=== PATIENT | female | born 1955 | race African-American/Black ===

== ENCOUNTER 2016-04-02 20:44 | Emergency (ER) | payer MEDICARE, MEDICAID ==
[~2016-04-02] VITALS: Ht 167.6 cm; Wt 90.9 kg
[~2016-04-02 20:44] MED LIST: ASCO500C PO; CALCTAB92 PO; HYDR-1530 PO; HYDR-3533 PO; IRON325T2 PO; LISI10TA PO; LOMO PO; NEXI40CA PO; TAB-TAB PO; VITA400D PO; XANA1TAB6 PO; ZOLP10TA3 PO
[2016-04-02 20:47] VITALS: BP 155/95; PULSE 105; RESP 16; TEMP 98.2; O2SAT 96
--- NOTE | 2016-04-03 23:50 | EKG ---
Date Performed: 04/02/2016 Time Performed: 20:59:53 PTAGE: 60 years EKG: Sinus rhythm NORMAL ECG PREVIOUS TRACING : 10/17/2015 08.35 DOCTOR: Natalie Trinidad Interpretating Date/Time 04/03/2016 23:43:29
== END 2016-04-02 22:56 | disposition left against medical advice (07) ==
LOC: NED 20:44
DX: Z53.21 Procedure and treatment not carried out due to patient leaving prior to being seen by health care provider (principal)
CPT/HCPCS: 93005; 99281

== ENCOUNTER 2016-10-09 12:42 | Emergency (ER) | payer MEDICARE, MEDICAID ==
[~2016-10-09] VITALS: Ht 167.6 cm; Wt 90.0 kg
[2016-10-09 12:44] VITALS: BP 129/85; PULSE 101; RESP 20; TEMP 98.6; O2SAT 96
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
[2016-10-09] MEDS ORDERED: NORC5TAB PO (13:48)
[2016-10-09] MEDS ORDERED: XANA1TAB2 PO (13:48)
[2016-10-09] MEDS ORDERED: AMBI10TA PO (13:48)
[2016-10-09] MEDS ORDERED: FURO20TA PO (13:48)
[2016-10-09] MEDS ORDERED: LISI10TA PO (13:48)
[2016-10-09] MEDS ORDERED: NEXI40CA PO (13:48)
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
[2016-10-09 14:05] VITALS: BP 120/81; TEMP 97.8
== END 2016-10-09 14:05 | disposition home or self-care (01) ==
LOC: NEPD 12:42
DX: M25.531 Pain in right wrist (principal); I10 Essential (primary) hypertension; K21.9 Gastro-esophageal reflux disease without esophagitis; Z87.442 Personal history of urinary calculi
CPT/HCPCS: 73110; 99283

== ENCOUNTER 2016-11-04 15:36 | Emergency (ER) | payer MEDICARE, OTHER ==
[~2016-11-04 15:36] MED LIST changes: +AMBI10TA PO; -ASCO500C PO; -CALCTAB92 PO; +FURO20TA PO; -HYDR-1530 PO; -HYDR-3533 PO; -IRON325T2 PO; -LOMO PO; +NORC5TAB PO; -TAB-TAB PO; -VITA400D PO; +XANA1TAB2 PO; -XANA1TAB6 PO; -ZOLP10TA3 PO
[2016-11-04 15:38] VITALS: BP 137/98; PULSE 99; RESP 15; TEMP 98.4; O2SAT 98
--- NOTE | 2016-11-04 16:43 | PD ---
HPI Chief Complaint: Edema Time Seen by Provider: 15:49 Travel History International Travel<30 days: No Contact w/Intl Traveler<30days: No Traveled to known affect area: No History of Present Illness HPI This is a 61-year-old female who presents to the emergency department with swelling in her legs to the been going on for 3 weeks, constant, moderate severity, worse with walking, improved with rest. She denies any shortness of breath, decreased urination or chest pain. She's never had leg swelling like this before. PFSH Past Medical History Arthritis: Yes Autoimmune Disease: No Blood Disorders: No Anxiety: Yes Depression: Yes Heart Rhythm Problems: No Cancer: Yes (LIVER--PT IS UNSURE OF WHAT HER LIVER PROBLEM IS) Cardiovascular Problems: Yes (HTN) High Cholesterol: No Chemotherapy: Yes Chest Pain: Yes Congestive Heart Failure: No Cerebrovascular Accident: No Diabetes: No Diminished Hearing: No Endocrine: Yes Gastrointestinal Disorders: Yes (GERD) GERD: Yes Glaucoma: No Genitourinary: No Headaches: No Hepatitis: No Hiatal Hernia: No Hypertension: Yes Immune Disorder: No Kidney Stones: Yes (LITHOTRIPSY) Medical other: Yes (MASS/NODULES ON LIVER , RIGHT EAR PAIN ,TMJ) Neurologic: No Psychiatric: Yes (ANXIETY) Respiratory: No Immunizations Current: No Myocardial Infarction: No Radiation Therapy: No Renal Failure: No Seizures: No Thyroid Disease: Yes Ulcer: Yes Tetanus Vaccination: Unknown Influenza Vaccination: No Menopausal: Yes : 3 Para: 3 Miscarriage: 0 Past Surgical History Abdominal Surgery: Yes (PARTIAL GASTRECTOMY DUE TO GASTRIC ULCERS,LIVER SX. DUE TO LIVER CA IN 1998) AICD: No Arteriovenous Shunt: No Cardiac Surgery: No Ear Surgery: No Endocrine Surgery: No Eye Surgery: No Genitourinary Surgery: No Gynecologic Surgery: No Hysterectomy: Yes (PARTIAL IN 2000) Joint Replacement: Yes (RIGHT TOTAL KNEE) Neurologic Surgery: No Oral Surgery: Yes Pacemaker: No Thoracic Surgery: No Tonsillectomy: Yes Other Surgery: Yes (Parathyroidectomy, pituatary resection, vagotomy) Social History Alcohol Use: No (PT DENIES ) Tobacco Use: No (PT DENIES) Substance Use: No (PT DENIES) Allergies-Medications (Allergen,Severity, Reaction): Coded Allergies: Contrast Media (Verified Allergy, Intermediate, EDEMA, 11/04/16) Ultram (Verified Allergy, Unknown, swelling, 11/04/16) AMITRIPTYLINE HCL (Verified Adverse Reaction, Severe, PT STATES "KEEPS ME FROM URINATING", 11/04/16) Aspirin (Verified Adverse Reaction, Severe, RINGING EARS, 11/04/16) Benzodiazepines (Verified Adverse Reaction, Severe, RINGING IN EARS, ) Flexeril (Verified Adverse Reaction, Severe, EARS RINGING, 11/04/16) Uncoded Allergies: mucinex (Adverse Reaction, Intermediate, 10/16/15) Reported Meds & Prescriptions Reported Meds & Active Scripts Active Reported Xanax (Alprazolam) 1 Mg Tab 1 Mg PO Q6H PRN Ambien (Zolpidem Tartrate) 10 Mg Tab 10 Mg PO HS PRN Nexium (Esomeprazole DR) 40 Mg Capdr 40 Mg PO DAILY [place] (Hydrocodone-Acetaminophen) 5-325 mg Tab 1 Tab PO Q6H PRN Lisinopril-Hctz 10-12.5 Mg Tab 1 Tab PO DAILY Review of Systems Except as stated in HPI: all other systems reviewed are Neg Physical Exam Narrative GENERAL:Well appearing, no acute distress SKIN: Focused skin assessment warm and dry. HEAD: Atraumatic. Normocephalic. EYES: Pupils equal and round. No injection or drainage. ENT: Moist mucous membranes NECK: Trachea midline. CARDIOVASCULAR: Regular rate and rhythm. No murmur appreciated. 2+ bilateral lower extremity pitting edema. RESPIRATORY: Clear to auscultation. Breath sounds equal bilaterally. GASTROINTESTINAL: Abdomen soft, non-tender, nondistended. MUSCULOSKELETAL: No obvious deformities. NEUROLOGICAL: Awake and alert. No obvious cranial nerve deficits. Moving all extremities. PSYCHIATRIC: Appropriate mood and affect; insight and judgment normal. Data Data Last Documented VS Vital Signs Date Time Temp Pulse Resp B/P Pulse Ox O2 Delivery O2 Flow Rate FiO2 11/04/16 16:05 99 Room Air 11/04/16 15:38 98.4 99 15 137/98 Orders Complete Blood Count With Diff (11/04/16 16:03) Comprehensive Metabolic Panel (11/04/16 16:03) ^ Insert Iv (11/04/16 16:03) B-Type Natriuretic Peptide (11/04/16 16:03) Us Leg Venous Doppler Bilat (11/04/16 ) Labs Laboratory Tests Test 11/04/16 16:30 White Blood Count 6.7 TH/MM3 Red Blood Count 3.94 MIL/MM3 Hemoglobin 10.4 GM/DL Hematocrit 30.0 % Mean Corpuscular Volume 76.2 FL Mean Corpuscular Hemoglobin 26.3 PG Mean Corpuscular Hemoglobin 34.6 % Concent Red Cell Distribution Width 18.0 % Platelet Count 349 TH/MM3 Mean Platelet Volume 8.3 FL Neutrophils (%) (Auto) 59.1 % Lymphocytes (%) (Auto) 26.9 % Monocytes (%) (Auto) 11.3 % Eosinophils (%) (Auto) 1.5 % Basophils (%) (Auto) 1.2 % Neutrophils # (Auto) 4.0 TH/MM3 Lymphocytes # (Auto) 1.8 TH/MM3 Monocytes # (Auto) 0.8 TH/MM3 Eosinophils # (Auto) 0.1 TH/MM3 Basophils # (Auto) 0.1 TH/MM3 CBC Comment AUTO DIFF Differential Comment AUTO DIFF CONFIRMED Sodium Level 143 MEQ/L Potassium Level 4.2 MEQ/L Chloride Level 112 MEQ/L Carbon Dioxide Level 24.0 MEQ/L Anion Gap 7 MEQ/L Blood Urea Nitrogen 15 MG/DL Creatinine 1.19 MG/DL Estimat Glomerular Filtration 56 ML/MIN Rate Random Glucose 157 MG/DL Calcium Level 9.8 MG/DL Total Bilirubin 0.3 MG/DL Aspartate Amino Transf 32 U/L (AST/SGOT) Alanine Aminotransferase 32 U/L (ALT/SGPT) Alkaline Phosphatase 185 U/L B-Type Natriuretic Peptide 114 PG/ML Total Protein 7.6 GM/DL Albumin 3.3 GM/DL MDM Medical Decision Making Medical Screen Exam Complete: Yes Emergency Medical Condition: Yes Interpretation(s) Afebrile, mild tachycardia, mild hypertension No leukocytosis Anemia Electrolytes are reassuring BNP is indeterminate Last 24 hours Impressions Lower Extremity Ultrasound 11/04/16 0000 Signed Impressions: Service Date/Time: Friday, November 04, 2016 17:15 - CONCLUSION: Normal examination. Jose Luis Coburn MD Differential Diagnosis DVT, congestive heart failure, renal failure Narrative Course This is a 61-year-old female who presents to the emergency department with lower extremity swelling that's been present for 3 weeks. She has no other symptoms. Labs were obtained which were reassuring. Her BNP is indeterminate but she has no other signs or symptoms of congestive heart failure. Ultrasound was negative for DVT. I think she is appropriate to follow-up with her outpatient primary care physician. Diagnosis Primary Impression: Dependent edema Patient Instructions: General Instructions Additional Instructions: If you develop severe chest pain, shortness of breath, sweating, lightheadedness , dizziness or difficulty breathing return to the emergency department immediately. Followup with your primary care physician in 2-3 days if your symptoms are not resolved. Med/Other Pt SpecificInfo: No Change to Meds Disposition: 01 DISCHARGE HOME Condition: Stable Brissa Fu MD Nov 04, 2016 16:43
[2016-11-04 17:19] LABS: BASOPHIL # 0.1 TH/MM3 (0-0.2); BASOPHIL % 1.2 % (0.0-2.0); EOSINOPHIL # 0.1 TH/MM3 (0-0.4); EOSINOPHIL % 1.5 % (0.0-4.0); LYMPH % 26.9 % (9.0-44.0); LYMPHOCYTE # 1.8 TH/MM3 (1.0-4.8); MEAN CELL VOLUME 76.2 FL (80.0-100.0); MEAN CORPUSCULAR HEMOGLOBIN 26.3 PG (27.0-34.0); MEAN CORPUSCULAR HGB CONC 34.6 % (32.0-36.0); MONO % 11.3 % (0.0-8.0); NEUT % 59.1 % (16.0-70.0); PLATELET COUNT 349 TH/MM3 (150-450); RED BLOOD COUNT 3.94 MIL/MM3 (4.00-5.30); WHITE BLOOD COUNT 6.7 TH/MM3 (4.0-11.0)
[2016-11-04 17:29] LABS: HEMO FLAGS AUTO DIFF
[2016-11-04 17:36] LABS: ALT (GPT) 32 U/L (10-53); ANION GAP 7 MEQ/L (5-15); AST (GOT) 32 U/L (15-37); BLOOD UREA NITROGEN 15 MG/DL (7-18); CHLORIDE 112 MEQ/L (98-107); GLOMERULAR FILTRATION RATE 56 ML/MIN (>89); SODIUM (NA) 143 MEQ/L (136-145)
[2016-11-04 17:37] LABS: ALKALINE PHOSPHATASE 185 U/L (45-117); TOTAL BILIRUBIN ADULT 0.3 MG/DL (0.2-1.0)
--- NOTE | 2016-11-04 17:47 | RADRPT ---
EXAM DATE/TIME: 11/04/2016 17:15 [facility] COMPARISON: No previous studies available for comparison. INDICATIONS : Bilateral leg swelling. MEDICAL HISTORY : Hypothyroidism. Hypertension. Gastroesophageal reflux disease. Ulcers. Renal lithiasis. SURGICAL HISTORY : Tonsillectomy. Partial gastrectomy. partial hysterectomy. Lithotripsy. ENCOUNTER: Initial ACUITY: 3 weeks PAIN SCORE: 8/10 LOCATION: Bilateral legs. TECHNIQUE: Venous ultrasound of the left and right leg was performed from the inguinal ligament to the proximal calf. Real-time, color Doppler and spectral tracing, compression and augmentation techniques were us ed. FINDINGS: RIGHT LEG: There is normal compressibility of the deep venous system from the inguinal region to the proximal ca lf. No echogenic clot is seen in the lumen of the common femoral, femoral, popliteal, and posterior tibial veins. There is a normal response of the venous system to proximal and distal augmentation an d respiration. LEFT LEG: There is normal compressibility of the deep venous system from the inguinal region to the proximal ca lf. No echogenic clot is seen in the lumen of the common femoral, femoral, popliteal, and posterior tibial veins. There is a normal response of the venous system to proximal and distal augmentation an d respiration. CONCLUSION: Normal examination. Jose Luis Coburn MD on November 04, 2016 at 17:45 Board Certified Radiologist. This report was verified electronically.
[2016-11-04 17:51] LABS: POTASSIUM 4.2 MEQ/L (3.5-5.1)
[2016-11-04 17:56] LABS: SCAN/DIFF AUTO DIFF CONFIRMED
== END 2016-11-04 18:48 | disposition home or self-care (01) ==
LOC: NEPE 15:36
DX: R60.0 Localized edema (principal); I10 Essential (primary) hypertension; Z87.442 Personal history of urinary calculi; Z87.19 Personal history of other diseases of the digestive system; K21.9 Gastro-esophageal reflux disease without esophagitis; E03.9 Hypothyroidism, unspecified
CPT/HCPCS: 80053; 83880; 85025; 93970; 99284

== ENCOUNTER 2016-12-02 08:08 | Emergency (ER) | payer MEDICARE, OTHER ==
[~2016-12-02 08:08] MED LIST changes: -FURO20TA PO
[2016-12-02 08:11] VITALS: BP 136/96; PULSE 115; RESP 15; TEMP 98.4; O2SAT 98
[2016-12-02 08:18] VITALS: PULSE 89
[2016-12-02 08:34] LABS: BLOOD, URINE NEG (NEG); COMMENT (UR) CULT NOT INDICATED; CULTURE IF INDICATED CULT NOT INDICATED; GLUCOSE,URINE NEG (NEG); KETONE, URINE NEG (NEG); NITRITE,URINE NEG (NEG); PH, URINE 5.5 (5.0-8.5); URINE COLOR LIGHT-YELLOW (YELLW/STRAW)
[2016-12-02] MEDS ORDERED: FENT50DI T-DERMAL (09:04)
--- NOTE | 2016-12-02 09:28 | PD ---
HPI Chief Complaint: Complaint Time Seen by Provider: 09:04 Travel History International Travel<30 days: No Contact w/Intl Traveler<30days: No Traveled to known affect area: No History of Present Illness HPI 7-year-old with a recurrent complaint of increase urination "all night". Skin surface may have diabetes. States she has been feeling well for a while and has been losing some weight. She looks otherwise well. No other complaints. History Past Medical History Narrative Medical Past medical problems patient states "see my chart" Records show, arthritis, anxiety, depression, possible cancer, hypertension, chemotherapy, chest pain, GERD, kidney stones and lithotripsy, anxiety Menopausal: Yes : 3 Para: 3 Social History Alcohol Use: No (PT DENIES ) Tobacco Use: No (PT DENIES) Allergies-Medications (Allergen,Severity, Reaction): Coded Allergies: diatrizoate meglumine (Unverified Allergy, Intermediate, EDEMA, 11/13/16) gadobenic acid (Unverified Allergy, Intermediate, EDEMA, 11/13/16) gadodiamide (Unverified Allergy, Intermediate, EDEMA, 11/13/16) gadoteridol (Unverified Allergy, Intermediate, EDEMA, 11/13/16) iodixanol (Unverified Allergy, Intermediate, EDEMA, 11/13/16) iohexol (Unverified Allergy, Intermediate, EDEMA, 11/13/16) tramadol (Unverified Allergy, Unknown, swelling, 11/13/16) alprazolam (Unverified Adverse Reaction, Severe, RINGING IN EARS, 11/13/16) amitriptyline (Unverified Adverse Reaction, Severe, PT STATES "KEEPS ME FROM URINATING", 11/13/16) aspirin (Unverified Adverse Reaction, Severe, RINGING EARS, 11/13/16) clonazepam (Unverified Adverse Reaction, Severe, RINGING IN EARS, 11/13/16) clorazepate dipotassium (Unverified Adverse Reaction, Severe, RINGING IN EARS, 11/13/16) cyclobenzaprine (Unverified Adverse Reaction, Severe, EARS RINGING, ) diazepam (Unverified Adverse Reaction, Severe, RINGING IN EARS, 11/13/16) lorazepam (Unverified Adverse Reaction, Severe, RINGING IN EARS, 11/13/16) midazolam (Unverified Adverse Reaction, Severe, RINGING IN EARS, 11/13/16) oxazepam (Unverified Adverse Reaction, Severe, RINGING IN EARS, 11/13/16) temazepam (Unverified Adverse Reaction, Severe, RINGING IN EARS, 11/13/16) Uncoded Allergies: mucinex (Adverse Reaction, Intermediate, 10/16/15) Reported Meds & Prescriptions Reported Meds & Active Scripts Active Reported Fentanyl Patch 72 HR (Fentanyl) 50 Mcg/Hr Patch 50 Mcg T-DERMAL Q72H Remove old patch when new one placed. Xanax (Alprazolam) 1 Mg Tab 1 Mg PO Q6H PRN Ambien (Zolpidem Tartrate) 10 Mg Tab 10 Mg PO HS PRN Nexium (Esomeprazole DR) 40 Mg Capdr 40 Mg PO DAILY [place] (Hydrocodone-Acetaminophen) 5-325 mg Tab 1 Tab PO Q6H PRN Lisinopril-Hctz 10-12.5 Mg Tab 1 Tab PO DAILY Review of Systems Except as stated in HPI: all other systems reviewed are Neg Physical Exam Narrative GENERAL: Well-appearing 7-year-old woman in acute distress. SKIN: Focused skin assessment warm/dry. HEAD: Atraumatic. Normocephalic. EYES: Pupils equal and round. No scleral icterus. No injection or drainage. ENT: No nasal bleeding or discharge. Mucous membranes pink and moist. NECK: Trachea midline. No JVD. CARDIOVASCULAR: Regular rate and rhythm. No murmur appreciated. RESPIRATORY: No accessory muscle use. Clear to auscultation. Breath sounds equal bilaterally. GASTROINTESTINAL: Abdomen soft, non-tender, nondistended. Hepatic and splenic margins not palpable. MUSCULOSKELETAL: No obvious deformities. No clubbing. No cyanosis. No edema. NEUROLOGICAL: Awake and alert. No obvious cranial nerve deficits. Motor grossly within normal limits. Normal speech. PSYCHIATRIC: Appropriate mood and affect; insight and judgment normal. Data Data Last Documented VS Vital Signs Date Time Temp Pulse Resp B/P (MAP) Pulse Ox O2 Delivery O2 Flow Rate FiO2 12/02/16 08:18 89 12/02/16 08:11 98.4 15 98 Orders Orders Urinalysis - C+S If Indicated (12/02/16 08:17) Labs Laboratory Tests Test 12/02/16 08:25 Urine Color LIGHT-YELLOW Urine Turbidity CLEAR Urine pH 5.5 Urine Specific [place] 1.008 Urine Protein NEG mg/dL Urine Glucose (UA) NEG mg/dL Urine Ketones NEG mg/dL Urine Occult Blood NEG Urine Nitrite NEG Urine Bilirubin NEG Urine Urobilinogen LESS THAN 2.0 MG/DL Urine Leukocyte Esterase TRACE Urine RBC LESS THAN 1 /hpf Urine WBC 1 /hpf Microscopic Urinalysis Comment CULT NOT INDICATED MDM Medical Decision Making Medical Screen Exam Complete: Yes Emergency Medical Condition: Yes Interpretation(s) Urine is negative, nonfasting blood sugar 150 Differential Diagnosis Diabetes, diuretic use, anxiety, infection, other Narrative Course Medical decision making a 7-year-old woman complaining of frequent urination. Blood sugar and urine is unremarkable. Recommend outpatient follow-up. Diagnosis Primary Impression: Frequency of urination Additional Instructions: Follow-up with her primary doctor Saturday. Return to the emergency department for any new or worsening symptoms. Disposition: 01 DISCHARGE HOME Condition: Stable Hermilo Sky MD Dec 02, 2016 09:28
== END 2016-12-02 09:40 | disposition home or self-care (01) ==
LOC: NEPD 08:08
DX: R35.0 Frequency of micturition (principal); M13.80 Other specified arthritis, unspecified site; F41.9 Anxiety disorder, unspecified; F32.9 Major depressive disorder, single episode, unspecified; I10 Essential (primary) hypertension; K21.9 Gastro-esophageal reflux disease without esophagitis; Z87.442 Personal history of urinary calculi; Z79.899 Other long term (current) drug therapy; Z88.8 Allergy status to other drugs, medicaments and biological substances
CPT/HCPCS: 81001; 99283

== ENCOUNTER 2017-04-25 14:38 | Emergency (ER) | payer MEDICARE, OTHER ==
[~2017-04-25] VITALS: Ht 170.2 cm; Wt 80.0 kg
[~2017-04-25 14:38] MED LIST changes: +FENT50DI T-DERMAL
[2017-04-25 14:59] VITALS: BP 164/103; PULSE 124; RESP 20; TEMP 98.6; O2SAT 98
[2017-04-25 15:10] VITALS: O2SAT 95
--- NOTE | 2017-04-25 17:06 | PD ---
HPI Chief Complaint: Altered Mental Status Time Seen by Provider: 15:24 Travel History International Travel<30 days: No Contact w/Intl Traveler<30days: No Traveled to known affect area: No History of Present Illness HPI 61-year-old female with history of dementia, presents here today with complaints of worsening dementia. Patient is brought in by EVAC after her daughter apparently found her knocking on her neighbor's door. Daughter states that she has been progressively becoming more demented. The patient is unable to give any history. Daughter states that she has been becoming more and more paranoid. She reports that she feels as though she also needs to be seen by psychiatrist. There is no reported fevers, chills. There is no reported cough. There is no reported nausea vomiting diarrhea. There are no other complaints at the time of my examination. PFSH Past Medical History Arthritis: Yes Autoimmune Disease: No Blood Disorders: No Anxiety: Yes Depression: Yes Heart Rhythm Problems: No Cancer: Yes (LIVER--PT IS UNSURE OF WHAT HER LIVER PROBLEM IS) Cardiovascular Problems: Yes (HTN) High Cholesterol: No Chemotherapy: Yes Chest Pain: Yes Congestive Heart Failure: No Cerebrovascular Accident: No Diabetes: Yes Patient Takes Glucophage: No Diminished Hearing: No Endocrine: Yes Gastrointestinal Disorders: Yes (GERD) GERD: Yes Glaucoma: No Genitourinary: No Headaches: No Hepatitis: No Hiatal Hernia: No Hypertension: Yes Immune Disorder: No Kidney Stones: Yes (LITHOTRIPSY) Medical other: Yes (MASS/NODULES ON LIVER , RIGHT EAR PAIN ?TMJ) Neurologic: No Psychiatric: Yes (ANXIETY) Reproductive: No Respiratory: No Immunizations Current: No Myocardial Infarction: No Radiation Therapy: No Renal Failure: No Seizures: No Thyroid Disease: Yes Ulcer: Yes Tetanus Vaccination: Unknown Influenza Vaccination: No ?: Not Menopausal: Yes : 3 Para: 3 Miscarriage: 0 Past Surgical History Abdominal Surgery: Yes (PARTIAL GASTRECTOMY DUE TO GASTRIC ULCERS,LIVER SX. DUE TO LIVER CA IN 1998) AICD: No Arteriovenous Shunt: No Cardiac Surgery: No Ear Surgery: No Endocrine Surgery: No Eye Surgery: No Genitourinary Surgery: No Gynecologic Surgery: No Hysterectomy: Yes (PARTIAL IN 2000) Insulin Pump: No Joint Replacement: Yes (RIGHT TOTAL KNEE) Neurologic Surgery: No Oral Surgery: Yes Pacemaker: No Thoracic Surgery: No Tonsillectomy: Yes Other Surgery: Yes (Parathyroidectomy, pituatary resection, vagotomy) Social History Alcohol Use: No Tobacco Use: No Substance Use: No Allergies-Medications (Allergen,Severity, Reaction): Coded Allergies: diatrizoate meglumine (Unverified Allergy, Intermediate, EDEMA, 04/25/17) gadobenic acid (Unverified Allergy, Intermediate, EDEMA, 04/25/17) gadodiamide (Unverified Allergy, Intermediate, EDEMA, 04/25/17) gadoteridol (Unverified Allergy, Intermediate, EDEMA, 04/25/17) iodixanol (Unverified Allergy, Intermediate, EDEMA, 04/25/17) iohexol (Unverified Allergy, Intermediate, EDEMA, 04/25/17) tramadol (Unverified Allergy, Unknown, swelling, 04/25/17) alprazolam (Unverified Adverse Reaction, Severe, RINGING IN EARS, 04/25/17) amitriptyline (Unverified Adverse Reaction, Severe, PT STATES "KEEPS ME FROM URINATING", 04/25/17) aspirin (Unverified Adverse Reaction, Severe, RINGING EARS, 04/25/17) clonazepam (Unverified Adverse Reaction, Severe, RINGING IN EARS, 04/25/17) clorazepate dipotassium (Unverified Adverse Reaction, Severe, RINGING IN EARS, 04/25/17) cyclobenzaprine (Unverified Adverse Reaction, Severe, EARS RINGING, ) diazepam (Unverified Adverse Reaction, Severe, RINGING IN EARS, 04/25/17) lorazepam (Unverified Adverse Reaction, Severe, RINGING IN EARS, 04/25/17) midazolam (Unverified Adverse Reaction, Severe, RINGING IN EARS, 04/25/17) oxazepam (Unverified Adverse Reaction, Severe, RINGING IN EARS, 04/25/17) temazepam (Unverified Adverse Reaction, Severe, RINGING IN EARS, 04/25/17) Uncoded Allergies: mucinex (Adverse Reaction, Intermediate, 10/16/15) Reported Meds & Prescriptions Reported Meds & Active Scripts Active Reported Fentanyl Patch 72 HR (Fentanyl) 50 Mcg/Hr Patch 50 Mcg T-DERMAL Q72H Remove old patch when new one placed. Xanax (Alprazolam) 1 Mg Tab 1 Mg PO Q6H PRN Ambien (Zolpidem Tartrate) 10 Mg Tab 10 Mg PO HS PRN Nexium (Esomeprazole DR) 40 Mg Capdr 40 Mg PO DAILY [place] (Hydrocodone-Acetaminophen) 5-325 mg Tab 1 Tab PO Q6H PRN Lisinopril-Hctz 10-12.5 Mg Tab 1 Tab PO DAILY Review of Systems ROS Limitations: Clinical Condition (Unable to obtain clear review of systems other than what the daughter provided in the HPI.), Poor Historian (Patient has a history of dementia and is unable to give any clear history.) Physical Exam Narrative GENERAL: Well-developed well-nourished female in no acute respiratory distress. The patient was chewing on ice when I entered the room. She was cooperative however was not able to give clear history secondary to her history of dementia. SKIN: Focused skin assessment warm/dry. HEAD: Atraumatic. Normocephalic. EYES: Pupils equal and round. No scleral icterus. No injection or drainage. ENT: No nasal bleeding or discharge. Mucous membranes pink and moist. NECK: Trachea midline. Supple. CARDIOVASCULAR: Regular rate and rhythm. No murmur appreciated. RESPIRATORY: No accessory muscle use. Clear to auscultation. Breath sounds equal bilaterally. GASTROINTESTINAL: Abdomen soft, non-tender, nondistended. Hepatic and splenic margins not palpable. MUSCULOSKELETAL: No obvious deformities. No clubbing. No cyanosis. No edema. NEUROLOGICAL: Awake and confused. She would follow commands. No obvious cranial nerve deficits. Motor grossly within normal limits. Normal speech. PSYCHIATRIC: Patient is guarded. She also states that her daughter's young children are not able to care for her and are out to get her. Data Data Last Documented VS Vital Signs Date Time Temp Pulse Resp B/P (MAP) Pulse Ox O2 Delivery O2 Flow Rate FiO2 04/25/17 15:10 95 Room Air 04/25/17 14:59 98.6 124 20 164/103 (123) Orders Orders Complete Blood Count With Diff (04/25/17 15:48) Basic Metabolic Panel (Bmp) (04/25/17 15:48) Urinalysis - C+S If Indicated (04/25/17 15:48) Iv Access Insert/Monitor (04/25/17 15:48) Ecg Monitoring (04/25/17 15:48) Oximetry (04/25/17 15:48) Psych Screen (04/25/17 15:48) MDM Medical Decision Making Medical Screen Exam Complete: Yes Emergency Medical Condition: Yes Differential Diagnosis Worsening dementia versus paranoid component versus metabolic derangement. Narrative Course 61-year-old female history of dementia, sent here by her daughter for worsening dementia. The patient apparently was found outside knocking on her next-door neighbor's door. The daughter was concerned that the patient could have a psychiatric component here. The patient is awake answering questions however appropriately demented. She is nontoxic appearing. There is no reported nausea vomiting diarrhea. The patient has no fever. She does not appear to be in any distress. The patient is not suicidal or homicidal. I had our keycase assembler come and see the patient and the daughter. The daughter initially wanted to have psychiatry see her. After waiting for psychiatry screen, the daughter states that she wishes to take her mother home. She will take her home and follow-up with her doctor. She is instructed she can return anytime. T the patient and daughter refusing blood work and urine at this time. I do not feel it is necessary at this time. Diagnosis Primary Impression: Worsening dementia Additional Instructions: Follow-up with primary care physician. Return if fevers, chills, nausea vomiting diarrhea, or any other recent concerns. Disposition: 01 DISCHARGE HOME Condition: Stable Andrew Almeida MD Apr 25, 2017 17:06
[2017-04-25 18:00] LABS: BACTERIA, URINE RARE /hpf; BILIRUBIN, URINE NEG (NEG); BLOOD, URINE NEG (NEG); CALCIUM OXALATE CRYSTALS,URINE OCC /hpf; GLUCOSE,URINE NEG (NEG); HYALINE CAST, URINE 3 /lpf (RARE); KETONE, URINE NEG (NEG); MUCUS URINE FEW /lpf (OCC); NITRITE,URINE NEG (NEG); PH, URINE 5.5 (5.0-8.5); SQUAMOUS EPITHELIAL CELL URINE 2 /hpf (0-5); URINE COLOR YELLOW (YELLW/STRAW); URINE LEUKOCYTE ESTERASE MOD (NEG)
== END 2017-04-25 17:34 | disposition home or self-care (01) ==
LOC: NEPE 14:38
DX: F03.90 Unspecified dementia, unspecified severity, without behavioral disturbance, psychotic disturbance, mood disturbance, and anxiety (principal); F32.9 Major depressive disorder, single episode, unspecified; E11.9 Type 2 diabetes mellitus without complications; I10 Essential (primary) hypertension; R82.99 Other abnormal findings in urine; K21.9 Gastro-esophageal reflux disease without esophagitis; B96.89 Other specified bacterial agents as the cause of diseases classified elsewhere; Z85.05 Personal history of malignant neoplasm of liver
CPT/HCPCS: 81001; 87086; 99283

== ENCOUNTER 2017-04-26 04:21 | Inpatient (IN) | payer MEDICARE, OTHER ==
[~2017-04-26] VITALS: Ht 167.6 cm; Wt 80.0 kg
[2017-04-26 04:39] VITALS: BP 142/75; PULSE 80; RESP 16; TEMP 98.6; O2SAT 98
[2017-04-26] MEDS ORDERED: ACETAMINOPHEN 325 MG TAB PO ONE (04:45)
[2017-04-26] MEDS ORDERED: OLANZapine IM 10 MG VIAL IM ONE (04:45)
--- NOTE | 2017-04-26 04:52 | PD ---
HPI Chief Complaint: Psychiatric Symptoms Time Seen by Provider: 04:39 Travel History International Travel<30 days: No Contact w/Intl Traveler<30days: No Traveled to known affect area: No History of Present Illness HPI 61-year-old black female presents to the emergency department under [place] act by PD. She was found wandering outside. The patient appears confused. This is a patient was just seen in the ER yesterday for worsening dementia. History is visit was an evaluation because she was out side knocking on neighbor's doors. Patient was taken home by family members. The patient here complains of a headache. She is pleasantly confused. She is unable to give any meaningful history. PFSH Past Medical History Narrative Medical History through review the medical record. Arthritis: Yes Autoimmune Disease: No Blood Disorders: No Anxiety: Yes Depression: Yes Heart Rhythm Problems: No Cancer: Yes (LIVER--PT IS UNSURE OF WHAT HER LIVER PROBLEM IS) Cardiovascular Problems: Yes (HTN) High Cholesterol: No Chemotherapy: Yes Chest Pain: Yes Congestive Heart Failure: No Cerebrovascular Accident: No Diabetes: Yes Patient Takes Glucophage: No Diminished Hearing: No Endocrine: Yes Gastrointestinal Disorders: Yes (GERD) GERD: Yes Glaucoma: No Genitourinary: No Headaches: No Hepatitis: No Hiatal Hernia: No Hypertension: Yes Immune Disorder: No Kidney Stones: Yes (LITHOTRIPSY) Medical other: Yes (MASS/NODULES ON LIVER , RIGHT EAR PAIN ?TMJ) Neurologic: No Psychiatric: Yes (ANXIETY) Reproductive: No Respiratory: No Immunizations Current: No Myocardial Infarction: No Radiation Therapy: No Renal Failure: No Seizures: No Thyroid Disease: Yes Ulcer: Yes Menopausal: Yes : 3 Para: 3 Miscarriage: 0 Past Surgical History Abdominal Surgery: Yes (PARTIAL GASTRECTOMY DUE TO GASTRIC ULCERS,LIVER SX. DUE TO LIVER CA IN 1998) AICD: No Arteriovenous Shunt: No Cardiac Surgery: No Ear Surgery: No Endocrine Surgery: No Eye Surgery: No Genitourinary Surgery: No Gynecologic Surgery: No Hysterectomy: Yes (PARTIAL IN 2000) Insulin Pump: No Joint Replacement: Yes (RIGHT TOTAL KNEE) Neurologic Surgery: No Oral Surgery: Yes Pacemaker: No Thoracic Surgery: No Tonsillectomy: Yes Other Surgery: Yes (Parathyroidectomy, pituatary resection, vagotomy) Social History Alcohol Use: No Tobacco Use: No Substance Use: No Allergies-Medications (Allergen,Severity, Reaction): Coded Allergies: diatrizoate meglumine (Unverified Allergy, Intermediate, EDEMA, 04/25/17) gadobenic acid (Unverified Allergy, Intermediate, EDEMA, 04/25/17) gadodiamide (Unverified Allergy, Intermediate, EDEMA, 04/25/17) gadoteridol (Unverified Allergy, Intermediate, EDEMA, 04/25/17) iodixanol (Unverified Allergy, Intermediate, EDEMA, 04/25/17) iohexol (Unverified Allergy, Intermediate, EDEMA, 04/25/17) tramadol (Unverified Allergy, Unknown, swelling, 04/25/17) alprazolam (Unverified Adverse Reaction, Severe, RINGING IN EARS, 04/25/17) amitriptyline (Unverified Adverse Reaction, Severe, PT STATES "KEEPS ME FROM URINATING", 04/25/17) aspirin (Unverified Adverse Reaction, Severe, RINGING EARS, 04/25/17) clonazepam (Unverified Adverse Reaction, Severe, RINGING IN EARS, 04/25/17) clorazepate dipotassium (Unverified Adverse Reaction, Severe, RINGING IN EARS, 04/25/17) cyclobenzaprine (Unverified Adverse Reaction, Severe, EARS RINGING, ) diazepam (Unverified Adverse Reaction, Severe, RINGING IN EARS, 04/25/17) lorazepam (Unverified Adverse Reaction, Severe, RINGING IN EARS, 04/25/17) midazolam (Unverified Adverse Reaction, Severe, RINGING IN EARS, 04/25/17) oxazepam (Unverified Adverse Reaction, Severe, RINGING IN EARS, 04/25/17) temazepam (Unverified Adverse Reaction, Severe, RINGING IN EARS, 04/25/17) Uncoded Allergies: mucinex (Adverse Reaction, Intermediate, 10/16/15) Reported Meds & Prescriptions Reported Meds & Active Scripts Active Reported Fentanyl Patch 72 HR (Fentanyl) 50 Mcg/Hr Patch 50 Mcg T-DERMAL Q72H Remove old patch when new one placed. Xanax (Alprazolam) 1 Mg Tab 1 Mg PO Q6H PRN Ambien (Zolpidem Tartrate) 10 Mg Tab 10 Mg PO HS PRN Nexium (Esomeprazole DR) 40 Mg Capdr 40 Mg PO DAILY [place] (Hydrocodone-Acetaminophen) 5-325 mg Tab 1 Tab PO Q6H PRN Lisinopril-Hctz 10-12.5 Mg Tab 1 Tab PO DAILY Review of Systems ROS Limitations: Poor Historian Physical Exam Narrative GENERAL: Well-nourished, well-developed patient. SKIN: Warm and dry. HEAD: Normocephalic and atraumatic. EYES: No scleral icterus. No injection or drainage. ENT: No nasal drainage noted. Mucous membranes pink. Airway patent. NECK: Supple, trachea midline. Moves head freely without obvious discomfort. CARDIOVASCULAR: Regular rate and rhythm without murmurs, gallops, or rubs. RESPIRATORY: Breath sounds equal bilaterally. No accessory muscle use. GASTROINTESTINAL: Abdomen soft, non-tender, nondistended. EXTREMITIES: No cyanosis or edema. BACK: Nontender without obvious deformity. No CVA tenderness. NEURO: Patient is alert and oriented. no sensorimotor deficits. Nonfocal. Normal speech. PSYCH: Acutely confused. She does not appear to be hallucinating.. Data Data Last Documented VS Vital Signs Date Time Temp Pulse Resp B/P (MAP) Pulse Ox O2 Delivery O2 Flow Rate FiO2 04/26/17 04:39 98.6 80 16 142/75 (97) 98 Orders Orders Complete Blood Count With Diff (04/26/17 04:41) Comprehensive Metabolic Panel (04/26/17 04:41) Thyroid Stimulating Hormone (04/26/17 04:41) Urinalysis - C+S If Indicated (04/26/17 04:41) Psych Screen (04/26/17 04:41) Drug Screen, Random Urine (04/26/17 04:41) Alcohol (Ethanol) (04/26/17 04:41) Salicylates (Aspirin) (04/26/17 04:41) Tylenol (Acetaminophen) (04/26/17 04:41) Acetaminophen (Tylenol) (04/26/17 04:45) Olanzapine Inj (Zyprexa Inj) (04/26/17 04:45) Urine Culture (04/26/17 05:20) Nitrofurantoin Monohyd Macrocr (Macrobid (04/26/17 06:30) Labs Laboratory Tests Test 04/26/17 05:20 White Blood Count 13.4 TH/MM3 Red Blood Count 4.38 MIL/MM3 Hemoglobin 11.9 GM/DL Hematocrit 35.9 % Mean Corpuscular Volume 81.9 FL Mean Corpuscular Hemoglobin 27.2 PG Mean Corpuscular Hemoglobin Concent 33.2 % Red Cell Distribution Width 16.3 % Platelet Count 380 TH/MM3 Mean Platelet Volume 7.8 FL Neutrophils (%) (Auto) 82.5 % Lymphocytes (%) (Auto) 9.2 % Monocytes (%) (Auto) 7.4 % Eosinophils (%) (Auto) 0.3 % Basophils (%) (Auto) 0.6 % Neutrophils # (Auto) 11.1 TH/MM3 Lymphocytes # (Auto) 1.2 TH/MM3 Monocytes # (Auto) 1.0 TH/MM3 Eosinophils # (Auto) 0.0 TH/MM3 Basophils # (Auto) 0.1 TH/MM3 CBC Comment DIFF FINAL Differential Comment Urine Color YELLOW Urine Turbidity HAZY Urine pH 5.0 Urine Specific [place] 1.025 Urine Protein 30 mg/dL Urine Glucose (UA) NEG mg/dL Urine Ketones NEG mg/dL Urine Occult Blood NEG Urine Nitrite NEG Urine Bilirubin NEG Urine Urobilinogen LESS THAN 2.0 MG/DL Urine Leukocyte Esterase MOD Urine RBC 29 /hpf Urine WBC 21 /hpf Urine Transitional Epithelial Cells 1 /hpf Urine Bacteria OCC /hpf Microscopic Urinalysis Comment CATH-CULTURE IND Blood Urea Nitrogen 29 MG/DL Creatinine 0.94 MG/DL Random Glucose 118 MG/DL Total Protein 8.2 GM/DL Albumin 3.5 GM/DL Calcium Level 9.7 MG/DL Alkaline Phosphatase 317 U/L Aspartate Amino Transf (AST/SGOT) 35 U/L Alanine Aminotransferase (ALT/SGPT) 60 U/L Total Bilirubin 0.3 MG/DL Sodium Level 140 MEQ/L Potassium Level 4.0 MEQ/L Chloride Level 108 MEQ/L Carbon Dioxide Level 22.7 MEQ/L Anion Gap 9 MEQ/L Estimat Glomerular Filtration Rate 73 ML/MIN Thyroid Stimulating Hormone 3rd Gen 0.557 uIU/ML Salicylates Level LESS THAN 1.7 MG/DL Urine Opiates Screen NEG Acetaminophen Level LESS THAN 2.0 MCG/ML Urine Barbiturates Screen NEG Urine Amphetamines Screen NEG Urine Benzodiazepines Screen NEG Urine Cocaine Screen NEG Urine Cannabinoids Screen NEG Ethyl Alcohol Level LESS THAN 3 MG/DL MDM Medical Decision Making Medical Screen Exam Complete: Yes Emergency Medical Condition: Yes Medical Record Reviewed: Yes Interpretation(s) Laboratory Tests Test 04/26/17 05:20 White Blood Count 13.4 TH/MM3 Red Blood Count 4.38 MIL/MM3 Hemoglobin 11.9 GM/DL Hematocrit 35.9 % Mean Corpuscular Volume 81.9 FL Mean Corpuscular Hemoglobin 27.2 PG Mean Corpuscular Hemoglobin Concent 33.2 % Red Cell Distribution Width 16.3 % Platelet Count 380 TH/MM3 Mean Platelet Volume 7.8 FL Neutrophils (%) (Auto) 82.5 % Lymphocytes (%) (Auto) 9.2 % Monocytes (%) (Auto) 7.4 % Eosinophils (%) (Auto) 0.3 % Basophils (%) (Auto) 0.6 % Neutrophils # (Auto) 11.1 TH/MM3 Lymphocytes # (Auto) 1.2 TH/MM3 Monocytes # (Auto) 1.0 TH/MM3 Eosinophils # (Auto) 0.0 TH/MM3 Basophils # (Auto) 0.1 TH/MM3 CBC Comment DIFF FINAL Differential Comment Urine Color YELLOW Urine Turbidity HAZY Urine pH 5.0 Urine Specific [place] 1.025 Urine Protein 30 mg/dL Urine Glucose (UA) NEG mg/dL Urine Ketones NEG mg/dL Urine Occult Blood NEG Urine Nitrite NEG Urine Bilirubin NEG Urine Urobilinogen LESS THAN 2.0 MG/DL Urine Leukocyte Esterase MOD Urine RBC 29 /hpf Urine WBC 21 /hpf Urine Transitional Epithelial Cells 1 /hpf Urine Bacteria OCC /hpf Microscopic Urinalysis Comment CATH-CULTURE IND Blood Urea Nitrogen 29 MG/DL Creatinine 0.94 MG/DL Random Glucose 118 MG/DL Total Protein 8.2 GM/DL Albumin 3.5 GM/DL Calcium Level 9.7 MG/DL Alkaline Phosphatase 317 U/L Aspartate Amino Transf (AST/SGOT) 35 U/L Alanine Aminotransferase (ALT/SGPT) 60 U/L Total Bilirubin 0.3 MG/DL Sodium Level 140 MEQ/L Potassium Level 4.0 MEQ/L Chloride Level 108 MEQ/L Carbon Dioxide Level 22.7 MEQ/L Anion Gap 9 MEQ/L Estimat Glomerular Filtration Rate 73 ML/MIN Thyroid Stimulating Hormone 3rd Gen 0.557 uIU/ML Salicylates Level LESS THAN 1.7 MG/DL Urine Opiates Screen NEG Acetaminophen Level LESS THAN 2.0 MCG/ML Urine Barbiturates Screen NEG Urine Amphetamines Screen NEG Urine Benzodiazepines Screen NEG Urine Cocaine Screen NEG Urine Cannabinoids Screen NEG Ethyl Alcohol Level LESS THAN 3 MG/DL Differential Diagnosis MDM: High Differential diagnoses: Schizophrenia, schizoaffective disorder, bipolar, anxiety, depression, adjustment reaction, mood disorder NOS, ODD, depressive disorder NOS, dementia, dementia with agitation, psychosis NOS, substance induced mood disorder, DMDD, Asperger syndrome, infection,electrolyte abnormality, malingering. Narrative Course The patient is given 650 mg of Tylenol by mouth for her headache and 10 mg of Zyprexa. Patient is also given Macrobid 100 mg by mouth Patient has a tract infection. She has a mildly elevated white count and a mildly elevated alkaline phosphatase of 317. Etiology is unclear. Mental health screening discussed with the patient. Psychiatric screen ordered. The patient is been medically cleared. This is medical clearance for psychiatric admission, dementia, UTI Diagnosis Primary Impression: Medical clearance for psychiatric admission Additional Impressions: Dementia Qualified Codes: F03.91 - Unspecified dementia with behavioral disturbance Urinary tract infection Qualified Codes: N39.0 - Urinary tract infection, site not specified Condition: Jose Luis Amezcua Apr 26, 2017 04:52
[2017-04-26 05:39] LABS: AUTOMATED NEUTROPHIL # 11.1 TH/MM3 (1.8-7.7); BASOPHIL # 0.1 TH/MM3 (0-0.2); BASOPHIL % 0.6 % (0.0-2.0); EOSINOPHIL % 0.3 % (0.0-4.0); HEMATOCRIT 35.9 % (35.0-46.0); HEMOGLOBIN 11.9 GM/DL (11.6-15.3); LYMPH % 9.2 % (9.0-44.0); LYMPHOCYTE # 1.2 TH/MM3 (1.0-4.8); MEAN CELL VOLUME 81.9 FL (80.0-100.0); MEAN CORPUSCULAR HEMOGLOBIN 27.2 PG (27.0-34.0); MEAN CORPUSCULAR HGB CONC 33.2 % (32.0-36.0); MEAN PLATELET VOLUME 7.8 FL (7.0-11.0); MONO % 7.4 % (0.0-8.0); NEUT % 82.5 % (16.0-70.0); PLATELET COUNT 380 TH/MM3 (150-450); RED BLOOD COUNT 4.38 MIL/MM3 (4.00-5.30); RED CELL DISTRIBUTION WIDTH 16.3 % (11.6-17.2); WHITE BLOOD COUNT 13.4 TH/MM3 (4.0-11.0)
[2017-04-26 05:49] LABS: BACTERIA, URINE OCC /hpf; BILIRUBIN, URINE NEG (NEG); BLOOD, URINE NEG (NEG); GLUCOSE,URINE NEG (NEG); KETONE, URINE NEG (NEG); NITRITE,URINE NEG (NEG); TRANSITIONAL EPI CELLS, URINE 1 /hpf; URINE COLOR YELLOW (YELLW/STRAW); URINE LEUKOCYTE ESTERASE MOD (NEG)
[2017-04-26 06:03] LABS: ALBUMIN 3.5 GM/DL (3.4-5.0); ALT (GPT) 60 U/L (10-53); AST (GOT) 35 U/L (15-37); BICARBONATE 22.7 MEQ/L (21.0-32.0); BLOOD UREA NITROGEN 29 MG/DL (7-18); CALCIUM 9.7 MG/DL (8.5-10.1); CHLORIDE 108 MEQ/L (98-107); CREATININE 0.94 MG/DL (0.50-1.00); GLOMERULAR FILTRATION RATE 73 ML/MIN (>89); GLUCOSE,RANDOM 118 MG/DL (74-106); SODIUM (NA) 140 MEQ/L (136-145)
[2017-04-26 06:13] LABS: ALKALINE PHOSPHATASE 317 U/L (45-117); TOTAL BILIRUBIN ADULT 0.3 MG/DL (0.2-1.0); TOTAL PROTEIN 8.2 GM/DL (6.4-8.2)
[2017-04-26 06:19] LABS: ACETAMINOPHEN LESS THAN 2.0 MCG/ML (10.0-30.0)
[2017-04-26] MEDS ORDERED: NITROFURANTOIN MONOHYD MACROCR 100 MG CAP PO ONE (06:30)
--- NOTE | 2017-04-26 11:43 | PD ---
Physical Exam Exam Limitations: Altered Mental Status Narrative GENERAL: SKIN: Warm and dry. HEAD: Atraumatic. Normocephalic. EYES: Pupils equal and round. No scleral icterus. No injection or drainage. ENT: No nasal bleeding or discharge. Mucous membranes pink and moist. NECK: Trachea midline. No JVD. CARDIOVASCULAR: Regular rate and rhythm. RESPIRATORY: No accessory muscle use. Clear to auscultation. Breath sounds equal bilaterally. GASTROINTESTINAL: Abdomen soft, non-tender, nondistended. Hepatic and splenic margins not palpable. MUSCULOSKELETAL: Extremities without clubbing, cyanosis, or edema. No obvious deformities. NEUROLOGICAL: Awake and alert BUT PLEASANTLY CONFUSED. No obvious cranial nerve deficits. Motor grossly within normal limits. Five out of 5 muscle strength in the arms and legs. Normal speech. PSYCHIATRIC: Appropriate mood and affect; insight and judgment normal. Data Data Last Documented VS Vital Signs Date Time Temp Pulse Resp B/P (MAP) Pulse Ox O2 Delivery O2 Flow Rate FiO2 04/26/17 04:39 98.6 80 16 142/75 (97) 98 Orders Orders Complete Blood Count With Diff (04/26/17 04:41) Comprehensive Metabolic Panel (04/26/17 04:41) Thyroid Stimulating Hormone (04/26/17 04:41) Urinalysis - C+S If Indicated (04/26/17 04:41) Psych Screen (04/26/17 04:41) Drug Screen, Random Urine (04/26/17 04:41) Alcohol (Ethanol) (04/26/17 04:41) Salicylates (Aspirin) (04/26/17 04:41) Tylenol (Acetaminophen) (04/26/17 04:41) Acetaminophen (Tylenol) (04/26/17 04:45) Olanzapine Inj (Zyprexa Inj) (04/26/17 04:45) Urine Culture (04/26/17 05:20) Nitrofurantoin Monohyd Macrocr (Macrobid (04/26/17 06:30) Diet Regular Basic (04/26/17 Breakfast) Diet Regular Basic (04/26/17 Lunch) Labs Laboratory Tests Test 04/26/17 05:20 White Blood Count 13.4 TH/MM3 Red Blood Count 4.38 MIL/MM3 Hemoglobin 11.9 GM/DL Hematocrit 35.9 % Mean Corpuscular Volume 81.9 FL Mean Corpuscular Hemoglobin 27.2 PG Mean Corpuscular Hemoglobin Concent 33.2 % Red Cell Distribution Width 16.3 % Platelet Count 380 TH/MM3 Mean Platelet Volume 7.8 FL Neutrophils (%) (Auto) 82.5 % Lymphocytes (%) (Auto) 9.2 % Monocytes (%) (Auto) 7.4 % Eosinophils (%) (Auto) 0.3 % Basophils (%) (Auto) 0.6 % Neutrophils # (Auto) 11.1 TH/MM3 Lymphocytes # (Auto) 1.2 TH/MM3 Monocytes # (Auto) 1.0 TH/MM3 Eosinophils # (Auto) 0.0 TH/MM3 Basophils # (Auto) 0.1 TH/MM3 CBC Comment DIFF FINAL Differential Comment Urine Color YELLOW Urine Turbidity HAZY Urine pH 5.0 Urine Specific [place] 1.025 Urine Protein 30 mg/dL Urine Glucose (UA) NEG mg/dL Urine Ketones NEG mg/dL Urine Occult Blood NEG Urine Nitrite NEG Urine Bilirubin NEG Urine Urobilinogen LESS THAN 2.0 MG/DL Urine Leukocyte Esterase MOD Urine RBC 29 /hpf Urine WBC 21 /hpf Urine Transitional Epithelial Cells 1 /hpf Urine Bacteria OCC /hpf Microscopic Urinalysis Comment CATH-CULTURE IND Blood Urea Nitrogen 29 MG/DL Creatinine 0.94 MG/DL Random Glucose 118 MG/DL Total Protein 8.2 GM/DL Albumin 3.5 GM/DL Calcium Level 9.7 MG/DL Alkaline Phosphatase 317 U/L Aspartate Amino Transf (AST/SGOT) 35 U/L Alanine Aminotransferase (ALT/SGPT) 60 U/L Total Bilirubin 0.3 MG/DL Sodium Level 140 MEQ/L Potassium Level 4.0 MEQ/L Chloride Level 108 MEQ/L Carbon Dioxide Level 22.7 MEQ/L Anion Gap 9 MEQ/L Estimat Glomerular Filtration Rate 73 ML/MIN Thyroid Stimulating Hormone 3rd Gen 0.557 uIU/ML Salicylates Level LESS THAN 1.7 MG/DL Urine Opiates Screen NEG Acetaminophen Level LESS THAN 2.0 MCG/ML Urine Barbiturates Screen NEG Urine Amphetamines Screen NEG Urine Benzodiazepines Screen NEG Urine Cocaine Screen NEG Urine Cannabinoids Screen NEG Ethyl Alcohol Level LESS THAN 3 MG/DL [facility] Medical Record Reviewed: Yes Supervised Visit with DEBBIE: Yes Narrative Course DR SALAZAR DECLINED TO ADMIT PRIMARILY AND REQUESTS MEDICAL ADMISSION AND PSYCH WILL FOLLOW Physician Communication Physician Communication [facility] CALLED TO UPGRADE FROM [place] [facility] UNDER PSYCH TO UNDER MEDICINE WITH PSYCH FOLLOW Diagnosis Primary Impression: Medical clearance for psychiatric admission Additional Impressions: Urinary tract infection Qualified Codes: N39.0 - Urinary tract infection, site not specified Dementia Qualified Codes: F03.91 - Unspecified dementia with behavioral disturbance Admitting Information Admitting Physician Requests: Observation Condition: Stable Logan De Los Santos MD Apr 26, 2017 11:43
[2017-04-26] MEDS ORDERED: cefTRIAXone INJ 1,000 MG in SODIUM CHLORIDE 0.9% INJ 100 ML IV ONE (11:45)
[2017-04-26] MEDS ORDERED: SENNOSIDES 8.6 MG TAB PO PRN (12:15)
[2017-04-26] MEDS ORDERED: BISACODYL 10 MG SUPP RECTAL PRN (12:15)
[2017-04-26] MEDS ORDERED: LACTULOSE SYRUP 20 GM/30 ML CUP PO PRN (12:15)
[2017-04-26] MEDS ORDERED: NALOXONE HCL 0.4 MG/ML AMP IV PUSH PRN (12:15)
[2017-04-26] MEDS ORDERED: PROCHLORPERAZINE 25 MG SUPP RECTAL PRN (12:15)
[2017-04-26] MEDS ORDERED: SODIUM CHLORIDE 0.9% FLUSH 10 ML FLUSH IV FLUSH PRN (12:15)
[2017-04-26] MEDS ORDERED: MAGNESIUM HYDROXIDE SUSP 30 ML CUP PO PRN (12:15)
--- NOTE | 2017-04-26 12:24 | HHI.HP ---
HPI Service [facility] Primary Care Physician Matthew Singleton M.D. Admission Diagnosis CONFUSION,UTI Diagnoses: Chief Complaint: Confusion Travel History International Travel<30 Days: No Contact w/Intl Traveler <30 Da: No Traveled to Known Affected Are: No History of Present Illness 61-year-old female with past medical history of anxiety/depression/ psychiatric illness, hypertension, was brought to the emergency room by police for further evaluation. Patient with altered mental status and change from her baseline also per family. The patient is alert and oriented and knows her name, date of , location, the year. She is however with auditory and visual hallucinations as time. She denies having any fever or chills no nausea vomiting no diarrhea or constipation. Denies any urinary symptoms except says she has some burning with urination. She is found with UTI and started to biotics in the emergency room. Patient denies currently taking any medications. The patient is also noted wondering. She is answering questions appropriately. She is however talking on the invisible phone, having her fingers on one ear. Records also reviewed Review of Systems Except as stated in HPI: all other systems reviewed are Neg Past Family Social History Past Medical History Hypertension, depression/anxiety/psychiatric illness, GERD Liver mass? not specified not sure what rona of problems Past Surgical History Says she has some surgeries in the belly but doesn't know exactly what kind Liver biopsy Right total knee arthroplasty Partial gastrectomy 2/2 gastric ulcers Partial hysterectomy Parathyroidectomy, pituatary resection, vagotomy Allergies: Coded Allergies: diatrizoate meglumine (Unverified Allergy, Intermediate, EDEMA, 04/25/17) gadobenic acid (Unverified Allergy, Intermediate, EDEMA, 04/25/17) gadodiamide (Unverified Allergy, Intermediate, EDEMA, 04/25/17) gadoteridol (Unverified Allergy, Intermediate, EDEMA, 04/25/17) iodixanol (Unverified Allergy, Intermediate, EDEMA, 04/25/17) iohexol (Unverified Allergy, Intermediate, EDEMA, 04/25/17) tramadol (Unverified Allergy, Unknown, swelling, 04/25/17) alprazolam (Unverified Adverse Reaction, Severe, RINGING IN EARS, 04/25/17) amitriptyline (Unverified Adverse Reaction, Severe, PT STATES "KEEPS ME FROM URINATING", 04/25/17) aspirin (Unverified Adverse Reaction, Severe, RINGING EARS, 04/25/17) clonazepam (Unverified Adverse Reaction, Severe, RINGING IN EARS, 04/25/17) clorazepate dipotassium (Unverified Adverse Reaction, Severe, RINGING IN EARS, 04/25/17) cyclobenzaprine (Unverified Adverse Reaction, Severe, EARS RINGING, ) diazepam (Unverified Adverse Reaction, Severe, RINGING IN EARS, 04/25/17) lorazepam (Unverified Adverse Reaction, Severe, RINGING IN EARS, 04/25/17) midazolam (Unverified Adverse Reaction, Severe, RINGING IN EARS, 04/25/17) oxazepam (Unverified Adverse Reaction, Severe, RINGING IN EARS, 04/25/17) temazepam (Unverified Adverse Reaction, Severe, RINGING IN EARS, 04/25/17) Uncoded Allergies: mucinex (Adverse Reaction, Intermediate, 10/16/15) Family History Says her family is healthy Social History Denies alcohol use and illicit drug use or tobacco use. Physical Exam Vital Signs Vital Signs Date Time Temp Pulse Resp B/P (MAP) Pulse Ox O2 Delivery O2 Flow Rate FiO2 04/26/17 04:39 98.6 80 16 142/75 (97) 98 Physical Exam GENERAL: This is a 61-year-old female in [facility], well-nourished, well- developed patient, with visual and auditory hallucinations. SKIN: No rashes, ecchymoses or lesions. Cool and dry. HEAD: Atraumatic. Normocephalic. No temporal or scalp tenderness. EYES: Pupils equal round and reactive. Extraocular motions intact. No scleral icterus. No injection or drainage. ENT: Nose without bleeding, purulent drainage or septal hematoma. Throat without erythema, tonsillar hypertrophy or exudate. Uvula midline. Airway patent. NECK: Trachea midline. No JVD or lymphadenopathy. Supple, nontender, no meningeal signs. CARDIOVASCULAR: Regular rate and rhythm without murmurs, gallops, or rubs. RESPIRATORY: Clear to auscultation. Breath sounds equal bilaterally. No wheezes , rales, or rhonchi. GASTROINTESTINAL: Abdomen soft, non-tender, nondistended. No hepato-splenomegaly , or palpable masses. No guarding. MUSCULOSKELETAL: Extremities without clubbing, cyanosis, or edema. No joint tenderness, effusion, or edema noted. No calf tenderness. Negative Homans sign bilaterally. NEUROLOGICAL: Awake and alert. Cranial nerves II through XII intact. Motor and sensory grossly within normal limits. Five out of 5 muscle strength in all muscle groups. Normal speech. PSYCHIATRIC: Visual and auditory hallucinations Laboratory Laboratory Tests Test 04/26/17 05:20 White Blood Count 13.4 Red Blood Count 4.38 Hemoglobin 11.9 Hematocrit 35.9 Mean Corpuscular Volume 81.9 Mean Corpuscular Hemoglobin 27.2 Mean Corpuscular Hemoglobin Concent 33.2 Red Cell Distribution Width 16.3 Platelet Count 380 Mean Platelet Volume 7.8 Neutrophils (%) (Auto) 82.5 Lymphocytes (%) (Auto) 9.2 Monocytes (%) (Auto) 7.4 Eosinophils (%) (Auto) 0.3 Basophils (%) (Auto) 0.6 Neutrophils # (Auto) 11.1 Lymphocytes # (Auto) 1.2 Monocytes # (Auto) 1.0 Eosinophils # (Auto) 0.0 Basophils # (Auto) 0.1 CBC Comment DIFF FINAL Differential Comment Urine Color YELLOW Urine Turbidity HAZY Urine pH 5.0 Urine Specific [place] 1.025 Urine Protein 30 Urine Glucose (UA) NEG Urine Ketones NEG Urine Occult Blood NEG Urine Nitrite NEG Urine Bilirubin NEG Urine Urobilinogen LESS THAN 2.0 Urine Leukocyte Esterase MOD Urine RBC 29 Urine WBC 21 Urine Transitional Epithelial Cells 1 Urine Bacteria OCC Microscopic Urinalysis Comment CATH-CULTURE IND Blood Urea Nitrogen 29 Creatinine 0.94 Random Glucose 118 Total Protein 8.2 Albumin 3.5 Calcium Level 9.7 Alkaline Phosphatase 317 Aspartate Amino Transf (AST/SGOT) 35 Alanine Aminotransferase (ALT/SGPT) 60 Total Bilirubin 0.3 Sodium Level 140 Potassium Level 4.0 Chloride Level 108 Carbon Dioxide Level 22.7 Anion Gap 9 Estimat Glomerular Filtration Rate 73 Thyroid Stimulating Hormone 3rd Gen 0.557 Salicylates Level LESS THAN 1.7 Urine Opiates Screen NEG Acetaminophen Level LESS THAN 2.0 Urine Barbiturates Screen NEG Urine Amphetamines Screen NEG Urine Benzodiazepines Screen NEG Urine Cocaine Screen NEG Urine Cannabinoids Screen NEG Ethyl Alcohol Level LESS THAN 3 Date/Time Source Procedure Growth Status 04/26/17 05:20 Urine Catheterized Urine Urine Culture Pending Worksheet Result Diagram: 04/26/1751904/26/17519 Caprini VTE Risk Assessment Caprini VTE Risk Assessment: Mod/High Risk (score >= 2) Caprini Risk Assessment Model Point Value = 1 Point Value = 2 Point Value = 3 Point Value = 5 Age 41-60 Minor surgery BMI > 25 kg/m2 Swollen legs Varicose veins or History of unexplained or recurrent spontaneous Oral contraceptives or hormone replacement Sepsis (< 1 month) Serious lung disease, including pneumonia (< 1 month) Abnormal pulmonary function Acute myocardial infarction Congestive heart failure (< 1 month) History of inflammatory bowel disease Medical patient at bed rest Age 61-74 Arthroscopic surgery Major open surgery (> 45 min) Laparoscopic surgery (> 45 min) Malignancy Confined to bed (> 72 hours) Immobilizing plaster cast Central venous access Age >= 75 History of VTE Family history of VTE Factor V Leiden Prothrombin [id number] Lupus anticoagulant Anticardiolipin antibodies Elevated serum homocysteine Heparin-induced thrombocytopenia Other congenital or acquired thrombophilia Stroke (< 1 month) Elective arthroplasty Hip, pelvis, or leg fracture Acute spinal cord injury (< 1 month) Prophylaxis Regimen Total Risk Factor Score Risk Level Prophylaxis Regimen 0-1 Low Early ambulation 2 Moderate Order ONE of the following: *Sequential Compression Device (SCD) *Heparin 5000 units SQ BID 3-4 Higher Order ONE of the following medications: *Heparin 5000 units SQ TID *Enoxaparin/Lovenox 40 mg SQ daily (WT < 150 kg, CrCl > 30 mL/min) *Enoxaparin/Lovenox 30 mg SQ daily (WT < 150 kg, CrCl > 10-29 mL/min) *Enoxaparin/Lovenox 30 mg SQ BID (WT < 150 kg, CrCl > 30 mL/min) AND/OR *Sequential Compression Device (SCD) 5 or more Highest Order ONE of the following medications: *Heparin 5000 units SQ TID (Preferred with Epidurals) *Enoxaparin/Lovenox 40 mg SQ daily (WT < 150 kg, CrCl > 30 mL/min) *Enoxaparin/Lovenox 30 mg SQ daily (WT < 150 kg, CrCl > 10-29 mL/min) *Enoxaparin/Lovenox 30 mg SQ BID (WT < 150 kg, CrCl > 30 mL/min) AND *Sequential Compression Device (SCD) Assessment and Plan Assessment and Plan 61-year-old female with past medical history of hypertension, psychiatric illness Acute encephalopathy, possible 2/2 UTI or poss psychiatric in nature Visual and auditory hallucinations UTI. Leukocytosis, but no other signs of sepsis Hypertension Urine cultures pending Start Rocephin IV antibiotic, monitor urine cultures Consults psychiatry for further evaluation Restart home medications as appropriate DVT prophylaxis SCD/teds GI prophylaxis with PPIs Records also reviewed Discussed Condition With Patient, nurse, ED physician Arely Velasquez MD Apr 26, 2017 12:24
[2017-04-26] MEDS ORDERED: PILL SPLITTER OTHER PRN (13:00)
[2017-04-26] MEDS ORDERED: ACETAMINOPHEN/HYDROcodone 325 MG/5 MG TAB PO PRN (13:00)
[2017-04-26] MEDS: SODIUM CHLOR 0.9% 1000 ML INJ 1,000 ML IV SCH ×4 (13:00→22:13)
[2017-04-26 13:02] VITALS: BP 121/88; PULSE 97; RESP 16; TEMP 98.5; O2SAT 96
--- NOTE | 2017-04-26 13:42 | RADRPT ---
EXAM DATE/TIME: 04/26/2017 13:24 [facility] COMPARISON: No previous studies available for comparison. INDICATIONS : Altered mental status RADIATION DOSE: 56.35 CTDIvol (mGy) MEDICAL HISTORY : Cardiovascular disease. Hypertension. Diabetes mellitus type 1. SURGICAL HISTORY : Hysterectomy. ENCOUNTER: Initial ACUITY: 1 day PAIN SCALE: Non-responsive LOCATION: cranial TECHNIQUE: Multiple contiguous axial images were obtained of the head. Using automated exposure control and adj ustment of the mA and/or kV according to patient size, radiation dose was kept as low as reasonably a chievable to obtain optimal diagnostic quality images. DICOM format image data is available electro nically for review and comparison. FINDINGS: CEREBRUM: Small chronic lacunar infarction involving the anterior limb of the internal capsule on the right. Th e ventricles are normal for age. No evidence of midline shift, mass lesion, hemorrhage or acute infa rction. No extra-axial fluid collections are seen. POSTERIOR FOSSA: The cerebellum and brainstem are intact. The 4th ventricle is midline. The cerebellopontine angle i s unremarkable. EXTRACRANIAL: The visualized portion of the orbits is intact. Chronic mucosal thickening opacifying the left maxill jessica sinus with some calcifications. Remaining paranasal sinuses are clear. SKULL: The calvaria is intact. No evidence of skull fracture. CONCLUSION: 1. No acute intracranial abnormality. Edwin Gates Jr., MD on April 26, 2017 at 13:38 Board Certified Radiologist. This report was verified electronically.
[2017-04-26 14:45] VITALS: BP 173/99; PULSE 82; RESP 14; O2SAT 97
[2017-04-26] MEDS: ENOXAPARIN SODIUM 40 MG/0.4 ML SYRINGE SQ SCH (16:53)
[2017-04-26] MEDS: ALPRAZolam 1 MG TAB PO PRN (17:54)
[2017-04-26] MEDS ORDERED: HALOPERIDOL LACTATE 5 MG/ML AMP IM PRN (18:30)
[2017-04-26 19:24] VITALS: BP 168/80; PULSE 77; RESP 20; TEMP 98.4; O2SAT 96
[2017-04-26 20:23] VITALS: BP 115/71; PULSE 87; RESP 18; TEMP 98; O2SAT 95
[2017-04-26] MEDS: SODIUM CHLORIDE 0.9% FLUSH 10 ML FLUSH IV FLUSH SCH (21:00)
[2017-04-26] MEDS: DOCUSATE SODIUM 50 MG/SENNA 8.6 MG TAB PO SCH (21:00)
[2017-04-27] VITALS (7 sets, daily range): BP systolic 116–142; BP diastolic 67–91; PULSE 82–118; RESP 18; TEMP 98–101.2; O2SAT 96–99
[2017-04-27 07:35] LABS: AUTOMATED NEUTROPHIL # 6.1 TH/MM3 (1.8-7.7); BASOPHIL # 0.1 TH/MM3 (0-0.2); BASOPHIL % 1.3 % (0.0-2.0); EOSINOPHIL # 0.1 TH/MM3 (0-0.4); EOSINOPHIL % 1.7 % (0.0-4.0); HEMATOCRIT 33.7 % (35.0-46.0); HEMOGLOBIN 10.9 GM/DL (11.6-15.3); LYMPH % 13.3 % (9.0-44.0); LYMPHOCYTE # 1.1 TH/MM3 (1.0-4.8); MEAN CELL VOLUME 83.3 FL (80.0-100.0); MEAN CORPUSCULAR HGB CONC 32.4 % (32.0-36.0); MEAN PLATELET VOLUME 7.9 FL (7.0-11.0); MONO % 7.8 % (0.0-8.0); MONOCYTE # 0.6 TH/MM3 (0-0.9); NEUT % 75.9 % (16.0-70.0); PLATELET COUNT 408 TH/MM3 (150-450); RED BLOOD COUNT 4.05 MIL/MM3 (4.00-5.30); RED CELL DISTRIBUTION WIDTH 16.6 % (11.6-17.2)
[2017-04-27 07:51] LABS: BICARBONATE 26.2 MEQ/L (21.0-32.0); CALCIUM 9.4 MG/DL (8.5-10.1); CREATININE 0.88 MG/DL (0.50-1.00)
[2017-04-27] MEDS ORDERED: NON-FORMULARY DRUG (Lisinopril-Hctz 1 TAB) PO SCH (09:00)
[2017-04-27] MEDS: HYDROCHLOROTHIAZIDE 25 MG TAB PO SCH (10:23)
[2017-04-27] MEDS: PANTOPRAZOLE SOD 40 MG DELAYED RELEASE TAB PO SCH (10:24)
[2017-04-27] MEDS: LISINOPRIL 10 MG TAB PO SCH (10:24)
[2017-04-27] MEDS: DOCUSATE SODIUM 50 MG/SENNA 8.6 MG TAB PO SCH ×2 (10:25→21:00)
[2017-04-27] MEDS: SODIUM CHLORIDE 0.9% FLUSH 10 ML FLUSH IV FLUSH SCH ×2 (10:25→21:00)
--- NOTE | 2017-04-27 10:54 | HHI.PR ---
Subjective Remarks Follow-up encephalopathy. Episodes of confusion and hallucination. Patient does not want to be on benzodiazepines and narcotics if possible. She has Xanax , Ambien, hydrocodone and fentanyl but UDS negative According to daughter, patient has liver cancer with lung metastases status post embolization at [facility]. Discussed with nursing staff Objective Vitals Vital Signs Date Time Temp Pulse Resp B/P (MAP) Pulse Ox O2 Delivery O2 Flow Rate FiO2 04/27/17 08:09 98.6 83 18 142/91 (108) 96 04/27/17 03:42 98.0 84 18 128/78 (95) 98 04/27/17 00:00 98.4 82 18 116/67 (83) 98 04/26/17 20:23 98.0 87 18 115/71 (86) 95 04/26/17 19:24 98.4 77 20 168/80 (109) 96 04/26/17 14:45 82 14 173/99 (123) 97 Room Air 04/26/17 13:02 98.5 97 16 121/88 (99) 96 Room Air Result Diagram: 04/27/17 0705 04/27/17 0705 Imaging Last Impressions Head CT 04/26/17 0000 Signed Impressions: Service Date/Time: Wednesday, April 26, 2017 13:24 - CONCLUSION: 1. No acute intracranial abnormality. Edwin Gates Jr., MD Objective Remarks GENERAL: This is a 61-year-old female in [facility], well-nourished, well- developed patient, with visual and auditory hallucinations. SKIN: No rashes, ecchymoses or lesions. Cool and dry. CARDIOVASCULAR: Regular rate and rhythm without murmurs, gallops, or rubs. RESPIRATORY: Clear to auscultation. Breath sounds equal bilaterally. No wheezes , rales, or rhonchi. GASTROINTESTINAL: Abdomen soft, non-tender, nondistended. No guarding. MUSCULOSKELETAL: Extremities without clubbing, cyanosis, or edema. No joint tenderness, effusion, or edema noted. No calf tenderness. Negative Homans sign bilaterally. NEUROLOGICAL: Awake and alert. Cranial nerves II through XII intact. Motor and sensory grossly within normal limits. Five out of 5 muscle strength in all muscle groups. Normal speech. PSYCHIATRIC: Visual and auditory hallucinations Procedures none A/P Problem List: (1) Encephalopathy acute ICD Code: G93.40 - Encephalopathy, unspecified Assessment and Plan 61-year-old female with past medical history of hypertension, psychiatric illness Acute encephalopathy, possible 2/2 UTI/sepsis vs psych vs WD vs Sz vs mets. Neurochecks. Seizure precautions. Obtain EEG, brain MRI and follow-up psychiatric consultation. Discontinue restraints if possible Visual and auditory hallucinations UTI with sepsis. Continue IV Rocephin and monitor cultures Hypertension. Stable Liver cancer with lung metastases hx MEN. Status post embolization. Op f/u with oncology DVT prophylaxis SCD/teds . Lovenox GI prophylaxis with PPIs Discharge Planning Needs further hospitalization because of ongoing encephalopathy Mamadou Marsh MD Apr 27, 2017 10:54
[2017-04-27] MEDS ORDERED: cefTRIAXone INJ 1,000 MG in SODIUM CHLORIDE 0.9% INJ 100 ML IV SCH (13:00)
--- NOTE | 2017-04-27 17:13 | PD.PSY.CON ---
Provisional Diagnosis Admission Date Apr 26, 2017 at 12:13 [place] I. Delirium f05 History of Present Illness Service Psychiatry Consult Requested By Attending Pedro Reason for Consult Assessment Primary Care Physician Matthew Singleton M.D. HPI A shunt is a 61-year-old Afro-[place] female as to assess because of confusion. This is patient's second visit here within 2 days she was diagnosed with urinary tract infection. Has a history of some multiple antibiotics. Appears with some confusion over the past night however at the present time patient is lying quietly in her bed on F pod patient seen in her room with nurse temperature. Patient is alert oriented pleasant Afro-[place] female she is calm and cooperative. She denies any prior psychiatric contact hospitalization her psychotropic medication. She denies any alcohol or substance use of any kind. She denies any suicidality homicidality voices or visions. Patient is well oriented, she notes she is at [facility], 2017, April, and Saturday. Patient states she lives independently has 2 adult children locally that she has a good relationship with. She is aware that she has a urinary tract infection she appears to been quite cooperative with the staff. At this time it appears the patient's mental status changes may have been secondary to the urinary tract infection with a delirium process. That is now resolving. At this time would recommend continue workup with a urinary tract infection and the medical service, I would refrain from any benzodiazepines. I feel she needs no other psychotropics at this time. Is okay by psych for patient to be discharged appears no untoward behaviors. Thanks for consult I will follow up on an as-needed basis Review of Systems Constitutional: DENIES: Diaphoretic episodes, Fatigue, Fever, Weight gain, Weight loss, Chills, Dizziness, Change in appetite, Night Sweats Endocrine: DENIES: Abnorml menstrual pattern, Heat/cold intolerance, Polydipsia , Polyuria, Polyphagia Ears, nose, mouth, throat: DENIES: Tinnitus, Hearing loss, Vertigo, Nasal discharge, Oral lesions, Throat pain, Hoarseness, Ear Pain, Running Nose, Epistaxis, Sinus Pain, Toothache, Odynophagia Respiratory: DENIES: Apneas, Cough, Snoring, Wheezing, Hemoptysis, Sputum production, Shortness of breath Cardiovascular: DENIES: Chest pain, Palpitations, Syncope, Dyspnea on Exertion , PND, Lower Extremity Edema, Orthopnea, Claudication Gastrointestinal: DENIES: Abdominal pain, Black stools, Bloody stools, Constipation, Diarrhea, Nausea, Vomiting, Difficulty Swallowing, Anorexia Genitourinary: DENIES: Abnormal vaginal bleeding, Dysmenorrhea, Dyspareunia, Sexual dysfunction, Urinary frequency, Urinary incontinence, Urgency, Hematuria , Dysuria, Nocturia, Vaginal discharge Musculoskeletal: DENIES: Joint pain, Muscle aches, Stiffness, Joint Swelling, Back pain, Neck pain Integumentary: DENIES: Abnormal pigmentation, Pruritus, Rash, Nail changes, Breast masses, Breast skin changes, Nipple discharge Hematologic/lymphatic: DENIES: Bruising, Lymphadenopathy Immunologic/allergic: DENIES: Eczema, Urticaria Neurologic: DENIES: Abnormal gait, Headache, Localized weakness, Paresthesias, Seizures, Speech Problems, Tremor, Poor Balance Psychiatric: DENIES: Anxiety, Confusion, Mood changes, Depression, Hallucinations, Agitation, Suicidal Ideation, Homicidal Ideation, Delusions Past Family Social History Coded Allergies: diatrizoate meglumine (Unverified Allergy, Intermediate, EDEMA, 04/25/17) gadobenic acid (Unverified Allergy, Intermediate, EDEMA, 04/25/17) gadodiamide (Unverified Allergy, Intermediate, EDEMA, 04/25/17) gadoteridol (Unverified Allergy, Intermediate, EDEMA, 04/25/17) iodixanol (Unverified Allergy, Intermediate, EDEMA, 04/25/17) iohexol (Unverified Allergy, Intermediate, EDEMA, 04/25/17) tramadol (Unverified Allergy, Unknown, swelling, 04/25/17) alprazolam (Unverified Adverse Reaction, Severe, RINGING IN EARS, 04/25/17) amitriptyline (Unverified Adverse Reaction, Severe, PT STATES "KEEPS ME FROM URINATING", 04/25/17) aspirin (Unverified Adverse Reaction, Severe, RINGING EARS, 04/25/17) clonazepam (Unverified Adverse Reaction, Severe, RINGING IN EARS, 04/25/17) clorazepate dipotassium (Unverified Adverse Reaction, Severe, RINGING IN EARS, 04/25/17) cyclobenzaprine (Unverified Adverse Reaction, Severe, EARS RINGING, ) diazepam (Unverified Adverse Reaction, Severe, RINGING IN EARS, 04/25/17) lorazepam (Unverified Adverse Reaction, Severe, RINGING IN EARS, 04/25/17) midazolam (Unverified Adverse Reaction, Severe, RINGING IN EARS, 04/25/17) oxazepam (Unverified Adverse Reaction, Severe, RINGING IN EARS, 04/25/17) temazepam (Unverified Adverse Reaction, Severe, RINGING IN EARS, 04/25/17) Uncoded Allergies: mucinex (Adverse Reaction, Intermediate, 10/16/15) Reported Medications Fentanyl Patch 72 HR (Fentanyl Patch 72 HR) 50 Mcg/Hr Patch, 50 MCG T-DERMAL Q72H for Pain Management, #10 PATCH 0 Refills Remove old patch when new one placed. 12/02/16 Alprazolam (Xanax) 1 Mg Tab, 1 MG PO Q6H Y for ANXIETY, TAB 0 Refills 10/09/16 Zolpidem (Ambien) 10 Mg Tab, 10 MG PO HS Y for INSOMNIA, TAB 0 Refills 10/09/[address] (Nexium) 40 Mg Capdr, 40 MG PO DAILY, CAP 0 Refills 10/09/16 Hydrocodone-Acetaminophen ([place]) 5-325 mg Tab, 1 TAB PO Q6H Y for PAIN, TAB 0 Refills 10/09/16 Lisinopril-Hctz (Lisinopril-Hctz) 10-12.5 Mg Tab, 1 TAB PO DAILY for Blood Pressure Management, #30 TAB 0 Refills 10/09/16 Current Medications Medications (Trade) Dose Ordered Sig/Hipolito Route Start Time Stop Time Status Last Admin (NS Flush) 2 ml UNSCH PRN IV FLUSH 04/26/17 12:15 (NS Flush) 2 ml BID IV FLUSH 04/26/17 21:00 (Tylenol) 650 mg Q4H PRN PO 04/26/17 12:15 (Compazine Supp) 25 mg Q12H PRN RECTAL 04/26/17 12:15 (Lovenox Inj) 40 mg Q24H SQ 04/26/17 14:00 04/26/17 16:53 (Narcan Inj) 0.4 mg UNSCH PRN IV PUSH 04/26/17 12:15 (Sydni-Colace) 1 tab BID PO 04/26/17 21:00 (Milk Of Magnesia Liq) 30 ml Q12H PRN PO 04/26/17 12:15 (Senokot) 17.2 mg Q12H PRN PO 04/26/17 12:15 (Dulcolax Supp) 10 mg DAILY PRN RECTAL 04/26/17 12:15 (Lactulose Liq) 30 ml DAILY PRN PO 04/26/17 12:15 Ceftriaxone Sodium 1000 mg/ Sodium Chloride 100 ml @ 200 mls/hr Q24H IV 04/27/17 13:00 04/27/17 14:23 (Xanax) 1 mg Q6H PRN PO 04/26/17 13:00 04/26/17 17:54 (Protonix) 40 mg DAILY PO 04/27/17 09:00 04/27/17 10:24 (Prinivil) 10 mg DAILY PO 04/27/17 09:00 04/27/17 10:24 (Hydrodiuril) 12.5 mg DAILY PO 04/27/17 09:00 04/27/17 10:23 (Pill Splitter) 1 ea UNSCH PRN OTHER 04/26/17 13:00 Sodium Chloride 1,000 ml @ 84 mls/hr [id number] IV 04/27/17 14:30 (Imodium) 2 mg Q6H PRN PO 04/27/17 16:30 Family Psych History Patient denies Social History Patient lives independently has 2 supportive adult children Patient's Strengths (min. 2) Patient verbal cooperative calm and pleasant Physical Exam Please see MedSurg assessments Vital Signs Vital Signs Date Time Temp Pulse Resp B/P (MAP) Pulse Ox O2 Delivery O2 Flow Rate FiO2 04/27/17 15:37 98.2 109 18 122/73 (89) 97 04/26/17 14:45 Room Air Lab Results Test 04/27/17 07:05 White Blood Count 8.0 TH/MM3 Red Blood Count 4.05 MIL/MM3 Hemoglobin 10.9 GM/DL Hematocrit 33.7 % Mean Corpuscular Volume 83.3 FL Mean Corpuscular Hemoglobin 27.0 PG Mean Corpuscular Hemoglobin Concent 32.4 % Red Cell Distribution Width 16.6 % Platelet Count 408 TH/MM3 Mean Platelet Volume 7.9 FL Neutrophils (%) (Auto) 75.9 % Lymphocytes (%) (Auto) 13.3 % Monocytes (%) (Auto) 7.8 % Eosinophils (%) (Auto) 1.7 % Basophils (%) (Auto) 1.3 % Neutrophils # (Auto) 6.1 TH/MM3 Lymphocytes # (Auto) 1.1 TH/MM3 Monocytes # (Auto) 0.6 TH/MM3 Eosinophils # (Auto) 0.1 TH/MM3 Basophils # (Auto) 0.1 TH/MM3 CBC Comment DIFF FINAL Differential Comment Blood Urea Nitrogen 25 MG/DL Creatinine 0.88 MG/DL Random Glucose 109 MG/DL Calcium Level 9.4 MG/DL Sodium Level 146 MEQ/L Potassium Level 4.0 MEQ/L Chloride Level 113 MEQ/L Carbon Dioxide Level 26.2 MEQ/L Anion Gap 7 MEQ/L Estimat Glomerular Filtration Rate 79 ML/MIN Date/Time Source Procedure Growth Status 04/26/17 05:20 Urine Catheterized Urine Urine Culture - Preliminary IMMATURE GROWTH - REINCUBATE Resulted Mental Status Examination Appearance: Appropriate Consciousness: Alert Orientation: x4 Motor Activity: Other (patient laying comfortably in bed) Speech: Unremarkable Language: Adequate Fund of Knowledge: Adequate Attention and Concentration: Adequate Memory: Unremarkable Mood: Other (euthymic) Affect: Other (the drainage intensity) Thought Process & Associations: Intact Thought Content: Appropriate Hallucination Type: None Delusion Type: None Suicidal Ideation: No Suicidal Plan: No Suicidal Intention: No Homicidal Ideation: No Homicidal Plan: No Homicidal Intention: No Insight: Adequate Judgment: Adequate Assessment & Plan Problem List: (1) Delirium due to another medical condition ICD Codes: F05 - Delirium due to known physiological condition Assessment & Plan Estimated LOS: days this time I see no specific psychiatric diagnosis except delirium. This appears to be resolving. Would recommend continuing her medical workup. Though if everything remains stable as okay by psych for discharge when medically clear and stable. No recommendation for medication by me thanks for consult will follow-up on an as-needed basis Discharge Planning See above Request HC Surrog/Guard Advoc?: Isrrael Norman MD Apr 27, 2017 17:13
[2017-04-27] MEDS: SODIUM CHLOR 0.45% 1000 ML INJ 1,000 ML IV SCH (18:14)
[2017-04-27] MEDS: ENOXAPARIN SODIUM 40 MG/0.4 ML SYRINGE SQ SCH (18:14)
[2017-04-27] MEDS: ACETAMINOPHEN 325 MG TAB PO PRN (20:27)
--- NOTE | 2017-04-27 20:45 | RADRPT ---
EXAM DATE/TIME: 04/27/2017 20:31 [facility] COMPARISON: CHEST SINGLE AP, October 16, 2015, 20:05. INDICATIONS : Tachycardia. Evaluate for pneumonia. MEDICAL HISTORY : Hypertension. SURGICAL HISTORY : None. ENCOUNTER: Initial ACUITY: 1 day PAIN SCORE: 0/10 LOCATION: Bilateral chest FINDINGS: Bibasilar scarring again noted. On the right, there is suspected superimposed acute infiltrate in the medial segment of the middle lobe. No pleural effusion. No pneumothorax. Heart size stable, within normal limits. CONCLUSION: 1. Acute right base pneumonia, probably in the medial segment of the right middle lobe. Followup 2 vi ew chest x-ray recommended in 3-6 weeks to confirm resolution. 2. Chronic bibasilar scarring. Isrrael Harvey MD on April 27, 2017 at 20:40 Board Certified Radiologist. This report was verified electronically.
[2017-04-27] MEDS ORDERED: ZOLPIDEM TARTRATE 10 MG TAB PO PRN (21:00)
[2017-04-28] MEDS: ALPRAZolam 1 MG TAB PO PRN ×2 (02:18→08:41)
[2017-04-28] MEDS: SODIUM CHLOR 0.45% 1000 ML INJ 1,000 ML IV SCH ×2 (02:25→19:39)
[2017-04-28 07:10] LABS: AUTOMATED NEUTROPHIL # 5.4 TH/MM3 (1.8-7.7); BASOPHIL # 0.1 TH/MM3 (0-0.2); BASOPHIL % 1.1 % (0.0-2.0); EOSINOPHIL # 0.1 TH/MM3 (0-0.4); EOSINOPHIL % 1.5 % (0.0-4.0); HEMATOCRIT 35.6 % (35.0-46.0); HEMOGLOBIN 11.7 GM/DL (11.6-15.3); LYMPH % 17.1 % (9.0-44.0); LYMPHOCYTE # 1.3 TH/MM3 (1.0-4.8); MEAN CELL VOLUME 83.5 FL (80.0-100.0); MEAN CORPUSCULAR HEMOGLOBIN 27.4 PG (27.0-34.0); MEAN CORPUSCULAR HGB CONC 32.9 % (32.0-36.0); MEAN PLATELET VOLUME 7.8 FL (7.0-11.0); MONO % 6.8 % (0.0-8.0); MONOCYTE # 0.5 TH/MM3 (0-0.9); NEUT % 73.5 % (16.0-70.0); PLATELET COUNT 395 TH/MM3 (150-450); RED BLOOD COUNT 4.26 MIL/MM3 (4.00-5.30); RED CELL DISTRIBUTION WIDTH 16.7 % (11.6-17.2); WHITE BLOOD COUNT 7.4 TH/MM3 (4.0-11.0)
[2017-04-28] MEDS ORDERED: GADODIAMIDE PF 287 MG/ML 20 ML VIAL (for RAD MRI) IV PUSH ONE (07:12)
[2017-04-28 07:15] LABS: CALCIUM 9.2 MG/DL (8.5-10.1); CREATININE 0.93 MG/DL (0.50-1.00); MAGNESIUM 2.3 MG/DL (1.5-2.5)
[2017-04-28] MEDS ORDERED: RESP: ALBUTEROL 2.5 MG/IPRATROPIUM 0.5 MG NEB (PRN) INH (07:30)
[2017-04-28] MEDS ORDERED: POTASSIUM CHLORIDE 20 MEQ CONTROLLED RELEASE TAB PO ONE (08:00)
[2017-04-28 08:35] VITALS: BP 136/63; PULSE 80; RESP 20; TEMP 98.2; O2SAT 96
[2017-04-28] MEDS: HYDROCHLOROTHIAZIDE 25 MG TAB PO SCH (08:40)
[2017-04-28] MEDS: LISINOPRIL 10 MG TAB PO SCH (08:40)
[2017-04-28] MEDS: LOPERAMIDE HCL 2 MG CAP PO PRN ×2 (08:41→22:10)
[2017-04-28] MEDS: PANTOPRAZOLE SOD 40 MG DELAYED RELEASE TAB PO SCH (08:41)
[2017-04-28] MEDS: DOCUSATE SODIUM 50 MG/SENNA 8.6 MG TAB PO SCH ×2 (08:42→22:11)
[2017-04-28] MEDS: SODIUM CHLORIDE 0.9% FLUSH 10 ML FLUSH IV FLUSH SCH ×2 (08:42→22:09)
--- NOTE | 2017-04-28 10:11 | RADRPT ---
EXAM DATE/TIME: 04/28/2017 09:27 [place] COMPARISON: CT BRAIN W/O CONTRAST, April 26, 2017, 13:24. INDICATIONS : Metastatic disease. CONTRAST: 16 cc Omniscan (gadodiamide) IV MEDICAL HISTORY : Hypertension. Carcinoma, hepatocellular. Gastroesophageal reflux disease. DMII SURGICAL HISTORY : Hysterectomy. Tonsillectomy. Total knee replacement, right. Partial gastrectomy,parathyroidectomy,pit uitary resection, vagotomy. ENCOUNTER: Initial ACUITY: 3 day PAIN SCORE: 0/10 LOCATION: cranial TECHNIQUE: Multiplanar, multisequence MRI of the brain was performed both prior to and following the administrat ion of paramagnetic contrast. FINDINGS: CEREBRUM: The ventricles are normal for age. No evidence of midline shift, mass lesion, hemorrhage or acute in farction. No extraaxial fluid collections are seen. The pituitary gland and suprasellar cistern are normal in configuration. WHITE MATTER: No significant signal abnormalities are seen in the white matter. POSTERIOR FOSSA: The cerebellum and brainstem are intact. The 4th ventricle is midline. The cerebellopontine angle is unremarkable. The cerebellar tonsils are normal in position. DIFFUSION IMAGING: No focal areas of restricted diffusion are seen. No evidence of acute infarction. EXTRACRANIAL: The visualized portions of the orbits are normal. There is inspissated partially calcified mucus iden tified within the left maxillary sinus. The left maxillary sinuses are smaller than the right. POST-CONTRAST: There is rim enhancement involving the left maxillary sinus mucosa. No evidence of abnormal enhanceme nt within the brain to suggest metastatic disease.. CONCLUSION: Chronic inspissated mucus identified within the left maxillary sinus with mild mucosal thickening and enhancement within the left maxillary sinus. No evidence of metastatic disease within the brain. Arleth Barnes MD on April 28, 2017 at 10:05 Board Certified Radiologist. This report was verified electronically.
--- NOTE | 2017-04-28 10:35 | HHI.PR ---
Subjective Remarks Follow-up pneumonia. Patient spike a temperature last night MAXIMUM TEMPERATURE of 101. Chest x-ray with acute pneumonia. Denies cough and shortness of breath. Discussed with nursing staff Objective Vitals Vital Signs Date Time Temp Pulse Resp B/P (MAP) Pulse Ox O2 Delivery O2 Flow Rate FiO2 04/28/17 08:35 98.2 80 20 136/63 (87) 96 04/27/17 23:39 98.1 101 18 128/78 (95) 98 04/27/17 19:57 101.2 118 18 124/81 (95) 98 04/27/17 15:37 98.2 109 18 122/73 (89) 97 04/27/17 12:57 98.5 99 18 140/74 (96) 99 I/O 04/27/17 04/27/17 04/27/17 04/28/17 04/28/17 04/28/17 07:00 15:00 23:00 07:00 15:00 23:00 Output Total 400 ml Balance -400 ml Output Stool Total 400 ml # Voids 3 # Bowel Movements 1 Result Diagram: 04/28/17 0540 04/28/17 0540 Imaging Last Impressions Brain MRI 04/28/17 0000 Signed Impressions: Service Date/Time: Friday, April 28, 2017 09:27 - CONCLUSION: Chronic inspissated mucus identified within the left maxillary sinus with mild mucosal thickening and enhancement within the left maxillary sinus. No evidence of metastatic disease within the brain. Arleth Barnes MD Chest X-Ray 04/27/17 0000 Signed Impressions: Service Date/Time: Thursday, April 27, 2017 20:31 - CONCLUSION: 1. Acute right base pneumonia, probably in the medial segment of the right middle lobe. Followup 2 view chest x-ray recommended in 3-6 weeks to confirm resolution. 2. Chronic bibasilar scarring. Isrrael Harvey MD Head CT 04/26/17 0000 Signed Impressions: Service Date/Time: Wednesday, April 26, 2017 13:24 - CONCLUSION: 1. No acute intracranial abnormality. Edwin Gates Jr., MD Objective Remarks GENERAL: This is a 61-year-old female in [facility], well-nourished, well- developed patient, without visual and auditory hallucinations. SKIN: No rashes, ecchymoses or lesions. Cool and dry. CARDIOVASCULAR: Regular rate and rhythm without murmurs, gallops, or rubs. RESPIRATORY: Equal breath sounds. Crackles right lung GASTROINTESTINAL: Abdomen soft, non-tender, nondistended. No guarding. MUSCULOSKELETAL: Extremities without clubbing, cyanosis, or edema. No joint tenderness, effusion, or edema noted. No calf tenderness. Negative Homans sign bilaterally. NEUROLOGICAL: Awake and alert. Cranial nerves II through XII intact. Motor and sensory grossly within normal limits. Five out of 5 muscle strength in all muscle groups. Normal speech. Procedures none A/P Problem List: (1) Encephalopathy acute ICD Code: G93.40 - Encephalopathy, unspecified Assessment and Plan 61-year-old female with past medical history of hypertension, psychiatric illness Acute encephalopathy, likely 2/2 pneumonia/sepsis. Improving. Neurochecks. Seizure precautions. Follow-up EEG. Avoid benzodiazepines and narcotics Visual and auditory hallucinations. Resolved Hospital-acquired pneumonia with sepsis. Check lactic acid. Start cefepime and Zithromax and monitor cultures. Urine culture with contaminants Hypertension. Stable Liver cancer with lung metastases hx MEN. Status post embolization. Op f/u with oncology DVT prophylaxis SCD/teds . Lovenox GI prophylaxis with PPIs Discharge Planning Needs further hospitalization because of sepsis/pneumonia on IV antibiotics Mamadou Marsh MD Apr 28, 2017 10:35
[2017-04-28] MEDS: AZITHROMYCIN INJ 500 MG in SODIUM CHLOR 0.9% 250 ML INJ 250 ML IV SCH (10:45)
[2017-04-28 12:41] VITALS: BP 128/68; PULSE 78; RESP 20; TEMP 98.2; O2SAT 96
[2017-04-28] MEDS: CEFEPIME INJ 2,000 MG in SODIUM CHLORIDE 0.9% INJ 100 ML IV SCH ×2 (14:06→17:40)
[2017-04-28 17:12] VITALS: BP 132/83; PULSE 55; RESP 20; TEMP 97.9; O2SAT 97
[2017-04-28] MEDS: ENOXAPARIN SODIUM 40 MG/0.4 ML SYRINGE SQ SCH (17:42)
[2017-04-28] MEDS: ACETAMINOPHEN 325 MG TAB PO PRN ×2 (17:42→22:11)
--- NOTE | 2017-04-28 20:34 | MG ---
cc: MARCOS CHAPA M.D. Lab No: Date: 04/28/2017 Age: Sex: F Race: REQUESTING PHYSICIAN Dr. Marsh INTRODUCTION An EEG was obtained on this 61-year-old patient, awake and asleep. There is history of confusion and wandering and dementia. DESCRIPTION This EEG is showing mid amplitude beta 10 per second alpha rhythms posteriorly. There are beta rhythms frontally. There is some theta activity centrally. The slower rhythms are related to drowsiness. There are delta rhythms later on and there are some sleepy spindles and K complexes. There are some sharp contoured waves but no paroxysmal discharges. Photic stimulation showed no change. INTERPRETATION Normal awake and asleep EEG. Marcos Chapa MD OFC/KK /8:07 PM /8:29 PM
[2017-04-28 21:16] VITALS: BP 123/87; PULSE 93; RESP 18; TEMP 98.5; O2SAT 99
[2017-04-28 23:14] VITALS: BP 138/72; PULSE 74; RESP 18; TEMP 98.1; O2SAT 97
[2017-04-29] MEDS: CEFEPIME INJ 2,000 MG in SODIUM CHLORIDE 0.9% INJ 100 ML IV SCH ×3 (01:36→18:06)
[2017-04-29] MEDS: SODIUM CHLOR 0.45% 1000 ML INJ 1,000 ML IV SCH ×2 (02:15→14:06)
[2017-04-29 04:29] VITALS: BP 133/86; PULSE 78; RESP 18; TEMP 98.1; O2SAT 96
[2017-04-29 07:30] VITALS: BP 140/93; PULSE 84; RESP 18; TEMP 97.5; O2SAT 96
[2017-04-29 08:00] VITALS: BP 173/75; PULSE 56; RESP 20; TEMP 97.7; O2SAT 97
[2017-04-29] MEDS ORDERED: fentaNYL 50 MCG/HR PATCH T-DERMAL SCH (09:00)
[2017-04-29] MEDS ORDERED: REMOVE OLD DURAGESIC (FENTANYL) PATCH T-DERMAL SCH (09:00)
[2017-04-29] MEDS: PANTOPRAZOLE SOD 40 MG DELAYED RELEASE TAB PO SCH (09:45)
[2017-04-29] MEDS: AZITHROMYCIN INJ 500 MG in SODIUM CHLOR 0.9% 250 ML INJ 250 ML IV SCH (09:46)
[2017-04-29] MEDS: LISINOPRIL 10 MG TAB PO SCH (09:46)
[2017-04-29] MEDS: DOCUSATE SODIUM 50 MG/SENNA 8.6 MG TAB PO SCH ×2 (09:46→21:00)
[2017-04-29] MEDS: HYDROCHLOROTHIAZIDE 25 MG TAB PO SCH (09:46)
[2017-04-29] MEDS: SODIUM CHLORIDE 0.9% FLUSH 10 ML FLUSH IV FLUSH SCH ×2 (09:47→21:44)
[2017-04-29] MEDS: LOPERAMIDE HCL 2 MG CAP PO PRN ×2 (09:53→21:43)
[2017-04-29 12:00] VITALS: BP 134/93; PULSE 84; RESP 20; TEMP 99.6; O2SAT 96
--- NOTE | 2017-04-29 15:25 | HHI.PR ---
Subjective Remarks Patient seen this morning around 9 AM. Says she is feeling better than yesterday. Says she feels like she might be able go home tomorrow. Specimen nursing. No fevers overnight. Discussed with daughter. Feels like her mother is improving. Says her mood and demeanor still waxing and waning, but appears back to baseline. Objective Vital Signs Date Time Temp Pulse Resp B/P (MAP) Pulse Ox O2 Delivery O2 Flow Rate FiO2 04/29/17 12:00 99.6 84 20 134/93 (107) 96 04/29/17 07:30 97.5 84 18 140/93 (109) 96 04/29/17 04:29 98.1 78 18 133/86 (102) 96 04/28/17 23:14 98.1 74 18 138/72 (94) 97 04/28/17 21:16 98.5 93 18 123/87 (99) 99 04/28/17 17:12 97.9 55 20 132/83 (99) 97 I/O 04/28/17 04/28/17 04/28/17 04/29/17 04/29/17 04/29/17 07:00 15:00 23:00 07:00 15:00 23:00 # Voids 2 Result Diagram: 04/28/17 0540 04/28/17 0540 Objective Remarks GENERAL: Sitting up in bed. Appears comfortable. Alert and oriented 3. SKIN: Warm and dry. HEAD: Normocephalic. EYES: No scleral icterus. No injection or drainage. NECK: Supple, trachea midline. No JVD. CARDIOVASCULAR: Regular rate and rhythm without murmurs, gallops, or rubs. RESPIRATORY: Breath sounds equal bilaterally. No accessory muscle use. GASTROINTESTINAL: Abdomen soft, non-tender, nondistended. MUSCULOSKELETAL: No cyanosis, or edema. BACK: Nontender without obvious deformity. No CVA tenderness. A/P Assessment and Plan 61-year-old female with past medical history of hypertension, psychiatric illness //Acute encephalopathy, likely 2/2 pneumonia/sepsis. Improving. Neurochecks. Seizure precautions. Follow-up EEG. Avoid benzodiazepines and narcotics Visual and auditory hallucinations. Resolved = EEG with no seizure activity. Patient appears to be back to mental baseline per daughter. We will reassess tomorrow morning. //Hospital-acquired pneumonia with sepsis. Check lactic acid. Start cefepime and Zithromax and monitor cultures. Urine culture with contaminants Hypertension. Stable = Continue antibiotics. Likely discharge home tomorrow. //Liver cancer with lung metastases hx MEN. Status post embolization. Op f/u with oncology //DVT prophylaxis SCD/teds . Lovenox GI prophylaxis with PPIs Discharge Planning likely Discharge home tomorrow Mikel Wong MD Apr 29, 2017 15:25
[2017-04-29 16:00] VITALS: BP 154/99; PULSE 84; RESP 20; TEMP 97.8; O2SAT 98
[2017-04-29] MEDS: ENOXAPARIN SODIUM 40 MG/0.4 ML SYRINGE SQ SCH (18:06)
[2017-04-29 20:17] VITALS: BP 150/92; PULSE 99; RESP 18; TEMP 98.1; O2SAT 98
[2017-04-29] MEDS: hydrOXYzine PAMOATE 25 MG CAP PO PRN (21:43)
[2017-04-30] MEDS: CEFEPIME INJ 2,000 MG in SODIUM CHLORIDE 0.9% INJ 100 ML IV SCH ×2 (01:21→09:00)
[2017-04-30] MEDS: ALPRAZolam 1 MG TAB PO PRN (01:59)
[2017-04-30] MEDS: SODIUM CHLOR 0.45% 1000 ML INJ 1,000 ML IV SCH ×2 (02:00→08:45)
[2017-04-30] MEDS: ACETAMINOPHEN 325 MG TAB PO PRN (02:00)
[2017-04-30 08:00] VITALS: BP 152/97; PULSE 87; RESP 20; TEMP 98.1; O2SAT 99
[2017-04-30] MEDS: AZITHROMYCIN INJ 500 MG in SODIUM CHLOR 0.9% 250 ML INJ 250 ML IV SCH (08:43)
[2017-04-30] MEDS: SODIUM CHLORIDE 0.9% FLUSH 10 ML FLUSH IV FLUSH SCH (09:00)
[2017-04-30] MEDS: PANTOPRAZOLE SOD 40 MG DELAYED RELEASE TAB PO SCH (09:00)
[2017-04-30] MEDS: DOCUSATE SODIUM 50 MG/SENNA 8.6 MG TAB PO SCH (09:00)
[2017-04-30] MEDS: HYDROCHLOROTHIAZIDE 25 MG TAB PO SCH (09:19)
[2017-04-30] MEDS: LISINOPRIL 10 MG TAB PO SCH (09:19)
[2017-04-30] MEDS: hydrOXYzine PAMOATE 25 MG CAP PO PRN (11:24)
[2017-04-30 12:00] VITALS: BP 123/83; PULSE 92; RESP 20; TEMP 98.4; O2SAT 97
[2017-04-30] MEDS ORDERED: LEVA750T9 PO (12:16)
[2017-04-30] MEDS ORDERED: AMLO5TAB2 PO (12:16)
--- NOTE | 2017-04-30 12:17 | HHI.DS ---
Discharge Summary Admission Date Apr 28, 2017 at 10:39 am Discharge Date: Apr 30, 2017 Admitting Diagnosis CONFUSION,UTI (1) Encephalopathy acute ICD Code: G93.40 - Encephalopathy, unspecified Diagnosis: Principal (2) Pneumonia ICD Code: J18.9 - Pneumonia, unspecified organism Procedures EEG 04/28/2017 INTERPRETATION Normal awake and asleep EEG. Brief History - From Admission 61-year-old female with past medical history of anxiety/depression/ psychiatric illness, hypertension, was brought to the emergency room by police for further evaluation. Patient with altered mental status and change from her baseline also per family. The patient is alert and oriented and knows her name, date of , location, the year. She is however with auditory and visual hallucinations as time. She denies having any fever or chills no nausea vomiting no diarrhea or constipation. Denies any urinary symptoms except says she has some burning with urination. She is found with UTI and started to biotics in the emergency room. Patient denies currently taking any medications. The patient is also noted wondering. She is answering questions appropriately. She is however talking on the invisible phone, having her fingers on one ear. Records also reviewed CBC/BMP: 04/28/17 0540 04/28/17 0540 Significant Findings Laboratory Tests Test 04/27/17 16:38 04/27/17 20:00 04/28/17 05:40 04/28/17 15:24 Neutrophils (%) (Auto) 73.5 % (16.0-70.0) Random Glucose 112 MG/DL (74-106) Chloride Level 111 MEQ/L (98-107) Estimat Glomerular Filtration Rate 74 ML/MIN (>89) Imaging Last Impressions Brain MRI 04/28/17 0000 Signed Impressions: Service Date/Time: Friday, April 28, 2017 09:27 - CONCLUSION: Chronic inspissated mucus identified within the left maxillary sinus with mild mucosal thickening and enhancement within the left maxillary sinus. No evidence of metastatic disease within the brain. Arleth Barnes MD Chest X-Ray 04/27/17 0000 Signed Impressions: Service Date/Time: Thursday, April 27, 2017 20:31 - CONCLUSION: 1. Acute right base pneumonia, probably in the medial segment of the right middle lobe. Followup 2 view chest x-ray recommended in 3-6 weeks to confirm resolution. 2. Chronic bibasilar scarring. Isrrael Harvey MD Head CT 04/26/17 0000 Signed Impressions: Service Date/Time: Wednesday, April 26, 2017 13:24 - CONCLUSION: 1. No acute intracranial abnormality. Edwin Gates Jr., MD PE at Discharge GENERAL: This is a 61-year-old female in [facility], well-nourished, well- developed patient, without visual and auditory hallucinations. SKIN: No rashes, ecchymoses or lesions. Cool and dry. CARDIOVASCULAR: Regular rate and rhythm without murmurs, gallops, or rubs. RESPIRATORY: Equal breath sounds. Crackles right lung GASTROINTESTINAL: Abdomen soft, non-tender, nondistended. No guarding. MUSCULOSKELETAL: Extremities without clubbing, cyanosis, or edema. No joint tenderness, effusion, or edema noted. No calf tenderness. Negative Homans sign bilaterally. NEUROLOGICAL: Awake and alert. Cranial nerves II through XII intact. Motor and sensory grossly within normal limits. Five out of 5 muscle strength in all muscle groups. Normal speech. Pt update on day of discharge Patient is doing well. No acute concerns. Son at bedside. No fever, chills. Hospital Course 61-year-old female with past medical history of anxiety/depression/ psychiatric illness, hypertension, was brought to the emergency room by police for further evaluation on 04/26/2017. Patient with altered mental status and change from her baseline also per family. On CXR on 04/28/2017, right lung pneumonia which may be one of the contributing factors of encephalopathy. Patient was given Cefepime and Azithromycin in the hospital. We are discharging patient on Levaquin 750mg Qday x 6 days. On the day of discharge, she reported significant improvements. She follows up with outpatient oncology regarding her Liver cancer with lung mets. She takes chronic pain meds - fentanyl, norco as well as chronic anxiety medication Alprazolam. I recommended patient to discuss with her outpatient providers to gradually taper her off all narcotics. I discontinued Fentanyl patch. I also advised patient that lisinopril is not a first line BP med for non-diabetic patients. We switched lisinopril-hctz to Amlodipine. Patient will follow up with her PCP. Family was concerned about early dementia. We will refer patient to outpatient neurology for an evaluation. I discussed at length with patient, her son in the room and daughter on the phone. Pt Condition on Discharge: Good Discharge Disposition: Disch w/ Home Health Serv Discharge Time: > 30 minutes Discharge Instructions DIET: Follow Instructions for: As Tolerated, No Restrictions Activities you can perform: Regular-No Restrictions Follow up Referrals: Neurology - 2 Weeks @ [facility] PCP Follow-up - 1 Week PCP Follow-up New Medications: Amlodipine (Amlodipine) 5 Mg Tab 5 MG PO DAILY for Blood Pressure Management, #30 TAB 6 Refills Levofloxacin (Levaquin) 750 Mg Tablet 750 MG PO DAILY for Infection, #6 TAB Continued Medications: Alprazolam (Xanax) 1 Mg Tab 1 MG PO Q6H PRN for ANXIETY, TAB [address] (Nexium) 40 Mg Capdr 40 MG PO DAILY for Reflux, #30 CAP 5 Refills (This prescription has been renewed ) Hydrocodone-Acetaminophen ([place]) 5-325 mg Tab 1 TAB PO Q6H PRN for PAIN, TAB 0 Refills Zolpidem (Ambien) 10 Mg Tab 10 MG PO HS PRN for INSOMNIA, TAB 0 Refills Discontinued Medications: Fentanyl Patch 72 HR (Fentanyl Patch 72 HR) 50 Mcg/Hr Patch 50 MCG T-DERMAL Q72H for Pain Management, #10 PATCH 0 Refills Remove old patch when new one placed. Lisinopril-Hctz (Lisinopril-Hctz) 10-12.5 Mg Tab 1 TAB PO DAILY for Blood Pressure Management, #30 TAB 0 Refills Meghana Rizvi DO Apr 30, 2017 12:17
--- NOTE | 2017-04-30 12:21 | HHI.FF ---
Face to Face Verification Diagnosis: (1) Dementia (2) Pneumonia (3) Encephalopathy acute Physical Therapy Order: Evaluate and Treat, Improve ambulation, Strength and gait training Home Health Nursing Order: Medical education Signs/symptoms of disease process Medication education-adverse effect Nursing assessment with vital signs I have seen patient Lady Mary on 04/30/17. My clinical findings support the need for the requested home health care services because: Ltd mobility - disease progression Deconditioned w/ increased weakness Med compliance is questionable Limited ability to care for self Need for psychosocial assistance Impaired cognition/judgement High risk of falls Infection w/ risk of complications I certify that my clinical findings support that this patient is homebound because: Impaired cognitive ability/safety Unsteady gait/balance Unsafe to leave home unassisted Need for psychosocial assistance Unable to use public transportation Meghana Rizvi DO Apr 30, 2017 12:21 pm
[2017-04-30] MEDS ORDERED: NEXI40CA PO (12:45)
[2017-05-01] MEDS ORDERED: LEVOFLOXACIN 750 MG TAB PO SCH (09:00)
== END 2017-04-30 14:09 | disposition home health service (06) | DRG 871 ==
LOC: NEPD 04:21 → NEDA 12:13 → NEPFCDU 19:48 → OBSVTOIN 04-28 10:39
PROVIDERS: ADMIT Hospitalist; ATTEND Hospitalist
DX: A41.9 Sepsis, unspecified organism (principal); G93.40 Encephalopathy, unspecified; C22.9 Malignant neoplasm of liver, not specified as primary or secondary; C78.00 Secondary malignant neoplasm of unspecified lung; J18.9 Pneumonia, unspecified organism; F03.90 Unspecified dementia, unspecified severity, without behavioral disturbance, psychotic disturbance, mood disturbance, and anxiety; K21.9 Gastro-esophageal reflux disease without esophagitis; I10 Essential (primary) hypertension; F32.9 Major depressive disorder, single episode, unspecified; M19.90 Unspecified osteoarthritis, unspecified site; F41.9 Anxiety disorder, unspecified; Y95 Nosocomial condition; Z96.651 Presence of right artificial knee joint; Z88.5 Allergy status to narcotic agent; Z88.6 Allergy status to analgesic agent; R82.99 Other abnormal findings in urine; B96.89 Other specified bacterial agents as the cause of diseases classified elsewhere
CPT/HCPCS: 70450; 70553; 71045; 76937; 80048; 80053; 80307; 81001; 82140; 82550; 82948; 83605; 83735; 84443; 85025; 87040; 87086; 87493; 87506; 94150; 95819; 96361; 96365; 96372; A9579; G0378; J0456; J0692; J0696; J1630; J1650; J7030; J7050; Q0177

== ENCOUNTER 2017-11-30 12:47 | Observation (INO) ==
--- NOTE | 2017-11-30 16:15 | ED ---
HPI General Chief complaint: Recheck/Abnormal Lab/Rx Stated complaint: Fluid in Heart Source: patient Mode of arrival: ambulatory Limitations: no limitations History of Present Illness HPI narrative: Patient seen earlier by me, coming in with dyspnea on exertion, found to have CHF which I would assume his new onset this point, patient does not know any history of CHF in the past. She had decided to go home to open the door for her relatives to get into the apartment, and came back here to get admitted as previously discussed. She reports no new issues. Related Data Home Medications Medication Instructions Recorded Confirmed alprazolam [Xanax] 0.25 mg PO BID PRN 11/30/17 11/30/17 amlodipine 5 mg PO DAILY 11/30/17 11/30/17 oxycodone [OxyContin] 10 mg PO Q12H 11/30/17 11/30/17 Allergies Allergy/AdvReac Type Severity Reaction Status Date / Time diatrizoate meglumine Allergy Intermediate EDEMA Unverified 11/30/17 07:55 gadobenic acid Allergy Intermediate EDEMA Unverified 11/30/17 07:55 gadodiamide Allergy Intermediate EDEMA Unverified 11/30/17 07:55 gadoteridol Allergy Intermediate EDEMA Unverified 11/30/17 07:55 iodixanol Allergy Intermediate EDEMA Unverified 11/30/17 07:55 iohexol Allergy Intermediate EDEMA Unverified 11/30/17 07:55 tramadol Allergy Unknown swelling Unverified 11/30/17 07:55 alprazolam AdvReac Severe RINGING IN Unverified 11/30/17 07:55 EARS amitriptyline AdvReac Severe PT STATES Unverified 11/30/17 07:55 "KEEPS ME FROM URINATING" aspirin AdvReac Severe RINGING Unverified 11/30/17 07:55 EARS clonazepam AdvReac Severe RINGING IN Unverified 11/30/17 07:55 EARS clorazepate dipotassium AdvReac Severe RINGING IN Unverified 11/30/17 07:55 EARS cyclobenzaprine AdvReac Severe EARS Unverified 11/30/17 07:55 RINGING diazepam AdvReac Severe RINGING IN Unverified 11/30/17 07:55 EARS lorazepam AdvReac Severe RINGING IN Unverified 11/30/17 07:55 EARS midazolam AdvReac Severe RINGING IN Unverified 11/30/17 07:55 EARS oxazepam AdvReac Severe RINGING IN Unverified 11/30/17 07:55 EARS temazepam AdvReac Severe RINGING IN Unverified 11/30/17 07:55 EARS mucinex AdvReac Intermediate Hives Uncoded 11/30/17 07:55 Review of Systems ROS: all other systems reviewed are negative PMFSH Social History Social History Second Hand Smoke Exposure: No Smoking Status: Never smoker How Often Do You Have a Drink Containing Alcohol: Never Recent Travel in [facility] within the Last 8 Weeks: No Recent Out of Country Travel within the Last 8 Weeks: No Exam Narrative Exam Narrative: GENERAL: Well-nourished, well-developed patient in mild respiratory distress. Awake and oriented 3. SKIN: Focused skin assessment warm/dry. HEAD: Normocephalic. EYES: No scleral icterus. No injection or drainage. NECK: Supple, trachea midline. CARDIOVASCULAR: Fast and regular with no rubs or murmurs. RESPIRATORY: Breath sounds with wheezing, decreased at the bases. GASTROINTESTINAL: Abdomen soft, non-tender, nondistended. MUSCULOSKELETAL: No cyanosis. Bilateral pitting edema of the legs. BACK: Nontender without obvious deformity. No CVA tenderness. Course Initial Documented Vital Signs Temperature 99.6 F 11/30/17 13:26 Pulse Rate 126 H 11/30/17 13:26 Respiratory Rate 18 11/30/17 13:26 Blood Pressure 146/92 H 11/30/17 13:26 Pulse Oximetry 95 11/30/17 13:26 Last Documented Vital Signs Temperature 99.6 F 11/30/17 13:26 Pulse Rate 126 H 11/30/17 13:26 Respiratory Rate 18 11/30/17 13:26 Blood Pressure 146/92 H 11/30/17 13:26 Pulse Oximetry 95 11/30/17 13:26 Medical Decision Making MDM Narrative Medical decision making narrative: Chest x-ray done earlier is concerning for pulmonary edema. Patient had been given Lasix earlier. She is here to be admitted. At this point, case is discussed with Dr. Rizvi for admission. Medical Screen Exam Complete: Yes Emergency Medical Condition: Yes Discharge Plan Discharge Disposition Patient Disposition: 30 Still Patient Discharge Condition Condition: Stable Discharge Details Anticipated Discharge Date: 11/30/17 Diagnosis: New onset of congestive heart failure Physicians Team ED Provider: Connor Bloom Primary Care Provider: Juan Van III Rxs /Orders / Referrals /Forms Prescriptions: No Action amlodipine 5 mg Tablet 5 mg PO DAILY RF: 0 alprazolam [Xanax] 0.25 mg Tablet 0.25 mg PO BID PRN (Reason: Anxiety) RF: 0 oxycodone [OxyContin] 10 mg Tablet,Oral Only,Ext.Rel.12 Hr 10 mg PO Q12H RF: 0 Status ED Status: In Room
[2017-11-30] MEDS ORDERED: Bisacodyl 10 MG Supp RECTAL PRN (16:57)
[2017-11-30] MEDS ORDERED: Acetaminophen 325 MG Tablet PO PRN (16:57)
--- NOTE | 2017-11-30 18:10 | P.HP ---
History of Present Illness Service: Hospitalist Primary Care Physician: Juan Van III, MD Chief Complaint: Shortness of breath History of Present Illness: Ms. Mary is a pleasant 62-year-old -[place] female with a history of hypertension who presented to the emergency department earlier in the morning once and then again later in the day due to shortness of breath. Patient reports onset of her dyspnea about 3 weeks ago. She reports cough with clear colored sputum production. No fever or chills. She always have difficulty sleeping flat. No abdominal pain, changes in bowel or bladder habits. Later in the day she had a chest x-ray which shows bilateral pleural effusion as well as consolidation. BNP is elevated to 603. EKG shows sinus tachycardia. Past medical history: Hypertension, anxiety Past surgical history: Parathyroid surgery Social history: She does not smoke or drink. Family history: No family history of Alzheimer's or Parkinson's. Review of Systems All other systems reviewed negative except as stated in HPI PMFSH - History History Provided By: Patient - Medical History Medical History: Medical History (Last Reviewed 11/30/17 @ 08:38 by Connor Bloom MD) Hx of malignant neoplasm of bone (Acute) History of high cholesterol (Acute) Hx of primary hypertension (Acute) Hx of hysterectomy (Acute) - Surgical History Surgical History: Surgical History (Last Reviewed 11/30/17 @ 08:38 by Connor Bloom MD) History of total left knee replacement (Acute) - Tobacco History Second Hand Smoke Exposure: No Smoking Status: Never smoker - Alcohol History How Often Do You Have a Drink Containing Alcohol: Never - Travel History Recent Travel in the [facility] Within the Last 8 Weeks: No Recent Travel Out of the Country Within the Last 8 Weeks: No Medications and Allergies Active Medications: Active Medications Acetaminophen (Tylenol) 650 mg PO Q4H PRN PRN Reason: Headache, fever, pain 1-4 Al Hydroxide/Mg Hydroxide (Milk Of Magnesia Liq) 30 ml PO Q12H PRN PRN Reason: Mild Constipation Bisacodyl (Dulcolax Supp) 10 mg RECTAL DAILY PRN PRN Reason: SEVERE CONSITIPATION Furosemide (Lasix Inj) 40 mg IV.PUSH BID@0900,1800 MALLY Lactulose (Lactulose Liq) 30 ml PO DAILY PRN PRN Reason: SEVERE CONSITIPATION Levofloxacin (Levaquin) 750 mg PO DAILY MALLY Ondansetron HCl (Zofran Inj) 4 mg IV.PUSH Q6H PRN PRN Reason: NAUSEA OR VOMITING Sennosides (Senokot) 17.2 mg PO Q12H PRN PRN Reason: Moderate Constipation Allergies Allergy/AdvReac Type Severity Reaction Status Date / Time diatrizoate meglumine Allergy Intermediate EDEMA Unverified 11/30/17 07:55 gadobenic acid Allergy Intermediate EDEMA Unverified 11/30/17 07:55 gadodiamide Allergy Intermediate EDEMA Unverified 11/30/17 07:55 gadoteridol Allergy Intermediate EDEMA Unverified 11/30/17 07:55 iodixanol Allergy Intermediate EDEMA Unverified 11/30/17 07:55 iohexol Allergy Intermediate EDEMA Unverified 11/30/17 07:55 tramadol Allergy Unknown swelling Unverified 11/30/17 07:55 alprazolam AdvReac Severe RINGING IN Unverified 11/30/17 07:55 EARS amitriptyline AdvReac Severe PT STATES Unverified 11/30/17 07:55 "KEEPS ME FROM URINATING" aspirin AdvReac Severe RINGING Unverified 11/30/17 07:55 EARS clonazepam AdvReac Severe RINGING IN Unverified 11/30/17 07:55 EARS clorazepate dipotassium AdvReac Severe RINGING IN Unverified 11/30/17 07:55 EARS cyclobenzaprine AdvReac Severe EARS Unverified 11/30/17 07:55 RINGING diazepam AdvReac Severe RINGING IN Unverified 11/30/17 07:55 EARS lorazepam AdvReac Severe RINGING IN Unverified 11/30/17 07:55 EARS midazolam AdvReac Severe RINGING IN Unverified 11/30/17 07:55 EARS oxazepam AdvReac Severe RINGING IN Unverified 11/30/17 07:55 EARS temazepam AdvReac Severe RINGING IN Unverified 11/30/17 07:55 EARS mucinex AdvReac Intermediate Hives Uncoded 11/30/17 07:55 Home Medications Medication Instructions Recorded Confirmed Type alprazolam [Xanax] 0.25 mg PO BID PRN 11/30/17 11/30/17 History amlodipine 5 mg PO DAILY 11/30/17 11/30/17 History oxycodone [OxyContin] 10 mg PO Q12H 11/30/17 11/30/17 History esomeprazole magnesium [Nexium] 40 mg PO DAILY 12/01/17 12/01/17 History Exam Vital signs: Vital Signs 11/30/17 13:26 11/30/17 17:13 Temperature 99.6 F 98.9 F Pulse Rate 126 H 127 H Respiratory Rate 18 20 Blood Pressure 146/92 H 132/91 H Pulse Oximetry 95 92 L Intake & Output 11/29/17 11/30/17 11/30/17 18:59 06:59 18:59 Weight 76 kg Other: Weight On Admission 76 kg Narrative: GENERAL: This is a well-nourished, well-developed patient, in no apparent distress. SKIN: No rashes, ecchymoses or lesions. Warm and dry. HEAD: Atraumatic. Normocephalic. No temporal or scalp tenderness. EYES: Pupils equal round and reactive. No injection or drainage. ENT: Nose without bleeding, purulent drainage or septal hematoma. Airway patent. NECK: Trachea midline. No lymphadenopathy. Supple, nontender, no meningeal signs. CARDIOVASCULAR: Reg rhythm, tachycardic without murmurs, gallops, or rubs. No JVD. RESPIRATORY: Diminished breath sounds in the bibasilar space. No wheezes, rales , or rhonchi. GASTROINTESTINAL: Abdomen soft, non-tender, nondistended. No guarding. MUSCULOSKELETAL: Extremities without clubbing, cyanosis. Trace edema. NEUROLOGICAL: Awake and alert. Cranial nerves II through XII intact. No focal neurological deficits. Normal speech. Caprini VTE Risk Assessment Caprini VTE Risk Assessment: Moderate/High Risk (score >= 2) Caprini Risk Assessment Model: Point Value = 1 Point Value = 2 Point Value = 3 Point Value = 5 Age 41-60 Minor surgery BMI > 25 kg/m2 Swollen legs Varicose veins or History of unexplained or recurrent spontaneous Oral contraceptives or hormone replacement Sepsis (< 1 month) Serious lung disease, including pneumonia (< 1 month) Abnormal pulmonary function Acute myocardial infarction Congestive heart failure (< 1 month) History of inflammatory bowel disease Medical patient at bed rest Age 61-74 Arthroscopic surgery Major open surgery (> 45 min) Laparoscopic surgery (> 45 min) Malignancy Confined to bed (> 72 hours) Immobilizing plaster cast Central venous access Age >= 75 History of VTE Family history of VTE Factor V Leiden Prothrombin [id number] Lupus anticoagulant Anticardiolipin antibodies Elevated serum homocysteine Heparin-induced thrombocytopenia Other congenital or acquired thrombophilia Stroke (< 1 month) Elective arthroplasty Hip, pelvis, or leg fracture Acute spinal cord injury (< 1 month) Prophylaxis Regimen: Total Risk Factor Score Risk Level Prophylaxis Regimen 0-1 Low Early ambulation 2 Moderate Order ONE of the following: *Sequential Compression Device (SCD) *Heparin 5000 units SQ BID 3-4 Higher Order ONE of the following medications: *Heparin 5000 units SQ TID *Enoxaparin/Lovenox 40 mg SQ daily (WT < 150 kg, CrCl > 30 mL/min) *Enoxaparin/Lovenox 30 mg SQ daily (WT < 150 kg, CrCl > 10-29 mL/min) *Enoxaparin/Lovenox 30 mg SQ BID (WT < 150 kg, CrCl > 30 mL/min) AND/OR *Sequential Compression Device (SCD) 5 or more Highest Order ONE of the following medications: *Heparin 5000 units SQ TID (Preferred with Epidurals) *Enoxaparin/Lovenox 40 mg SQ daily (WT < 150 kg, CrCl > 30 mL/min) *Enoxaparin/Lovenox 30 mg SQ daily (WT < 150 kg, CrCl > 10-29 mL/min) *Enoxaparin/Lovenox 30 mg SQ BID (WT < 150 kg, CrCl > 30 mL/min) AND *Sequential Compression Device (SCD) Assessment and Plan - Plan Ms. mary is a 62-year-old -[place] female with a history of hypertension who presents to the emergency department due to 3 week duration of shortness of breath with clear sputum production. She denies any fever or chills. Chest x-ray shows bilateral pleural effusion with consolidation. Probable acute onset of congestive heart failure -We will start patient on Lasix 40 mg IV every 12 hours. -We will obtain echocardiogram to evaluate LV function Probable pneumonia -We will start patient on Levaquin 750 mg p.o. daily. Hypertension - Will consider re-starting Amlodipine if needed. Full code. Lovenox.
[2017-11-30] MEDS ORDERED: oxyCODONE/Acetaminophen 10/325 Tablet PO PRN (18:13)
[2017-11-30] MEDS ORDERED: Torsemide 20 MG Tablet PO ONE (18:30)
[2017-11-30] MEDS: levoFLOXacin 750 MG Tablet PO SCH (18:37)
[2017-11-30] MEDS: Enoxaparin Inj 40 MG/0.4 ML Syringe SQ SCH (20:07)
[2017-12-01] MEDS: levoFLOXacin 750 MG Tablet PO SCH (08:47)
[2017-12-01] MEDS ORDERED: Metoprolol Tartrate 50 MG Tablet PO ONE (12:00)
--- NOTE | 2017-12-01 14:43 | P.PN ---
Subjective Interval history: Follow up for pneumonia and cardiomyopathy. Patient is currently doing well on room air. She wants to take her Nexium. No CP, SOB, fever, chills. Physical Exam Vital signs: Vital Signs 11/30/17 17:13 11/30/17 20:00 12/01/17 00:00 Temperature 98.9 F 100.3 F H 99.8 F H Pulse Rate 127 H 134 H 123 H Respiratory Rate 20 20 18 Blood Pressure 132/91 H 124/86 107/76 Pulse Oximetry 92 L 93 L 95 12/01/17 04:00 12/01/17 07:36 12/01/17 08:00 Temperature 98.1 F 99.1 F Pulse Rate 98 H 114 H 110 H Respiratory Rate 16 20 Blood Pressure 120/81 129/85 Pulse Oximetry 92 L 92 L 12/01/17 10:00 12/01/17 10:37 12/01/17 11:26 Temperature 98.6 F Pulse Rate 126 H 138 H 115 H Respiratory Rate 20 Blood Pressure 134/65 Pulse Oximetry 94 L Intake & Output 11/30/17 12/01/17 12/01/17 18:59 06:59 18:59 Weight 76 kg 76.6 kg Other: # Voids 3 Date of Last Bowel Movement 11/30/17 12/01/17 Weight On Admission 76 kg Narrative: GENERAL: Alert, oriented x 3, NAD. SKIN: Warm and dry. HEAD: Normocephalic. EYES: No scleral icterus. No injection or drainage. NECK: Supple, trachea midline. No JVD or lymphadenopathy. CARDIOVASCULAR: Regular rate and rhythm without murmurs, gallops, or rubs. RESPIRATORY: Breath sounds equal bilaterally. No accessory muscle use. GASTROINTESTINAL: Abdomen soft, non-tender, nondistended. MUSCULOSKELETAL: No cyanosis, or edema. BACK: Nontender without obvious deformity. No CVA tenderness. Results - Labs Laboratory Results - last 24 hr 11/30/17 12/01/17 18:10 00:13 Troponin I 0.03 0.03 Assessment and Plan - Plan Ms. mullins is a 62-year-old -[place] female with a history of hypertension who presents to the emergency department due to 3 week duration of shortness of breath with clear sputum production. She denies any fever or chills. Chest x-ray shows bilateral pleural effusion with consolidation. Probable acute onset of congestive heart failure -Switch to Torsemide 10mg BID. -echocardiogram to evaluate LV function completed - Nurses Medical Assistants Phlebotomists reading pending. However, it appears that patient's EF is 20-25%. -Patient does not want to do Nuclear Stress test. -Advised patient to discuss with PCP and also with Cardiology in the outpatient setting. Probable pneumonia -evaquin 750 mg p.o. daily. Hypertension - Will start patient on Metoprolol succ 50mg Qday, Losartan 25mg Qday and Torsemide 10mg BID Full code. Lovenox.
--- NOTE | 2017-12-01 15:30 | ECG ---
Date Performed: 12/01/2017 Time Performed: 11:37:57 PTAGE: 62 years EKG: SINUS TACHYCARDIA WITH OCCASIONAL PACS LVH BY VOLTAGE NONSPECIFIC ST-T CHANGE Compared to p revious tracing, T wave changes anterolaterally slightly more prominent, otherwise no significant kenia nge. ABNORMAL ECG PREVIOUS TRACING : 11/30/2017 10.07 DOCTOR: Rj Daugherty Interpretating Date/Time 12/01/2017 15:29:20
--- NOTE | 2017-12-01 16:12 | ECHRPT ---
Indication: HEART FAILURE CONCLUSIONS The left ventricular systolic function is severely reduced with an estimated ejection fraction in th e range of 20%. Mildly dilated left ventricle. Mild mitral valve regurgitation. Trace aortic valve regurgitation. There is trace tricuspid valve regurgitation. Small bilateral pleural effusions noted. BP: / HR: Rhythm: MEASUREMENTS (Male / Female) Normal Values Technical Quality: 2D ECHO LV Diastolic Diameter PLAX 5.7 cm 4.2 - 5.9 / 3.9 - 5.3 cm LV Systolic Diameter PLAX 5.3 cm IVS Diastolic Thickness 1.1 cm 0.6 - 1.0 / 0.6 - 0.9 cm LVPW Diastolic Thickness 0.7 cm 0.6 - 1.0 / 0.6 - 0.9 cm LV Relative Wall Thickness 0.3 RV Internal Dim ED PLAX 2.1 cm LA Systolic Diameter LX 4.3 cm 3.0 - 4.0 / 2.7 - 3.8 cm M-MODE AV Cusp Separation MM 1.8 cm DOPPLER Mitral E Point Velocity 121.0 cm/s TR Peak Velocity 276.0 cm/s TR Peak Gradient 30.5 mmHg Right Atrial Pressure 10.0 mmHg Pulmonary Artery Systolic Pressu 40.5 mmHg Right Ventricular Systolic Press 40.5 mmHg FINDINGS LEFT VENTRICLE Mildly dilated left ventricle. Wall thickness is normal. The left ventricular systolic function is severely reduced with an estimated ejection fraction in th e range of 20%. RIGHT VENTRICLE Grossly normal LEFT ATRIUM The left atrial size is mildly dilated. RIGHT ATRIUM The right atrial size is normal. ATRIAL SEPTUM Normal atrial septal thickness without atrial level shunting by limited color doppler interrogation. AORTA The aortic root and proximal ascending aorta are normal in size on limited imaging. MITRAL VALVE Mitral annular calcification is present. Structurally normal mitral valve. Mild mitral valve regurgitation. No mitral valve stenosis. AORTIC VALVE Aortic valve sclerosis is present. Trace aortic valve regurgitation. No aortic valve stenosis. TRICUSPID VALVE Structurally normal tricuspid valve. There is trace tricuspid valve regurgitation. The estimated pulmonary arterial pressure is 41 mmHg. PULMONARY VALVE No pulmonary valve regurgitation or stenosis. VESSELS The inferior vena cava is normal in size. PERICARDIUM Small bilateral pleural effusions noted Agusto Aguilar DO (Electronically Signed) Final Date:01 December 2017 16:12
[2017-12-01] MEDS: Enoxaparin Inj 40 MG/0.4 ML Syringe SQ SCH (21:17)
[2017-12-01] MEDS: Metoprolol Tartrate 25 MG Tablet PO SCH (21:18)
[2017-12-02] MEDS: Metoprolol Tartrate 25 MG Tablet PO SCH (09:25)
[2017-12-02] MEDS: levoFLOXacin 750 MG Tablet PO SCH (09:26)
[2017-12-02 10:30] VITALS: BP 126/70; PULSE 113; RESP 18; TEMP 98.1; O2SAT 95
--- NOTE | 2017-12-02 10:45 | P.PN ---
Subjective Interval history: Follow up for pneumonia and cardiomyopathy. Patient is currently doing well. She wants to go home. She refuses to do nuclear stress test. However she will discuss with her primary care physician and also I are to obtain a cardiology follow-up in the outpatient setting in coordination with her primary care physician. Physical Exam Vital signs: Vital Signs 12/01/17 11:26 12/01/17 12:40 12/01/17 15:24 Temperature 98.6 F 98.8 F Pulse Rate 115 H 98 H 99 H Respiratory Rate 20 20 Blood Pressure 134/65 132/68 Pulse Oximetry 94 L 94 L 12/01/17 19:55 12/01/17 20:00 12/02/17 00:00 Temperature 98.6 F 98.4 F Pulse Rate 97 H 104 H 88 Respiratory Rate 16 16 Blood Pressure 97/66 L 99/71 L Pulse Oximetry 96 95 12/02/17 04:00 12/02/17 08:00 Temperature 98.7 F 98.1 F Pulse Rate 95 H 113 H Respiratory Rate 16 18 Blood Pressure 101/70 126/70 Pulse Oximetry 97 95 Intake & Output 12/01/17 12/02/17 12/02/17 18:59 06:59 18:59 Intake Total 960 / 960 200 / 200 Balance 960 / 960 200 / 200 Intake: Oral 960 / 960 200 / 200 Other: # Voids 4 3 Date of Last Bowel Movement 12/01/17 12/01/17 # Bowel Movements 1 Narrative: GENERAL: Alert, oriented x 3, NAD. SKIN: Warm and dry. HEAD: Normocephalic. EYES: No scleral icterus. No injection or drainage. NECK: Supple, trachea midline. No JVD or lymphadenopathy. CARDIOVASCULAR: Regular rate and rhythm without murmurs, gallops, or rubs. RESPIRATORY: Breath sounds equal bilaterally. No accessory muscle use. GASTROINTESTINAL: Abdomen soft, non-tender, nondistended. MUSCULOSKELETAL: No cyanosis, or edema. BACK: Nontender without obvious deformity. No CVA tenderness. Assessment and Plan - Plan Ms. mullins is a 62-year-old -[place] female with a history of hypertension who presents to the emergency department due to 3 week duration of shortness of breath with clear sputum production. She denies any fever or chills. Chest x-ray shows bilateral pleural effusion with consolidation. Probable acute onset of congestive heart failure -Switch to Torsemide 10mg BID. -echocardiogram to evaluate LV function completed - Desktop Support Specialist reading pending. However, it appears that patient's EF is 20-25%. -Patient does not want to do Nuclear Stress test. -Advised patient to discuss with PCP and also with Cardiology in the outpatient setting. -Upon discharge will continue metoprolol succinate 50 mg daily, losartan 25 mg daily, torsemide 10 mg twice daily. Probable pneumonia -Levaquin 750 mg p.o. daily. Hypertension - Metoprolol succ 50mg Qday, Losartan 25mg Qday and Torsemide 10mg BID Full code. Lovenox. Discharge patient to home Condition on discharge: Improved Heart healthy diet as tolerated Ad Galina activity Rx written: Levaquin 750 mg p.o. daily #5 Losartan 25 mg p.o. daily Metoprolol succinate 50 mg p.o. daily Torsemide 10 mg p.o. daily. Follow-up with primary care physician
== END 2017-12-02 13:23 | disposition home or self-care (01) ==
LOC: PHEDA 12:47 → PHED 12:47 → PH3 17:12
PROVIDERS: ADMIT Hospitalist; ATTEND Hospitalist
DX: R06.09 Other forms of dyspnea; Z85.830 Personal history of malignant neoplasm of bone; Z90.710 Acquired absence of both cervix and uterus; I08.3 Combined rheumatic disorders of mitral, aortic and tricuspid valves; F41.9 Anxiety disorder, unspecified; R05 Cough; R06.02 Shortness of breath; I51.7 Cardiomegaly; R06.03 Acute respiratory distress; J98.11 Atelectasis; E78.00 Pure hypercholesterolemia, unspecified; R06.2 Wheezing; I10 Essential (primary) hypertension; Z79.899 Other long term (current) drug therapy; R00.0 Tachycardia, unspecified; Z88.8 Allergy status to other drugs, medicaments and biological substances; J90 Pleural effusion, not elsewhere classified

== ENCOUNTER 2018-03-01 03:39 | Inpatient (IN) ==
[2018-03-01] MEDS ORDERED: Haloperidol Inj 5 MG/ML Ampul IM ONE (04:37)
--- NOTE | 2018-03-01 05:34 | ED ---
HPI General Chief complaint: Medical Clearance Stated complaint: confusion Time Seen by Provider: 03/01/18 04:05 History of Present Illness HPI narrative: Patient seen and examined with a female nurse apprentice painter brush present at all times. Patient is a 62-year-old female with a history of mild dementia recurrent urinary tract infection presents emergency department with daughter for evaluation of altered mental status. Patient's daughter states the last time this happened to the patient she actually was diagnosed with a urinary tract infection. She states that she is just been confused and up all night tonight. The patient is quite bizarre flight of ideas and cannot stay on any one topic. She is interacting with unseen stimuli in the room and is unable to provide much of her own history. Despite this she is oriented to self, year, and can tell me who the president is. She only complains of left-sided chest wall mass and she states that her daughter is trying to get it treated. She attempted to disrobe while I am in the room to show me the lesion on the left side of her chest. Related Data Home Medications Medication Instructions Recorded Confirmed alprazolam [Xanax] 0.25 mg PO BID PRN 11/30/17 03/01/18 oxycodone [OxyContin] 10 mg PO Q12H 11/30/17 03/01/18 esomeprazole magnesium [Nexium] 40 mg PO DAILY 12/01/17 03/01/18 Previous Rx's Medication Instructions Recorded losartan 25 mg PO DAILY #30 tab 12/01/17 metoprolol succinate 50 mg PO DAILY #90 tab 12/01/17 torsemide 10 mg PO BID #60 tab 12/01/17 acetaminophen 500 mg PO QID PRN #100 cap 02/22/18 Allergies Allergy/AdvReac Type Severity Reaction Status Date / Time amitriptyline AdvReac Severe PT STATES Verified 02/22/18 18:42 "KEEPS ME FROM URINATING" aspirin AdvReac Severe RINGING Verified 02/22/18 18:42 EARS clonazepam AdvReac Severe RINGING IN Verified 02/22/18 18:42 EARS clorazepate dipotassium AdvReac Severe RINGING IN Verified 02/22/18 18:42 EARS cyclobenzaprine AdvReac Severe EARS Verified 02/22/18 18:42 RINGING diazepam AdvReac Severe RINGING IN Verified 02/22/18 18:42 EARS lorazepam AdvReac Severe RINGING IN Verified 02/22/18 18:42 EARS midazolam AdvReac Severe RINGING IN Verified 02/22/18 18:42 EARS oxazepam AdvReac Severe RINGING IN Verified 02/22/18 18:42 EARS temazepam AdvReac Severe RINGING IN Verified 02/22/18 18:42 EARS mucinex AdvReac Intermediate Hives Uncoded 02/22/18 18:42 Review of Systems ROS: all other systems reviewed are negative [facility] [place] Medical History Medical History Hx of malignant neoplasm of bone (Acute) History of high cholesterol (Acute) Hx of primary hypertension (Acute) Hx of hysterectomy (Acute) Liver cancer (Acute) Lung cancer (Acute) Surgical History Surgical History History of total left knee replacement (Acute) Social History Social History Substance History: No History of Abuse Second Hand Smoke Exposure: No Smoking Status: Never smoker How Often Do You Have a Drink Containing Alcohol: Never Recent Travel in [facility] within the Last 8 Weeks: No Recent Out of Country Travel within the Last 8 Weeks: No Immunization History Tetanus Immunization: >5 Years Exam Narrative Exam Narrative: GENERAL: Well-developed well-nourished, quite bizarre in behavior. SKIN: Focused skin assessment warm/dry. HEAD: Atraumatic. Normocephalic. EYES: Pupils equal and round. No scleral icterus. No injection or drainage. ENT: No nasal bleeding or discharge. Mucous membranes pink and dry. NECK: Trachea midline. No JVD. CARDIOVASCULAR: Regular rhythm with tachycardia. No murmur appreciated. There is a baseball sized mass on the left chest wall minimally tender to palpation. Does not appear to be consistent with an abscess is very hard. RESPIRATORY: No accessory muscle use. Clear to auscultation. Breath sounds equal bilaterally. GASTROINTESTINAL: Abdomen soft, non-tender, nondistended. Hepatic and splenic margins not palpable. MUSCULOSKELETAL: No obvious deformities. No clubbing. No cyanosis. No edema. NEUROLOGICAL: Awake and alert. No obvious cranial nerve deficits. Motor grossly within normal limits. Normal speech. PSYCHIATRIC: Flight of ideas, difficult to keep on track. The patient is obviously delirious. Course Initial Documented Vital Signs Temperature 98.9 F 03/01/18 03:43 Pulse Rate 122 H 03/01/18 03:43 Respiratory Rate 16 03/01/18 03:43 Blood Pressure 138/103 H 03/01/18 03:43 Pulse Oximetry 100 03/01/18 03:43 Last Documented Vital Signs Temperature 98.9 F 03/01/18 03:43 Pulse Rate 111 H 03/01/18 07:01 Respiratory Rate 18 03/01/18 03:52 Blood Pressure 138/103 H 03/01/18 03:43 Pulse Oximetry 99 03/01/18 07:14 Medical Decision Making MDM Narrative Medical decision making narrative: Patient room to the emergency department, because she is fighting nurses testing and refuses chest x-ray dose of Haldol was ordered for her. Continues to try and leave the department and her daughter is very concerned for the patient's safety. For that reason Ativan and Benadryl were ordered and these medications were given intramuscularly. We will continue to assess the patient delirium and begin workup when she is more cooperative. 7:16 AM. Patient was seen by ED physician and signed out to me Chest x-ray shows pneumonia and right pleural effusion. UA positive for UTI. Patient is hypokalemic. Rocephin 1 g IV given. Zithromax 5 mg IV given. Potassium 40 mEq p.o. given. Potassium 20 mEq IV given. Patient will be admitted. Lab Data Result diagrams: 03/01/18 06:10 03/01/18 06:10 Lab Results 03/01/18 03/01/18 03/01/18 Range/Units 04:15 06:10 06:10 WBC 9.2 (4.0-11.0) th/mm3 RBC 3.98 L (4.00-5.30) mil/mm3 Hgb 11.3 L (11.6-15.3) gm/dL Hct 33.2 L (35.0-46.0) % MCV 83.4 (80.0-100.0) fL MCH 28.3 (27.0-34.0) pg MCHC 34.0 (32.0-36.0) % RDW 17.5 H (11.6-17.2) % Plt Count 373 (150-450) th/mm3 MPV 8.2 (7.0-11.0) fL Neut % (Auto) 86.2 H (16.0-70.0) % Lymph % (Auto) 7.2 L (9.0-44.0) % Weld % (Auto) 5.9 (0.0-8.0) % Eos % (Auto) 0.3 (0.0-4.0) % Baso % (Auto) 0.4 (0.0-2.0) % Neut # (Auto) 7.9 H (1.8-7.7) th/mm3 Lymph # (Auto) 0.7 L (1.0-4.8) th/mm3 Weld # (Auto) 0.5 (0.0-0.9) th/mm3 Eos # (Auto) 0.0 (0.0-0.4) th/mm3 Baso # (Auto) 0.0 (0.0-0.2) th/mm3 WBC Differential . Differential Comment Auto diff final Sodium 137 (136-145) meq/L Potassium 2.6 L* (3.5-5.1) meq/L Chloride 103 (98-107) meq/L Carbon Dioxide 23.7 (21.0-32.0) meq/L Anion Gap 10 (5-15) meq/L BUN 7 (7-18) mg/dL Creatinine 0.64 (0.50-1.00) mg/dL Estimated GFR Greater than 89 (>89) mL/min Random Glucose 150 H (74-106) mg/dL Calcium 9.3 (8.5-10.1) mg/dL Magnesium 1.8 (1.5-2.5) mg/dL Total Bilirubin 0.9 (0.2-1.0) mg/dL AST 41 H (15-37) U/L ALT 45 (10-53) U/L Alkaline Phosphatase 355 H (45-117) U/L Total Protein 7.4 (6.4-8.2) g/dL Albumin 2.9 L (3.4-5.0) g/dL Urine Color Yellow (Yellw/Straw) Urine Clarity Hazy H (Clear) Urine pH 6.0 (5.0-8.5) Ur Specific Prentice 1.008 (1.002-1.035) Urine Protein 30 H (Neg-Trace) mg/dL Urine Glucose (UA) Negative (Negative) mg/dL Urine Ketones Negative (Negative) mg/dL Urine Occult Blood Negative (Negative) Urine Nitrate Negative (Negative) Urine Bilirubin Negative (Negative) Urine Urobilinogen Less than 2 (Less than 2) mg/dL Ur Leukocyte Esterase Moderate H (Negative) Urine RBC 1 (0-3) /hpf Urine WBC 16 H (0-5) /hpf Ur Squamous Epith Cells 1 (0-5) /hpf Amorphous Sediment Rare H (None) /hpf Hyaline Casts 1 (0-3) /lpf Urine Mucus Few H (Occasional) /lpf Ur Microscopic Review Not Reportable Imaging Data Radiologist's impression: Chest X-Ray 03/01/18 04:25 CONCLUSION: 1. Right lung base airspace consolidation with possible volume loss. 2. Small right pleural effusion. Head CT 03/01/18 06:21 CONCLUSION: 1. No acute intracranial abnormality is identified. 2. There are 2 stable nonspecific sclerotic lesions within the right frontal bone. The more superior is associated with a cystic area that is new since the April 2017 examination. Etiology is uncertain but suggest attention to this at follow-up imaging. . Discharge Plan Discharge Disposition Patient Disposition: 30 Still Patient Discharge Details Diagnosis: Pneumonia, Acute UTI, Acute hypokalemia, Chest wall mass Physicians Team ED Provider: Wolf Moreno Primary Care Provider: Juan Van III Rxs /Orders / Referrals /Forms Prescriptions: No Action esomeprazole magnesium [Nexium] 40 mg Capsule,Delayed Release(Dr/Ec) 40 mg PO DAILY RF: 0 metoprolol succinate 50 mg Tablet Extended Release 24 Hr 50 mg PO DAILY Qty: 90 RF: 3 torsemide 10 mg Tablet 10 mg PO BID Qty: 60 RF: 11 losartan 25 mg Tablet 25 mg PO DAILY Qty: 30 RF: 11 acetaminophen 500 mg capsule 500 mg PO QID PRN (Reason: pain) Qty: 100 RF: 0 alprazolam [Xanax] 0.25 mg Tablet 0.25 mg PO BID PRN (Reason: Anxiety) RF: 0 oxycodone [OxyContin] 10 mg Tablet,Oral Only,Ext.Rel.12 Hr 10 mg PO Q12H RF: 0 Discharge Interventions Interventions: Vital Signs Last Done: 03/01/18 07:01 Status ED Status: With Doctor
[2018-03-01 05:58] LABS: Amorphous Sediment,Urine Rare /hpf; Bilirubin,Urine Negative (Negative); Clarity,Urine Hazy (Clear); Color,Urine Yellow (Yellw/Straw); Glucose,Urine (UA) Negative (Negative); Hyaline Casts,Urine 1 /lpf (0-3); Leukocyte Esterase,Urine Moderate (Negative); Mucus,Urine Few /lpf (Occasional); Nitrite,Urine Negative (Negative); Specific Gravity,Urine 1.008 (1.002-1.035); Squamous Epithelial Cell,Urine 1 /hpf (0-5)
[2018-03-01] MEDS ORDERED: Sod Chloride 0.9% Inj 1,000 ML IV.SIG SCH (06:30)
[2018-03-01 06:32] LABS: Baso % (Auto) 0.4 % (0.0-2.0); Eos % (Auto) 0.3 % (0.0-4.0); Hematocrit 33.2 % (35.0-46.0); Hemoglobin 11.3 gm/dL (11.6-15.3); Lymph # (Auto) 0.7 th/mm3 (1.0-4.8); Lymph % (Auto) 7.2 % (9.0-44.0); Mean Corpuscular Hemoglobin 28.3 pg (27.0-34.0); Mean Corpuscular Volume 83.4 fL (80.0-100.0); Mean Platelet Volume 8.2 fL (7.0-11.0); Mono # (Auto) 0.5 th/mm3 (0.0-0.9); Mono % (Auto) 5.9 % (0.0-8.0); Neut # (Auto) 7.9 th/mm3 (1.8-7.7); Neut % (Auto) 86.2 % (16.0-70.0); Platelet Count 373 th/mm3 (150-450); Red Blood Count 3.98 mil/mm3 (4.00-5.30); Red Cell Distribution Width 17.5 % (11.6-17.2); White Blood Count 9.2 th/mm3 (4.0-11.0)
--- NOTE | 2018-03-01 06:48 | CT ---
EXAM DATE: 03/01/2018 6:34 AM EST AGE/SEX: 62 years / Female INDICATIONS: Altered mental status. CLINICAL DATA: This is the patient's initial encounter. Patient reports that signs and symptoms have been present for 1 day and indicates a pain score of 0/10. MEDICAL/SURGICAL HISTORY: Carcinoma, lung. Carcinoma, bone. Hypertension. Liver cancer. Hystere ctomy. RADIATION DOSE: 56.35 CTDI (mGy) COMPARISON: [facility], CT HEAD W/O CONTRAST, 02/22/2018. [facility], CT BRAIN W/O CONTRAST, 04/26/2017. . TECHNIQUE: CT of the head without contrast. Using automated exposure control and adjustment of the mA and/or kV according to patient size, radiation dose was kept as low as reasonably achievable to ob tain optimal diagnostic quality images. DICOM format image data is available electronically for revi ew and comparison. FINDINGS: Cerebrum: The ventricles are normal. There is mild generalized atrophy similar to the prior study. N o midline shift, mass lesion, hemorrhage or acute infarction. No extraaxial fluid collections are se en. Posterior Fossa: The cerebellum and brainstem demonstrate no acute abnormality. The 4th ventricle is midline. The cerebellopontine angle is within normal limits. Extracranial: There is mucoperiosteal thickening in the left maxillary antrum. The remaining visuali zed sinuses are clear. There is a stable subcutaneous nodule in the posterior cervical region measuri ng 8 mm and likely representing a sebaceous cyst. Skull: No skull fracture. There are stable sclerotic foci in the right frontal bone. The more superi or is associated with a cystic area. CONCLUSION: 1. No acute intracranial abnormality is identified. 2. There are 2 stable nonspecific sclerotic lesions within the right frontal bone. The more superior is associated with a cystic area that is new since the April 2017 examination. Etiology is uncerta in but suggest attention to this at follow-up imaging. . Electronically signed by: Isrrael Hernández MD 03/01/2018 6:47 AM EST
--- NOTE | 2018-03-01 06:50 | XR ---
EXAM DATE: 03/01/2018 6:45 AM EST AGE/SEX: 62 years / Female INDICATIONS: Altered mental status. CLINICAL DATA: This is the patient's initial encounter. Patient reports that signs and symptoms have been present for 1 day and indicates a pain score of 0/10. MEDICAL/SURGICAL HISTORY: Carcinoma, bone. Carcinoma, lung. Hypertension. Liver cancer. Hys terectomy. COMPARISON: [facility], CHEST 1V SINGLE AP, 11/30/2017. . FINDINGS: Portable AP view of the chest demonstrates cardiac silhouette size at the upper limits for normal. Pa tient is rotated and underinflated and there is airspace opacity at the right lung base with possible volume loss. There is blunting of the right costophrenic sulcus. Mild streaky opacity is present at the left lung base. No pneumothorax is identified. Bones demonstrate no acute finding. CONCLUSION: 1. Right lung base airspace consolidation with possible volume loss. 2. Small right pleural effusion. Electronically signed by: Isrrael Hernández MD 03/01/2018 6:49 AM EST
[2018-03-01 07:01] LABS: Alanine Aminotransferase 45 U/L (10-53); Albumin 2.9 g/dL (3.4-5.0); Alkaline Phosphatase 355 U/L (45-117); Anion Gap 10 meq/L (5-15); Aspartate Aminotransferase 41 U/L (15-37); Blood Urea Nitrogen 7 mg/dL (7-18); Calcium 9.3 mg/dL (8.5-10.1); Carbon Dioxide 23.7 meq/L (21.0-32.0); Chloride 103 meq/L (98-107); Glomerular Filtration Rate Greater Than 89 mL/min (>89); Glucose,Random 150 mg/dL (74-106); Magnesium 1.8 mg/dL (1.5-2.5); Sodium 137 meq/L (136-145); Total Protein 7.4 g/dL (6.4-8.2)
[2018-03-01 07:04] LABS: Potassium 2.6 meq/L (3.5-5.1)
[2018-03-01] MEDS ORDERED: Potassium Chlor 20 mEq Premix 20 MEQ/100 ML PIGGYBACK IV.SIG ONE (07:14)
[2018-03-01] MEDS ORDERED: Azithromycin Inj 500 MG in Sodium Chlor 0.9% Inj 250 ML IV.SIG ONE (07:21)
--- NOTE | 2018-03-01 08:42 | CT ---
EXAM DATE: 03/01/2018 8:30 AM EST AGE/SEX: 62 years / Female INDICATIONS: Mass left chest. Confusion CLINICAL DATA: This is the patient's initial encounter. Patient reports that signs and symptoms have been present for 1 day and indicates a pain score of Nonresponsive. MEDICAL/SURGICAL HISTORY: Carcinoma, lung. Ca liver Hysterectomy. RADIATION DOSE: 5.15 CTDI (mGy) COMPARISON: [facility], CT CHEST W/O CONTRAST, 09/19/2016. . TECHNIQUE: Multiple contiguous axial images were obtained through the chest during bolus infusion of 75ml ml Omnipaque 350 (iohexol) nonionic water-soluble contrast as a single exam dose. Images wer e obtained in suspended respiration using multiple row detector helical technique. Using automated e xposure control and adjustment of the mA and/or kV according to patient size, radiation dose was kept as low as reasonably achievable to obtain optimal diagnostic quality images. DICOM format image shravan a is available electronically for review and comparison. FINDINGS: Lungs: Stable pleural and parenchymal changes are again noted in the right lung base. This is not si gnificantly changed compared to the prior CT scan. There is a nonspecific pleural-based pulmonary nod ule measuring 5 mm along the left midlung. There are stable chronic changes also noted in the left dmitry ng base. Otherwise, the rest of the lung mijares are grossly clear. No new infiltrates are demonstrate d. Mediastinum: There is been overall increase in the mediastinal adenopathy especially along the right paratracheal margin compared to the prior examination. The heart size is enlarged. Pleurae: New small right pleural effusion. No left-sided pleural effusion. Axillae: Unremarkable. Bony Structures: Stable degenerative changes. Miscellaneous: New extensive liver metastatic disease. CONCLUSION: 1. New extensive liver metastatic disease. 2. Increasing mediastinal adenopathy compared to the prior study. 3. Stable pleural-parenchymal changes are noted in both lung bases, right greater than left. 4. Single new 5 mm pulmonary nodule left midlung. Electronically signed by: Sean Roman MD 03/01/2018 8:40 AM EST
--- NOTE | 2018-03-01 09:01 | P.HPFP ---
History of Present Illness Primary Care Physician: Juan Van III, MD <Amilcar Baig - 03/03/18 14:10> Juan Van III, MD <Gil Mensah - 03/01/18 09:01> Chief Complaint: Altered Mental Status and UTI <Gil Mensah - 17:44> History of Present Illness: She is a 62-year-old female with history of dementia and recurrent UTIs as well as carcinoid tumor presents today with altered mental status and UTI. She has no family currently in the room to aid in history giving and her history is limited secondary to her mental status. She states that we are trying to manipulate her and does not want to answer questions. She does know that she had some sort of tumor, but cannot tell us what type. She does state that it was removed, but does not know when. When asked about her medical and surgical history she is unable to tell us any more information. She is unable to confirm her medication she is taking. She has a mass in her left chest wall, she is unsure of how long it has been there. She does state that it causes her some pain. Through chart review we know that she has a carcinoid tumor. Her daughter stated that she was on chemotherapy for this during her ED visit on 02/10. At that time she had generalized weakness She denies headache, nausea, vomiting, chest pain, palpitations, shortness of breath, abdominal pain, change in bowel habits, increased frequency of urination or burning with urination. <Gil Mensah - 03/01/18 15:18> - Diagnosis (1) Acute UTI (2) Acute hypokalemia (3) Altered mental status (4) Metastatic carcinoid tumor <Gil Mensah 03/01/18 17:41> (1) Stroke (2) Acute UTI (3) Acute hypokalemia (4) Altered mental status (5) Metastatic carcinoid tumor (6) Hypertension <Amilcar Baig - 03/03/18 14:10> Inpatient Certification: I certify that the inpatient services were ordered in accordance with Medicare regulations governing the order. This includes certification that hospital inpatient services are reasonable and necessary and in the case of services not specified as inpatient-only under 42 CFR 419.22(n), that they are appropriately provided as inpatient services in accordance to with the 2-midnight benchmark under 43 CFR 412.3(e) <Amilcar Baig - 03/03/18 14:10> Review of Systems All other systems reviewed negative except as stated in HPI, unobtainable due to mental condition <Gil Mensah 03/01/18 15:18> PMFSH - History History Provided By: Patient <Gil Mensah 03/01/18 09:01> - Medical / Surgical Hx Neg / Unobtainable Medical Problems Denied: Unable to Obtain <Gil Mensah 03/01/18 15: 18> Surgical History: Unable to Obtain <Gil Mensah 03/01/18 15:18> - Medical History Medical History: Medical History (Last Updated 03/01/18 @ 03:54 by Imelda Arce, JAS) Hx of malignant neoplasm of bone (Acute) History of high cholesterol (Acute) Hx of primary hypertension (Acute) Hx of hysterectomy (Acute) Liver cancer Lung cancer <Amilcar Baig - 03/03/18 14:10> Medical History (Last Updated 03/01/18 @ 03:54 by Imelda Arce, JAS) Hx of malignant neoplasm of bone (Acute) History of high cholesterol (Acute) Hx of primary hypertension (Acute) Hx of hysterectomy (Acute) Liver cancer Lung cancer <Gil Mensah 03/01/18 09:01> - Surgical History Surgical History: Surgical History (Last Reviewed 02/22/18 @ 19:09 by Festus Echevarria MD) History of total left knee replacement (Acute) <Amilcar Baig - 03/03/18 14:10> Surgical History (Last Reviewed 02/22/18 @ 19:09 by Festus Echevarria MD) History of total left knee replacement (Acute) <Gil Mensah 03/01/18 09:01> - Tobacco History Second Hand Smoke Exposure: No <Gil Mensah 03/01/18 09:01> Smoking Status: Never smoker <Gil Mensah 03/01/18 09:01> - Alcohol History How Often Do You Have a Drink Containing Alcohol: Never <Gil Mensah - 03/01/18 09:01> - Substance Use History Substance History: No History of Abuse <Gil Mensah - 03/01/18 09:01> - Travel History Recent Travel in the [facility] Within the Last 8 Weeks: No <Gil Mensah - 03/01/18 09:01> Recent Travel Out of the Country Within the Last 8 Weeks: No <Gil Mensah - 03/01/18 09:01> - Immunization History Tetanus Immunization: >5 Years <Gil Mensah - 03/01/18 09:01> Medications and Allergies Allergies Allergy/AdvReac Type Severity Reaction Status Date / Time amitriptyline AdvReac Severe PT STATES Verified 02/22/18 18:42 "KEEPS ME FROM URINATING" aspirin AdvReac Severe RINGING Verified 02/22/18 18:42 EARS clonazepam AdvReac Severe RINGING IN Verified 02/22/18 18:42 EARS clorazepate dipotassium AdvReac Severe RINGING IN Verified 02/22/18 18:42 EARS cyclobenzaprine AdvReac Severe EARS Verified 02/22/18 18:42 RINGING diazepam AdvReac Severe RINGING IN Verified 02/22/18 18:42 EARS lorazepam AdvReac Severe RINGING IN Verified 02/22/18 18:42 EARS midazolam AdvReac Severe RINGING IN Verified 02/22/18 18:42 EARS oxazepam AdvReac Severe RINGING IN Verified 02/22/18 18:42 EARS temazepam AdvReac Severe RINGING IN Verified 02/22/18 18:42 EARS mucinex AdvReac Intermediate Hives Uncoded 02/22/18 18:42 <Amilcar Baig - 03/03/18 14:10> Home Medications Medication Instructions Recorded Confirmed Type alprazolam [Xanax] 0.25 mg PO BID PRN 11/30/17 03/01/18 History oxycodone [OxyContin] 10 mg PO Q12H 11/30/17 03/01/18 History esomeprazole magnesium [Nexium] 40 mg PO DAILY 12/01/17 03/01/18 History <Amilcar Baig - 03/03/18 14:10> Active Medications: Active Medications Acetaminophen (Tylenol) 650 mg PO Q4H PRN PRN Reason: Temp > 100.4 Amlodipine Besylate (Norvasc) 5 mg PO DAILY [facility] Last Admin: 03/03/18 08:36 Dose: 5 mg Aspirin (Aspirin Supp) 300 mg RECTAL DAILY [facility] Last Admin: 03/03/18 10:50 Dose: 300 mg Chlorhexidine Gluconate (Chlorhexidine 2% Cloth) 3 pack TOPICAL DAILY@0400 [facility] Stop: 03/09/18 03:59 Chlorhexidine Gluconate (Chlorhexidine 2% Cloth) 3 pack TOPICAL DAILY@0400 PRN PRN Reason: Extra cloth needed Stop: 03/09/18 03:59 Enoxaparin Sodium (Lovenox Inj) 40 mg SQ Q24H [facility] Last Admin: 03/03/18 10:50 Dose: 40 mg Potassium Chloride/Sodium Chloride (Ns + Kcl 20 Meq Inj) 1,000 mls @ 100 mls/ hr IV.CONT .Q10H [facility] Last Admin: 03/03/18 13:33 Dose: 100 mls/hr Labetalol HCl (Trandate Inj) 5 mg IV.PUSH Q4H PRN PRN Reason: BLOOD PRESSURE MANAGEMENT Ondansetron HCl (Zofran Inj) 4 mg IV.PUSH Q6H PRN PRN Reason: NAUSEA OR VOMITING Pantoprazole Sodium (Protonix) 20 mg PO DAILY [facility] Last Admin: 03/03/18 08:36 Dose: 20 mg Sodium Chloride (Ns Flush) 2 ml IV.FLUSH BID [facility] Last Admin: 03/03/18 08:36 Dose: 2 ml Sodium Chloride (Ns Flush) 2 ml IV.FLUSH PRN PRN PRN Reason: FLUSH AFTER USING IV ACCESS <Amilcar Baig - 03/03/18 14:10> Active Medications Potassium Chloride (Kcl 20 Meq Premix Inj) 20 meq in 100 mls @ 50 mls/hr IV.SIG ONCE ONE Stop: 03/01/18 09:13 Last Admin: 03/01/18 07:45 Dose: 50 mls/hr Sodium Chloride (Ns Flush) 2 ml IV.FLUSH PRN PRN PRN Reason: FLUSH AFTER USING IV ACCESS Last Admin: 03/01/18 07:46 Dose: 2 ml <Gil Mensah 03/01/18 09:01> Exam Vital signs: Vital Signs 03/02/18 16:00 03/02/18 19:11 03/02/18 20:00 Temperature 99.3 F 97.9 F Pulse Rate 125 H 107 H 108 H Respiratory Rate 20 18 Blood Pressure 148/92 H 119/81 Pulse Oximetry 96 96 03/03/18 00:00 03/03/18 04:00 03/03/18 08:00 Temperature 97.3 F L 97.7 F Pulse Rate 119 H 118 H 130 H Respiratory Rate 18 22 Blood Pressure 146/98 H 154/107 H Pulse Oximetry 97 87 L 03/03/18 10:07 03/03/18 10:11 03/03/18 10:17 Temperature Pulse Rate 133 H 137 H Respiratory Rate 30 H 29 H Blood Pressure 172/115 H Pulse Oximetry 94 L 93 L 98 03/03/18 10:36 03/03/18 11:00 03/03/18 11:30 Temperature Pulse Rate 110 H 120 H 122 H Respiratory Rate 33 H 34 H 37 H Blood Pressure 135/97 H 144/105 H 144/94 H Pulse Oximetry 93 L 91 L 94 L 03/03/18 12:00 Temperature 98.8 F Pulse Rate 124 H Respiratory Rate 34 H Blood Pressure 152/96 H Pulse Oximetry 94 L Intake & Output 03/02/18 03/03/18 03/03/18 18:59 06:59 18:59 Intake Total 1084 / 1084 680 / 680 30 / 30 Balance 1084 / 1084 680 / 680 30 / 30 Weight 67 kg Intake: IV 844 / 844 200 / 200 30 / 30 NS Inj 1,000 ML @ 100 mls/hr IV 844 / 844 .CONT .Q10H [facility] Rx#:[id number] KCl 20 mEq Premix Inj 20 meq In 200 / 200 30 / 30 100 ml @ 50 mls/hr IV.SIG ONCE ONE Rx#:[id number] Oral 240 / 240 480 / 480 Other: # Voids 2 2 # Bowel Movements 1 <Amilcar Baig - 03/03/18 14:10> Vital Signs 03/01/18 03:43 03/01/18 03:52 03/01/18 04:25 Temperature 98.9 F Pulse Rate 122 H Respiratory Rate 16 18 Blood Pressure 138/103 H Pulse Oximetry 100 98 03/01/18 07:01 03/01/18 07:14 Temperature Pulse Rate 111 H Respiratory Rate Blood Pressure Pulse Oximetry 98 99 Intake & Output 02/28/18 03/01/18 03/01/18 18:59 06:59 18:59 Intake Total 1350 / 1350 Balance 1350 / 1350 Weight 78 kg Intake: IV 1350 / 1350 Azithromycin Inj 500 MG In NS 250 / 250 Inj 250 ML @ 250 mls/hr IV.SIG ONCE ONE Rx#:[id number] NS Inj 1,000 ML @ 1000 mls/hr 1000 / 1000 IV.SIG BOLUS [facility] Rx#:[id number] Rocephin Inj 1,000 MG In NS Inj 100 / 100 100 ML @ 200 mls/hr IV.SIG ONCE ONE Rx#:[id number] <Gil Mensah - 03/01/18 09:01> Narrative: General: Well-developed, and in no acute distress. Appears stated age. She is lethargic, but arousable, confused, and does not respond appropriately to most questions. She is oriented to person and time, however mumbles incoherently when asked where she is. HEENT: Atraumatic, moist mucous membranes Neck: Supple, non-tender without masses or lymphadenopathy, trachea midline Cardiac: Regular rate and rhythm without murmur Pulmonary: Non-labored breathing. Lungs clear to auscultation bilaterally with good air movement. There is a palpable hard, tender mass in the left chest wall. Abdomen: Normal bowel sounds, non-tender without rebound or guarding, there is a palpable mass in the right upper quadrant. Extremities: 2+ pedal pulses, capillary refill less than 2 seconds Skin: Small, stage I sacral ulcer <Gil Mensah - 03/01/18 15:18> Results - Labs Result diagrams: 03/03/18 10:42 03/03/18 10:42 <Amilcar Baig - 03/03/18 14:10> Abnormal lab results 03/02/18 03/02/18 03/02/18 Range/Units 15:56 15:56 17:35 Hgb (11.6-15.3) gm/dL Hct (35.0-46.0) % RDW (11.6-17.2) % Neut % (Auto) (16.0-70.0) % Lymph % (Auto) (9.0-44.0) % Neut # (Auto) (1.8-7.7) th/mm3 Lymph # (Auto) (1.0-4.8) th/mm3 Platelet Morphology (Normal) APTT (23.4-31.7) sec Potassium 2.9 L* (3.5-5.1) meq/L Chloride 111 H (98-107) meq/L BUN (7-18) mg/dL Estimated GFR 82 L (>89) mL/min POC Glucose 128 H (68-110) mg/dl Random Glucose 150 H (74-106) mg/dL Calcium 8.2 L (8.5-10.1) mg/dL Magnesium 1.4 L (1.5-2.5) mg/dL Troponin I (0.02-0.05) ng/mL MTS Gel Crossmatch 03/03/18 03/03/18 03/03/18 Range/Units 04:30 04:30 09:04 Hgb 11.2 L (11.6-15.3) gm/dL Hct 34.0 L (35.0-46.0) % RDW 17.7 H (11.6-17.2) % Neut % (Auto) 78.5 H (16.0-70.0) % Lymph % (Auto) (9.0-44.0) % Neut # (Auto) (1.8-7.7) th/mm3 Lymph # (Auto) (1.0-4.8) th/mm3 Platelet Morphology (Normal) APTT (23.4-31.7) sec Potassium 3.2 L (3.5-5.1) meq/L Chloride 112 H (98-107) meq/L BUN 6 L (7-18) mg/dL Estimated GFR (>89) mL/min POC Glucose 161 H (68-110) mg/dl Random Glucose 134 H (74-106) mg/dL Calcium (8.5-10.1) mg/dL Magnesium (1.5-2.5) mg/dL Troponin I (0.02-0.05) ng/mL MTS Gel Crossmatch 03/03/18 03/03/18 03/03/18 Range/Units 10:25 10:42 10:42 Hgb (11.6-15.3) gm/dL Hct (35.0-46.0) % RDW 18.6 H (11.6-17.2) % Neut % (Auto) 90.9 H (16.0-70.0) % Lymph % (Auto) 3.7 L (9.0-44.0) % Neut # (Auto) 9.7 H (1.8-7.7) th/mm3 Lymph # (Auto) 0.4 L (1.0-4.8) th/mm3 Platelet Morphology Clumped H (Normal) APTT (23.4-31.7) sec Potassium (3.5-5.1) meq/L Chloride (98-107) meq/L BUN (7-18) mg/dL Estimated GFR (>89) mL/min POC Glucose (68-110) mg/dl Random Glucose (74-106) mg/dL Calcium (8.5-10.1) mg/dL Magnesium (1.5-2.5) mg/dL Troponin I 0.09 H (0.02-0.05) ng/mL MTS Gel Crossmatch See Detail 03/03/18 03/03/18 Range/Units 10:42 10:42 Hgb (11.6-15.3) gm/dL Hct (35.0-46.0) % RDW (11.6-17.2) % Neut % (Auto) (16.0-70.0) % Lymph % (Auto) (9.0-44.0) % Neut # (Auto) (1.8-7.7) th/mm3 Lymph # (Auto) (1.0-4.8) th/mm3 Platelet Morphology (Normal) APTT 23.1 L (23.4-31.7) sec Potassium 3.4 L (3.5-5.1) meq/L Chloride 113 H (98-107) meq/L BUN (7-18) mg/dL Estimated GFR 85 L (>89) mL/min POC Glucose (68-110) mg/dl Random Glucose 152 H (74-106) mg/dL Calcium (8.5-10.1) mg/dL Magnesium (1.5-2.5) mg/dL Troponin I (0.02-0.05) ng/mL MTS Gel Crossmatch Short CBC 03/03/18 03/03/18 Range/Units 04:30 10:42 WBC 8.7 10.7 (4.0-11.0) th/mm3 Hgb 11.2 L 12.9 (11.6-15.3) gm/dL Hct 34.0 L 39.6 (35.0-46.0) % Plt Count 374 233 D (150-450) th/mm3 BMP 03/02/18 03/03/18 03/03/18 15:56 04:30 10:42 Sodium 142 143 144 Potassium 2.9 L* 3.2 L 3.4 L Chloride 111 H 112 H 113 H Carbon Dioxide 22.6 21.8 21.2 BUN 8 6 L 8 Creatinine 0.85 0.77 0.83 Calcium 8.2 L 8.7 9.2 Cardiac Enzymes 03/03/18 03/03/18 Range/Units 10:42 10:42 Total Creatine Kinase 61 (26-192) U/L Troponin I 0.09 H (0.02-0.05) ng/mL <Amilcar Baig - 03/03/18 14:10> Abnormal lab results 03/01/18 03/01/18 03/01/18 Range/Units 04:15 06:10 06:10 RBC 3.98 L (4.00-5.30) mil/mm3 Hgb 11.3 L (11.6-15.3) gm/dL Hct 33.2 L (35.0-46.0) % RDW 17.5 H (11.6-17.2) % Neut % (Auto) 86.2 H (16.0-70.0) % Lymph % (Auto) 7.2 L (9.0-44.0) % Neut # (Auto) 7.9 H (1.8-7.7) th/mm3 Lymph # (Auto) 0.7 L (1.0-4.8) th/mm3 Potassium 2.6 L* (3.5-5.1) meq/L Random Glucose 150 H (74-106) mg/dL AST 41 H (15-37) U/L Alkaline Phosphatase 355 H (45-117) U/L Albumin 2.9 L (3.4-5.0) g/dL Urine Clarity Hazy H (Clear) Urine Protein 30 H (Neg-Trace) mg/dL Ur Leukocyte Esterase Moderate H (Negative) Urine WBC 16 H (0-5) /hpf Amorphous Sediment Rare H (None) /hpf Urine Mucus Few H (Occasional) /lpf Short CBC 03/01/18 Range/Units 06:10 WBC 9.2 (4.0-11.0) th/mm3 Hgb 11.3 L (11.6-15.3) gm/dL Hct 33.2 L (35.0-46.0) % Plt Count 373 (150-450) th/mm3 BMP 03/01/18 06:10 Sodium 137 Potassium 2.6 L* Chloride 103 Carbon Dioxide 23.7 BUN 7 Creatinine 0.64 Calcium 9.3 Liver Function 03/01/18 Range/Units 06:10 Total Bilirubin 0.9 (0.2-1.0) mg/dL AST 41 H (15-37) U/L ALT 45 (10-53) U/L Alkaline Phosphatase 355 H (45-117) U/L Albumin 2.9 L (3.4-5.0) g/dL Urine 03/01/18 Range/Units 04:15 Urine Color Yellow (Yellw/Straw) Urine Clarity Hazy H (Clear) Urine pH 6.0 (5.0-8.5) Ur Specific [place] 1.008 (1.002-1.035) Urine Protein 30 H (Neg-Trace) mg/dL Urine Glucose (UA) Negative (Negative) mg/dL <Gil Mensah - 03/01/18 09:01> - Imaging Impressions Chest X-Ray 03/03/18 00:00 CONCLUSION: 1. Increased opacity in the right hemithorax representing a large pleural effusion with associated consolidation and atelectasis. 2. There are also new interstitial changes in the left lung and today's CT demonstrated a new left pleural effusion. Head CT 03/03/18 09:38 CONCLUSION: 1. No focal or acute intracranial hemorrhage. 2. No significant change compared to the prior examination. Report was called by [ Dr. Roman to Dr. Quiroz at 9:52 AM] Head CTA 03/03/18 09:38 CONCLUSION: 1. Unremarkable CTA of the brain. Report was called by [Dr. Roman to Dr. Quiroz at 10:11 AM. ] Neck CTA 03/03/18 09:38 CONCLUSION: 1. No acute abnormality is identified within the neck arterial vasculature. 2. Lymphadenopathy in the mediastinum and supraclavicular regions bilaterally unchanged from the prior chest CT from 2 days ago. However, the right pleural effusion has increased in volume and the left pleural effusion is new. <Amilcar Baig - 03/03/18 14:10> Impressions Chest X-Ray 03/01/18 04:25 CONCLUSION: 1. Right lung base airspace consolidation with possible volume loss. 2. Small right pleural effusion. Head CT 03/01/18 06:21 CONCLUSION: 1. No acute intracranial abnormality is identified. 2. There are 2 stable nonspecific sclerotic lesions within the right frontal bone. The more superior is associated with a cystic area that is new since the April 2017 examination. Etiology is uncertain but suggest attention to this at follow-up imaging. . Chest CT 03/01/18 07:34 CONCLUSION: 1. New extensive liver metastatic disease. 2. Increasing mediastinal adenopathy compared to the prior study. 3. Stable pleural-parenchymal changes are noted in both lung bases, right greater than left. 4. Single new 5 mm pulmonary nodule left midlung. <Gil Mensah - 03/01/18 09:01> Caprini VTE Risk Assessment Caprini VTE Risk Assessment: Moderate/High Risk (score >= 2) <Gil Mensah - 03/01/18 15:18> Caprini Risk Assessment Model: Point Value = 1 Point Value = 2 Point Value = 3 Point Value = 5 Age 41-60 Minor surgery BMI > 25 kg/m2 Swollen legs Varicose veins or History of unexplained or recurrent spontaneous Oral contraceptives or hormone replacement Sepsis (< 1 month) Serious lung disease, including pneumonia (< 1 month) Abnormal pulmonary function Acute myocardial infarction Congestive heart failure (< 1 month) History of inflammatory bowel disease Medical patient at bed rest Age 61-74 Arthroscopic surgery Major open surgery (> 45 min) Laparoscopic surgery (> 45 min) Malignancy Confined to bed (> 72 hours) Immobilizing plaster cast Central venous access Age >= 75 History of VTE Family history of VTE Factor V Leiden Prothrombin [id number] Lupus anticoagulant Anticardiolipin antibodies Elevated serum homocysteine Heparin-induced thrombocytopenia Other congenital or acquired thrombophilia Stroke (< 1 month) Elective arthroplasty Hip, pelvis, or leg fracture Acute spinal cord injury (< 1 month) <Amilcar Baig - 03/03/18 14:10> Point Value = 1 Point Value = 2 Point Value = 3 Point Value = 5 Age 41-60 Minor surgery BMI > 25 kg/m2 Swollen legs Varicose veins or History of unexplained or recurrent spontaneous Oral contraceptives or hormone replacement Sepsis (< 1 month) Serious lung disease, including pneumonia (< 1 month) Abnormal pulmonary function Acute myocardial infarction Congestive heart failure (< 1 month) History of inflammatory bowel disease Medical patient at bed rest Age 61-74 Arthroscopic surgery Major open surgery (> 45 min) Laparoscopic surgery (> 45 min) Malignancy Confined to bed (> 72 hours) Immobilizing plaster cast Central venous access Age >= 75 History of VTE Family history of VTE Factor V Leiden Prothrombin [id number] Lupus anticoagulant Anticardiolipin antibodies Elevated serum homocysteine Heparin-induced thrombocytopenia Other congenital or acquired thrombophilia Stroke (< 1 month) Elective arthroplasty Hip, pelvis, or leg fracture Acute spinal cord injury (< 1 month) <Gil Mensah - 03/01/18 09:01> Prophylaxis Regimen: Total Risk Factor Score Risk Level Prophylaxis Regimen 0-1 Low Early ambulation 2 Moderate Order ONE of the following: *Sequential Compression Device (SCD) *Heparin 5000 units SQ BID 3-4 Higher Order ONE of the following medications: *Heparin 5000 units SQ TID *Enoxaparin/Lovenox 40 mg SQ daily (WT < 150 kg, CrCl > 30 mL/min) *Enoxaparin/Lovenox 30 mg SQ daily (WT < 150 kg, CrCl > 10-29 mL/min) *Enoxaparin/Lovenox 30 mg SQ BID (WT < 150 kg, CrCl > 30 mL/min) AND/OR *Sequential Compression Device (SCD) 5 or more Highest Order ONE of the following medications: *Heparin 5000 units SQ TID (Preferred with Epidurals) *Enoxaparin/Lovenox 40 mg SQ daily (WT < 150 kg, CrCl > 30 mL/min) *Enoxaparin/Lovenox 30 mg SQ daily (WT < 150 kg, CrCl > 10-29 mL/min) *Enoxaparin/Lovenox 30 mg SQ BID (WT < 150 kg, CrCl > 30 mL/min) AND *Sequential Compression Device (SCD) <Amilcar Baig - 03/03/18 14:10> Total Risk Factor Score Risk Level Prophylaxis Regimen 0-1 Low Early ambulation 2 Moderate Order ONE of the following: *Sequential Compression Device (SCD) *Heparin 5000 units SQ BID 3-4 Higher Order ONE of the following medications: *Heparin 5000 units SQ TID *Enoxaparin/Lovenox 40 mg SQ daily (WT < 150 kg, CrCl > 30 mL/min) *Enoxaparin/Lovenox 30 mg SQ daily (WT < 150 kg, CrCl > 10-29 mL/min) *Enoxaparin/Lovenox 30 mg SQ BID (WT < 150 kg, CrCl > 30 mL/min) AND/OR *Sequential Compression Device (SCD) 5 or more Highest Order ONE of the following medications: *Heparin 5000 units SQ TID (Preferred with Epidurals) *Enoxaparin/Lovenox 40 mg SQ daily (WT < 150 kg, CrCl > 30 mL/min) *Enoxaparin/Lovenox 30 mg SQ daily (WT < 150 kg, CrCl > 10-29 mL/min) *Enoxaparin/Lovenox 30 mg SQ BID (WT < 150 kg, CrCl > 30 mL/min) AND *Sequential Compression Device (SCD) <Gil Mensah - 03/01/18 09:01> Assessment and Plan - Assessment (1) Acute UTI Code(s): N39.0 - Urinary tract infection, site not specified Status: Acute (2) Acute hypokalemia Code(s): E87.6 - Hypokalemia Status: Acute (3) Altered mental status Code(s): R41.82 - Altered mental status, unspecified Status: Acute (4) Metastatic carcinoid tumor Code(s): C7B.00 - Secondary carcinoid tumors, unspecified site Status: Acute <Gil Mensah - 03/01/18 17:41> (1) Stroke Code(s): I63.9 - Cerebral infarction, unspecified Status: Acute (2) Acute UTI Code(s): N39.0 - Urinary tract infection, site not specified Status: Acute (3) Acute hypokalemia Code(s): E87.6 - Hypokalemia Status: Acute (4) Altered mental status Code(s): R41.82 - Altered mental status, unspecified Status: Acute (5) Metastatic carcinoid tumor Code(s): C7B.00 - Secondary carcinoid tumors, unspecified site Status: Acute (6) Hypertension Code(s): I10 - Essential (primary) hypertension Status: Acute <BaigAmilcar - 03/03/18 14:10> - Assessment and Plan Patient is a 62-year-old female with a history of malignancy and altered mental status, possibly secondary to urinary tract infection. Infectious disease: Acute UTI -She denies any dysuria, however her urinalysis showed moderate leukocyte esterase, protein, and pyuria -This may be a cause of her altered mental status, however we are unsure of her baseline mental status -She was given a dose of Rocephin and azithromycin in the ED. The azithromycin was due to suspicion that she had pneumonia. Her chest x-ray does show consolidation, especially in the right lower lung, however CT of the chest shows stable pleuralparenchymal changes to the bilateral lung bases and her respiratory status is stable. It is unlikely that she has pneumonia at this point. -Continue Rocephin 1 g every 12 hours. Discontinue azithromycin. Altered mental status: -The etiology and chronicity of this is unclear -Per chart review it seems like this is worse today than normal -It may be related to UTI, however it may be related to her malignancy -She has been combative with the nurses in the ED and received 5 mg of Haldol, 1 mg of Ativan, and 25 mg of Benadryl IM -When she arrived on the floor she was walking around the floor and going into other patient's rooms. 1 mg of p.o. Haldol was ordered. Metastatic carcinoid tumor -It is unclear when this is first diagnosed and which lesions are new. -She has sclerotic lesions in her frontal bone, a mass in her left chest wall, lesions and in her liver -We will get more history from her daughter when we are able to speak with her, further history from the patient is unobtainable due to her mental status at this time Hypokalemia -Potassium on admission was 2.6 -She was given 40 mEq p.o. and 20 mEq IV in the ED -Repeat potassium ordered, will monitor and replete as needed Fluids: Normal saline at 100 cc/h Electrolytes: monitor and replete as needed Nutrition: N.p.o. until cleared by bedside swallow GI prophylaxis: not indicated VTE prophylaxis: Lovenox subcu <Gil Mensah - 03/01/18 17:44> - Attending Attestation See the residents documentation for details. I saw and evaluated the patient regarding the massey portions of this evaluation and agree with the residents findings and plans as written. Parts of this note were created using [employer] voice recognition software program. While efforts were made to correct any mistakes made by this software, some mistakes, errors, and omissions may remain in the final note that were not caught when the note was originally created. Plan of care was discussed and agreed upon with the patient as specifically documented in the above note. An opportunity to ask questions with explanation was provided. Patient voiced understanding on all information reviewed and discussed. <Amilcar Baig - 03/03/18 14:10>
[2018-03-01] MEDS ORDERED: Acetaminophen 325 MG Tablet PO PRN (10:46)
[2018-03-01] MEDS: Enoxaparin Inj 40 MG/0.4 ML Syringe SQ SCH (12:36)
--- NOTE | 2018-03-01 14:40 | MB ---
cc: Mat Betancourt MD DATE: 03/01/2018 ATTENDING PHYSICIAN: REASON FOR CONSULTATION: Oncology consult to render opinion on patient with a liver mass. HISTORY OF PRESENT ILLNESS: The patient is a 62-year-old female brought in to the emergency room by her daughter for altered mental status. The patient had a CT scan which showed multiple liver masses and mediastinal adenopathy. Oncology was consulted for further evaluation. The patient is very confused. She is not able to provide any history. There is no family member at the bedside. I talked to the nursing staff; the daughter had left and there is no contact number. The patient is not oriented to place. She, however, stated that she knew that she has cancer and showed me a tumor on her left chest wall. She could not tell me if she ever had biopsy or treatment for her cancer. She denies any chest pressure or palpitations. She denied shortness of breath or cough. She denies headache or focal weakness. She denies any nausea or vomiting. She denies any abdominal pain. PAST MEDICAL HISTORY: Dementia, recurrent urinary tract infection, hyperlipidemia, hypertension, possible liver and lung cancer. PAST SURGICAL HISTORY: Hysterectomy and left total knee arthroplasty. FAMILY HISTORY: She has 2 sons and 2 daughters. SOCIAL HISTORY: She denies tobacco or alcohol use. ALLERGIES: MULTIPLE ALLERGIES DOCUMENTED IN THE CHART. CURRENT MEDICATIONS: 1. Ceftriaxone. 2. Lovenox. Physical exam: General: Patient is confused and not oriented to place. She refused some part of the physical exam. HEENT: Atraumatic normocephalic. Pupils equal round reactive light. Oropharynx dry mucosa. Neck: No palpable mass. Cardiovascular: Regular S1-S2, no murmur. Lung: Clear to auscultation bilaterally. There is a large mass in the left chest wall which is a little tender. Abdomen: Patient refused exam Extremity: No significant edema noted Neuro: No focal deficit noted SkIn: No rash or petechia noted Musculoskeletal: No obvious deformity noted patient is ambulating without difficulty. ASSESSMENT AND PLAN: 1. Left chest wall mass with mediastinal adenopathy and multiple liver masses concerning for metastatic cancer. The patient not able to provide any history, and we could not contact any family members. The patient, however, knew that she had a left chest wall mass and stated that it has been there for a long time. It is unclear if she ever had a biopsy or treatment for her cancer. Review of her CT scan, there is a large mass in the left chest wall with destruction of her ribs. There are also multiple liver lesions consistent with metastatic disease. There was also mediastinal lymphadenopathy which has increased compared to previous CT scan. For now, we will need to get a history from the family and to see if they desire any diagnosis of treatment. If not, would recommend hospice care. The patient has dementia and likely is not a candidate for palliative treatment with chemotherapy. 2. Mental status change. I do not know her baseline mental status. CT of the head did not show any acute changes. There was a sclerotic lesion in the right frontal lobe noted, which could be a metastatic bone lesion. She appeared to have a urinary tract infection, currently on antibiotic. 3. Recurrent urinary tract infection, currently on antibiotics. 4. Hypertension. 5. Hyperlipidemia. RECOMMENDATIONS: We will need to get more history from family members, to see if they desire further workup or treatment for this cancer. If not, recommend hospice care. Thank you for asking me to see this patient. MD NINOSKA Bello/seble/tyler , 12:32 PM , 12:42 PM MARIA DEL ROSARIO
[2018-03-01] MEDS ORDERED: Haloperidol 1 MG Tablet PO ONE (14:45)
[2018-03-01] MEDS: Sod Chloride 0.9% Inj 1,000 ML IV.CONT SCH ×2 (15:51→20:43)
[2018-03-01 17:21] LABS: Anion Gap 9 meq/L (5-15); Blood Urea Nitrogen 7 mg/dL (7-18); Calcium 8.9 mg/dL (8.5-10.1); Carbon Dioxide 21.9 meq/L (21.0-32.0); Chloride 110 meq/L (98-107); Glomerular Filtration Rate Greater Than 89 mL/min (>89); Glucose,Random 122 mg/dL (74-106); Potassium 3.6 meq/L (3.5-5.1); Sodium 141 meq/L (136-145)
[2018-03-02] MEDS: Sod Chloride 0.9% Inj 1,000 ML IV.CONT SCH ×3 (02:24→12:24)
[2018-03-02 10:21] LABS: Baso # (Auto) 0.1 th/mm3 (0.0-0.2); Baso % (Auto) 1.4 % (0.0-2.0); Eos # (Auto) 0.1 th/mm3 (0.0-0.4); Eos % (Auto) 1.5 % (0.0-4.0); Hemoglobin 10.6 gm/dL (11.6-15.3); Lymph # (Auto) 0.7 th/mm3 (1.0-4.8); Lymph % (Auto) 10.4 % (9.0-44.0); Mean Corpuscular HGB Conc 32.2 % (32.0-36.0); Mean Corpuscular Hemoglobin 27.4 pg (27.0-34.0); Mean Corpuscular Volume 85.1 fL (80.0-100.0); Mean Platelet Volume 8.4 fL (7.0-11.0); Mono # (Auto) 0.7 th/mm3 (0.0-0.9); Mono % (Auto) 9.2 % (0.0-8.0); Neut # (Auto) 5.5 th/mm3 (1.8-7.7); Neut % (Auto) 77.5 % (16.0-70.0); Platelet Count 370 th/mm3 (150-450); Red Blood Count 3.87 mil/mm3 (4.00-5.30); White Blood Count 7.1 th/mm3 (4.0-11.0)
[2018-03-02 11:20] LABS: Anion Gap 9 meq/L (5-15); Blood Urea Nitrogen 8 mg/dL (7-18); Calcium 8.7 mg/dL (8.5-10.1); Carbon Dioxide 23.3 meq/L (21.0-32.0); Chloride 111 meq/L (98-107); Glomerular Filtration Rate Greater Than 89 mL/min (>89); Glucose,Random 135 mg/dL (74-106); Sodium 143 meq/L (136-145)
[2018-03-02 11:27] LABS: Potassium 2.9 meq/L (3.5-5.1)
[2018-03-02] MEDS ORDERED: Potassium Chloride 25 MEQ Effervescent Tablet PO ONE (11:43)
[2018-03-02] MEDS: Enoxaparin Inj 40 MG/0.4 ML Syringe SQ SCH (11:55)
--- NOTE | 2018-03-02 12:21 | P.PNONC ---
Subjective Interval history: Afebrile Pt reports she is feeling "good" today Answering mostly 1 word answers Seems to be more lucid today and is able to tell me the correct month, location and that Sergio Pratt is president. She reports she has had biopsies done at both [facility] and [place] Objective Vital Signs/Intake & Output: Vital Signs 03/01/18 16:00 03/01/18 20:00 03/01/18 20:47 Temperature 98.3 F 98.5 F Pulse Rate 107 H 113 H Respiratory Rate 20 18 Blood Pressure 123/86 138/85 Pulse Oximetry 99 98 98 03/02/18 00:00 03/02/18 04:00 03/02/18 08:00 Temperature 98.1 F 98.0 F 98.4 F Pulse Rate 105 H 109 H 90 Respiratory Rate 17 16 20 Blood Pressure 159/88 H 136/84 143/90 H Pulse Oximetry 96 98 96 Intake & Output 03/01/18 03/02/18 03/02/18 18:59 06:59 18:59 Intake Total 1550 / 1550 1806 / 1806 Balance 1550 / 1550 1806 / 1806 Weight 147 lb 7.828 oz 148 lb 9.465 oz Intake: IV 1550 / 1550 1356 / 1356 NS Inj 1,000 ML @ 100 mls/hr IV 1356 / 1356 .CONT .Q10H [facility] Rx#:[id number] Azithromycin Inj 500 MG In NS 250 / 250 Inj 250 ML @ 250 mls/hr IV.SIG ONCE ONE Rx#:[id number] KCl 20 mEq Premix Inj 20 meq In 100 / 100 100 ml @ 50 mls/hr IV.SIG ONCE ONE Rx#:[id number] NS Inj 1,000 ML @ 1000 mls/hr 1000 / 1000 IV.SIG BOLUS [facility] Rx#:[id number] Rocephin Inj 1,000 MG In NS Inj 200 / 200 100 ML @ 200 mls/hr IV.SIG Q12HR ONE Rx#:[id number] Oral 0 / 0 450 / 450 Other: # Voids 1 2 # Bowel Movements 1 Weight On Admission 147 lb 7.828 oz Result Diagrams: 03/02/18 09:32 03/02/18 09:32 Laboratory Results: Laboratory Results - last 24 hr 03/01/18 03/01/18 03/02/18 13:25 16:39 09:32 WBC 7.1 RBC 3.87 L Hgb 10.6 L Hct 33.0 L MCV 85.1 MCH 27.4 MCHC 32.2 RDW 18.0 H Plt Count 370 MPV 8.4 Neut % (Auto) 77.5 H Lymph % (Auto) 10.4 Reagan % (Auto) 9.2 H Eos % (Auto) 1.5 Baso % (Auto) 1.4 Neut # (Auto) 5.5 Lymph # (Auto) 0.7 L Reagan # (Auto) 0.7 Eos # (Auto) 0.1 Baso # (Auto) 0.1 WBC Differential . Differential Comment Auto diff final Sodium 141 Potassium 3.6 D Chloride 110 H Carbon Dioxide 21.9 Anion Gap 9 BUN 7 Creatinine 0.65 Estimated GFR Greater than 89 POC Glucose Random Glucose 122 H Lactic Acid 0.8 Calcium 8.9 03/02/18 03/02/18 09:32 11:33 WBC RBC Hgb Hct MCV MCH MCHC RDW Plt Count MPV Neut % (Auto) Lymph % (Auto) Reagan % (Auto) Eos % (Auto) Baso % (Auto) Neut # (Auto) Lymph # (Auto) Reagan # (Auto) Eos # (Auto) Baso # (Auto) WBC Differential Differential Comment Sodium 143 Potassium 2.9 L* Chloride 111 H Carbon Dioxide 23.3 Anion Gap 9 BUN 8 Creatinine 0.69 Estimated GFR Greater than 89 POC Glucose 123 H Random Glucose 135 H Lactic Acid Calcium 8.7 Culture Results: Microbiology 03/01/18 13:34 Aerobic Blood Culture - Preliminary Blood - Peripheral No growth in 1 day Anaerobic Blood Culture - Preliminary No growth in 1 day 03/01/18 13:28 Aerobic Blood Culture - Preliminary Blood - Peripheral No growth in 1 day Anaerobic Blood Culture - Preliminary No growth in 1 day Medications: Active Medications Generic Name Dose Route Start Last Admin Trade Name Freq PRN Reason Stop Dose Admin Enoxaparin Sodium 40 mg 03/01/18 11:00 03/02/18 11:55 Lovenox Inj SQ 40 mg Q24H [facility] Administration Sodium Chloride 1,000 mls @ 100 mls/hr 03/01/18 11:00 03/02/18 06:15 Ns Inj IV.CONT 100 mls/hr .Q10H [facility] Infusion Sodium Chloride 2 ml 03/01/18 04:25 03/01/18 07:46 Ns Flush IV.FLUSH 2 ml PRN PRN Administration FLUSH AFTER USING IV ACCESS Sodium Chloride 2 ml 03/01/18 21:00 03/02/18 08:36 Ns Flush IV.FLUSH Not Given BID MALLY Objective Remarks: GENERAL: Fatigued appearing female resting in bed in no acute distress SKIN: Warm and dry. Tumor to left side chest wall HEAD: Normocephalic. EYES: No scleral icterus. No injection or drainage. NECK: Supple, trachea midline. No JVD or lymphadenopathy. CARDIOVASCULAR: +S1/S2. RESPIRATORY: Clear anteriorly. Breathing unlabored at rest. GASTROINTESTINAL: Abdomen soft. EXTREMITIES: Mild 1+ pedal edema bilaterally MUSCULOSKELETAL: Generalized weakness NEUROLOGICAL: Awake and alert. No obvious focal deficit. Assessment/Plan - Plan 62-year-old female admitted with altered mental status. CT scan showed multiple liver masses with mediastinal adenopathy. The patient reports she has had biopsies in the past of her cancer at both [place] and [facility]. 1. We would still like to get information from family to determine if she has an oncologist. Interestingly she had biopsy of the liver back in 2008 that showed findings suggestive of carcinoid syndrome. Will attempt to contact patient's daughter. 2. Continue to monitor clinical status. Treatment of UTI to be managed by attending. - Attending Statement The exam, history, and the medical decision-making described in the above note were completed with the assistance of the mid-level provider. I reviewed and agree with the findings presented. I attest that I had a [id number] encounter with the patient on the same day, and personally performed and documented my assessment and findings in the medical record. Patient is feeling better today. She is less confused. 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 She had multiple resection in the past. She is seeing an oncologist at [facility] and has appointment next week. I called her daughter on the phone and she concur that patient has appointment at [facility] next week to see the oncologist. Patient also has been receiving chemoembolization to the liver and [facility]. Her last embolization was around August. Since patient is seeing an oncologist at [facility] not doing any more oncologic workup at this time. She will continue to follow-up with her primary oncologist at [facility] for treatment. Patient overall has improved with treatment for urinary tract infection.
--- NOTE | 2018-03-02 12:48 | ECG ---
Date Performed: 03/01/2018 Time Performed: 08:35:41 PTAGE: 62 years EKG: SINUS TACHYCARDIA POSSIBLE LEFT ATRIAL ENLARGEMENT NONSPECIFIC T-WAVE ABNORMALITY ABNORMAL RHYTHM ECG Since the PREVIOUS TRACING , no significant change noted PREVIOUS TRACIN02/22/2018 18.48 DOCTOR: Sergio Burch Interpretating Date/Time 03/02/2018 12:47:25
--- NOTE | 2018-03-02 14:49 | P.PNFP ---
Subjective Interval history: No acute events overnight. She has no new complaints this morning. She is more alert today and is oriented x3. She still does not know why she is in the hospital. She is unsure if she has had any biopsies of any of her tumors. She states that the mass on her left chest wall has been present for years, but does not seem to know about any other tumors elsewhere in her body. She does state that she lives with her daughter. She also states that she is still driving, but sometimes gets lost while driving. Her daughter states that she had a carcinoid tumor diagnosed in the . It only started to spread about a year ago. She is status post chemotherapy in about 2 undergo a form of radiation therapy. She had an embolization last September. Known lesions are in the liver, lungs, and on the ribs. She states that her mental status is 70% better today. Her home medications are amlodipine 5 mg and Nexium 20 mg. Her care is currently through [facility] in [place]. She does not wish to discuss comfort care measures with palliative care. <Gil Mensah - 03/02/18 15:11> Results - Labs Result diagrams: 03/03/18 10:42 03/03/18 10:42 <Amilcar Baig - 03/03/18 15:11> Abnormal lab results 03/02/18 03/02/18 03/02/18 Range/Units 15:56 15:56 17:35 Hgb (11.6-15.3) gm/dL Hct (35.0-46.0) % RDW (11.6-17.2) % Neut % (Auto) (16.0-70.0) % Lymph % (Auto) (9.0-44.0) % Neut # (Auto) (1.8-7.7) th/mm3 Lymph # (Auto) (1.0-4.8) th/mm3 Platelet Morphology (Normal) APTT (23.4-31.7) sec Potassium 2.9 L* (3.5-5.1) meq/L Chloride 111 H (98-107) meq/L BUN (7-18) mg/dL Estimated GFR 82 L (>89) mL/min POC Glucose 128 H (68-110) mg/dl Random Glucose 150 H (74-106) mg/dL Calcium 8.2 L (8.5-10.1) mg/dL Magnesium 1.4 L (1.5-2.5) mg/dL Troponin I (0.02-0.05) ng/mL MTS Gel Crossmatch 03/03/18 03/03/18 03/03/18 Range/Units 04:30 04:30 09:04 Hgb 11.2 L (11.6-15.3) gm/dL Hct 34.0 L (35.0-46.0) % RDW 17.7 H (11.6-17.2) % Neut % (Auto) 78.5 H (16.0-70.0) % Lymph % (Auto) (9.0-44.0) % Neut # (Auto) (1.8-7.7) th/mm3 Lymph # (Auto) (1.0-4.8) th/mm3 Platelet Morphology (Normal) APTT (23.4-31.7) sec Potassium 3.2 L (3.5-5.1) meq/L Chloride 112 H (98-107) meq/L BUN 6 L (7-18) mg/dL Estimated GFR (>89) mL/min POC Glucose 161 H (68-110) mg/dl Random Glucose 134 H (74-106) mg/dL Calcium (8.5-10.1) mg/dL Magnesium (1.5-2.5) mg/dL Troponin I (0.02-0.05) ng/mL MTS Gel Crossmatch 03/03/18 03/03/18 03/03/18 Range/Units 10:25 10:42 10:42 Hgb (11.6-15.3) gm/dL Hct (35.0-46.0) % RDW 18.6 H (11.6-17.2) % Neut % (Auto) 90.9 H (16.0-70.0) % Lymph % (Auto) 3.7 L (9.0-44.0) % Neut # (Auto) 9.7 H (1.8-7.7) th/mm3 Lymph # (Auto) 0.4 L (1.0-4.8) th/mm3 Platelet Morphology Clumped H (Normal) APTT (23.4-31.7) sec Potassium (3.5-5.1) meq/L Chloride (98-107) meq/L BUN (7-18) mg/dL Estimated GFR (>89) mL/min POC Glucose (68-110) mg/dl Random Glucose (74-106) mg/dL Calcium (8.5-10.1) mg/dL Magnesium (1.5-2.5) mg/dL Troponin I 0.09 H (0.02-0.05) ng/mL MTS Gel Crossmatch See Detail 03/03/18 03/03/18 Range/Units 10:42 10:42 Hgb (11.6-15.3) gm/dL Hct (35.0-46.0) % RDW (11.6-17.2) % Neut % (Auto) (16.0-70.0) % Lymph % (Auto) (9.0-44.0) % Neut # (Auto) (1.8-7.7) th/mm3 Lymph # (Auto) (1.0-4.8) th/mm3 Platelet Morphology (Normal) APTT 23.1 L (23.4-31.7) sec Potassium 3.4 L (3.5-5.1) meq/L Chloride 113 H (98-107) meq/L BUN (7-18) mg/dL Estimated GFR 85 L (>89) mL/min POC Glucose (68-110) mg/dl Random Glucose 152 H (74-106) mg/dL Calcium (8.5-10.1) mg/dL Magnesium (1.5-2.5) mg/dL Troponin I (0.02-0.05) ng/mL MTS Gel Crossmatch Short CBC 03/03/18 03/03/18 Range/Units 04:30 10:42 WBC 8.7 10.7 (4.0-11.0) th/mm3 Hgb 11.2 L 12.9 (11.6-15.3) gm/dL Hct 34.0 L 39.6 (35.0-46.0) % Plt Count 374 233 D (150-450) th/mm3 BMP 03/02/18 03/03/18 03/03/18 15:56 04:30 10:42 Sodium 142 143 144 Potassium 2.9 L* 3.2 L 3.4 L Chloride 111 H 112 H 113 H Carbon Dioxide 22.6 21.8 21.2 BUN 8 6 L 8 Creatinine 0.85 0.77 0.83 Calcium 8.2 L 8.7 9.2 Cardiac Enzymes 03/03/18 03/03/18 Range/Units 10:42 10:42 Total Creatine Kinase 61 (26-192) U/L Troponin I 0.09 H (0.02-0.05) ng/mL <Amilcar Baig - 03/03/18 15:11> Abnormal lab results 03/01/18 03/02/18 03/02/18 Range/Units 16:39 09:32 09:32 RBC 3.87 L (4.00-5.30) mil/mm3 Hgb 10.6 L (11.6-15.3) gm/dL Hct 33.0 L (35.0-46.0) % RDW 18.0 H (11.6-17.2) % Neut % (Auto) 77.5 H (16.0-70.0) % Trimble % (Auto) 9.2 H (0.0-8.0) % Lymph # (Auto) 0.7 L (1.0-4.8) th/mm3 Potassium 2.9 L* (3.5-5.1) meq/L Chloride 110 H 111 H (98-107) meq/L POC Glucose (68-110) mg/dl Random Glucose 122 H 135 H (74-106) mg/dL 03/02/18 Range/Units 11:33 RBC (4.00-5.30) mil/mm3 Hgb (11.6-15.3) gm/dL Hct (35.0-46.0) % RDW (11.6-17.2) % Neut % (Auto) (16.0-70.0) % [place]ble % (Auto) (0.0-8.0) % Lymph # (Auto) (1.0-4.8) th/mm3 Potassium (3.5-5.1) meq/L Chloride (98-107) meq/L POC Glucose 123 H (68-110) mg/dl Random Glucose (74-106) mg/dL Short CBC 03/02/18 Range/Units 09:32 WBC 7.1 (4.0-11.0) th/mm3 Hgb 10.6 L (11.6-15.3) gm/dL Hct 33.0 L (35.0-46.0) % Plt Count 370 (150-450) th/mm3 BMP 03/01/18 03/02/18 16:39 09:32 Sodium 141 143 Potassium 3.6 D 2.9 L* Chloride 110 H 111 H Carbon Dioxide 21.9 23.3 BUN 7 8 Creatinine 0.65 0.69 Calcium 8.9 8.7 <Gil Mensah - 03/02/18 15:11> - Imaging Impressions Chest X-Ray 03/03/18 00:00 CONCLUSION: 1. Increased opacity in the right hemithorax representing a large pleural effusion with associated consolidation and atelectasis. 2. There are also new interstitial changes in the left lung and today's CT demonstrated a new left pleural effusion. Head CT 03/03/18 09:38 CONCLUSION: 1. No focal or acute intracranial hemorrhage. 2. No significant change compared to the prior examination. Report was called by [ Dr. Roman to Dr. Quiroz at 9:52 AM] Head CTA 03/03/18 09:38 CONCLUSION: 1. Unremarkable CTA of the brain. Report was called by [Dr. Roman to Dr. Quiroz at 10:11 AM. ] Neck CTA 03/03/18 09:38 CONCLUSION: 1. No acute abnormality is identified within the neck arterial vasculature. 2. Lymphadenopathy in the mediastinum and supraclavicular regions bilaterally unchanged from the prior chest CT from 2 days ago. However, the right pleural effusion has increased in volume and the left pleural effusion is new. <Amilcar Baig - 03/03/18 15:11> Physical Exam Vital signs: Vital Signs 03/02/18 16:00 03/02/18 19:11 03/02/18 20:00 Temperature 99.3 F 97.9 F Pulse Rate 125 H 107 H 108 H Respiratory Rate 20 18 Blood Pressure 148/92 H 119/81 Pulse Oximetry 96 96 03/03/18 00:00 03/03/18 04:00 03/03/18 08:00 Temperature 97.3 F L 97.7 F Pulse Rate 119 H 118 H 130 H Respiratory Rate 18 22 Blood Pressure 146/98 H 154/107 H Pulse Oximetry 97 87 L 12/03/18 10:07 03/03/18 10:11 03/03/18 10:17 Temperature Pulse Rate 133 H 137 H Respiratory Rate 30 H 29 H Blood Pressure 172/115 H Pulse Oximetry 94 L 93 L 98 03/03/18 10:36 03/03/18 11:00 03/03/18 11:30 Temperature Pulse Rate 110 H 120 H 122 H Respiratory Rate 33 H 34 H 37 H Blood Pressure 135/97 H 144/105 H 144/94 H Pulse Oximetry 93 L 91 L 94 L 03/03/18 12:00 Temperature 98.8 F Pulse Rate 124 H Respiratory Rate 34 H Blood Pressure 152/96 H Pulse Oximetry 94 L Intake & Output 03/02/18 03/03/18 03/03/18 18:59 06:59 18:59 Intake Total 1084 / 1084 680 / 680 30 / 30 Balance 1084 / 1084 680 / 680 30 / 30 Weight 67 kg Intake: IV 844 / 844 200 / 200 30 / 30 NS Inj 1,000 ML @ 100 mls/hr IV 844 / 844 .CONT .Q10H [facility] Rx#:[id number] KCl 20 mEq Premix Inj 20 meq In 200 / 200 30 / 30 100 ml @ 50 mls/hr IV.SIG ONCE ONE Rx#:[id number] Oral 240 / 240 480 / 480 Other: # Voids 2 2 # Bowel Movements 1 <Amilcar Baig - 03/03/18 15:11> Vital Signs 03/01/18 16:00 03/01/18 20:00 03/01/18 20:47 Temperature 98.3 F 98.5 F Pulse Rate 107 H 113 H Respiratory Rate 20 18 Blood Pressure 123/86 138/85 Pulse Oximetry 99 98 98 03/02/18 00:00 03/02/18 04:00 03/02/18 08:00 Temperature 98.1 F 98.0 F 98.4 F Pulse Rate 105 H 109 H 90 Respiratory Rate 17 16 20 Blood Pressure 159/88 H 136/84 143/90 H Pulse Oximetry 96 98 96 03/02/18 12:00 03/02/18 13:11 Temperature 99.1 F Pulse Rate 101 H Respiratory Rate 20 Blood Pressure 128/93 H Pulse Oximetry 95 96 Intake & Output 03/01/18 03/02/18 03/02/18 18:59 06:59 18:59 Intake Total 1550 / 1550 1806 / 1806 644 / 644 Balance 1550 / 1550 1806 / 1806 644 / 644 Weight 66.9 kg 67.4 kg Intake: IV 1550 / 1550 1356 / 1356 644 / 644 NS Inj 1,000 ML @ 100 mls/hr IV 1356 / 1356 644 / 644 .CONT .Q10H [facility] Rx#:[id number] Azithromycin Inj 500 MG In NS 250 / 250 Inj 250 ML @ 250 mls/hr IV.SIG ONCE ONE Rx#:[id number] KCl 20 mEq Premix Inj 20 meq In 100 / 100 100 ml @ 50 mls/hr IV.SIG ONCE ONE Rx#:[id number] NS Inj 1,000 ML @ 1000 mls/hr 1000 / 1000 IV.SIG BOLUS [facility] Rx#:[id number] Rocephin Inj 1,000 MG In NS Inj 200 / 200 100 ML @ 200 mls/hr IV.SIG Q12HR ONE Rx#:[id number] Oral 0 / 0 450 / 450 Other: # Voids 1 2 # Bowel Movements 1 Weight On Admission 66.9 kg <Gil Mensah - 03/02/18 15:11> Narrative: General: Well-developed, and in no acute distress. Appears stated age. She is lethargic, but arousable, confused, and does not respond appropriately to most questions. She is oriented to person and time, however mumbles incoherently when asked where she is. HEENT: Atraumatic, moist mucous membranes Neck: Supple, trachea midline Cardiac: Regular rate and rhythm without murmur Pulmonary: Non-labored breathing. Lungs clear to auscultation bilaterally with good air movement. There is a palpable hard, tender mass in the left chest wall. Abdomen: Normal bowel sounds, non-tender without rebound or guarding, there is a palpable mass in the right upper quadrant. Extremities: 2+ pedal pulses, capillary refill less than 2 seconds Skin: Small, stage I sacral ulcer <Gil Mensah - 03/02/18 15:11> Assessment and Plan - Assessment (1) Acute UTI Code(s): N39.0 - Urinary tract infection, site not specified Status: Acute (2) Acute hypokalemia Code(s): E87.6 - Hypokalemia Status: Acute (3) Altered mental status Code(s): R41.82 - Altered mental status, unspecified Status: Acute (4) Metastatic carcinoid tumor Code(s): C7B.00 - Secondary carcinoid tumors, unspecified site Status: Acute (5) Hypertension Code(s): I10 - Essential (primary) hypertension Status: Acute <Gil Mensah - 03/02/18 14:27> (1) Stroke Code(s): I63.9 - Cerebral infarction, unspecified Status: Acute (2) Acute UTI Code(s): N39.0 - Urinary tract infection, site not specified Status: Acute (3) Acute hypokalemia Code(s): E87.6 - Hypokalemia Status: Acute (4) Altered mental status Code(s): R41.82 - Altered mental status, unspecified Status: Acute (5) Metastatic carcinoid tumor Code(s): C7B.00 - Secondary carcinoid tumors, unspecified site Status: Acute (6) Hypertension Code(s): I10 - Essential (primary) hypertension Status: Acute <BaigAmilcar - 03/03/18 15:11> - Assessment and Plan Patient is a 62-year-old female with a history of malignancy and altered mental status, possibly secondary to urinary tract infection. Acute UTI and AMS -She denies any dysuria, however her urinalysis showed moderate leukocyte esterase, protein, and pyuria -This may be a cause of her altered mental status, however we are unsure of her baseline mental status -Continue Rocephin 1 g every 12 hours. -Blood cultures showed no growth in 1 day -She may have some baseline mental changes from her malignancy, however her mental status is acutely worse due to her UTI -Her daughter states 70% improvement today over yesterday -Has needed IM and p.o. Haldol for agitation during hospitalization Metastatic carcinoid tumor -According to her daughter this is diagnosed in the s, but began spreading about 1 year ago -She has sclerotic lesions in her frontal bone, lungs, a mass in her left chest wall, lesions and in her liver -We will get more history from her daughter when we are able to speak with her, further history from the patient is unobtainable due to her mental status at this time Hypokalemia -Potassium this morning was 2.9, she was given 50 mg p.o. at that time -Repeat potassium ordered, will monitor and continue to replete as needed Hypertension -Blood pressures here have been overall stable, however we will continue her home medication amlodipine 5 mg daily Fluids: Adequate p.o. intake Electrolytes: monitor and replete as needed Nutrition: Regular diet GI prophylaxis: P.o. Protonix, not for GI prophylaxis but continued home meds VTE prophylaxis: Subcutaneous Lovenox <Gil Mensah - 03/02/18 15:11>
[2018-03-02 16:46] LABS: Calcium 8.2 mg/dL (8.5-10.1); Carbon Dioxide 22.6 meq/L (21.0-32.0)
[2018-03-02 16:49] LABS: Potassium 2.9 meq/L (3.5-5.1)
[2018-03-02] MEDS: Potassium Chlor 20 mEq Premix 20 MEQ/100 ML PIGGYBACK IV.SIG SCH ×2 (17:30→19:45)
[2018-03-03 05:48] LABS: Baso # (Auto) 0.1 th/mm3 (0.0-0.2); Baso % (Auto) 1.4 % (0.0-2.0); Eos # (Auto) 0.1 th/mm3 (0.0-0.4); Eos % (Auto) 1.5 % (0.0-4.0); Hemoglobin 11.2 gm/dL (11.6-15.3); Lymph % (Auto) 11.1 % (9.0-44.0); Mean Corpuscular HGB Conc 33.1 % (32.0-36.0); Mean Corpuscular Volume 84.4 fL (80.0-100.0); Mean Platelet Volume 8.8 fL (7.0-11.0); Mono # (Auto) 0.7 th/mm3 (0.0-0.9); Mono % (Auto) 7.5 % (0.0-8.0); Neut # (Auto) 6.8 th/mm3 (1.8-7.7); Neut % (Auto) 78.5 % (16.0-70.0); Platelet Count 374 th/mm3 (150-450); Red Blood Count 4.02 mil/mm3 (4.00-5.30); Red Cell Distribution Width 17.7 % (11.6-17.2); White Blood Count 8.7 th/mm3 (4.0-11.0)
[2018-03-03 06:12] LABS: Anion Gap 9 meq/L (5-15); Blood Urea Nitrogen 6 mg/dL (7-18); Calcium 8.7 mg/dL (8.5-10.1); Carbon Dioxide 21.8 meq/L (21.0-32.0); Chloride 112 meq/L (98-107); Glomerular Filtration Rate Greater Than 89 mL/min (>89); Glucose,Random 134 mg/dL (74-106); Potassium 3.2 meq/L (3.5-5.1); Sodium 143 meq/L (136-145)
[2018-03-03] MEDS ORDERED: Potassium Chlor 20 mEq Premix 20 MEQ/100 ML PIGGYBACK IV.SIG ONE (07:15)
[2018-03-03] MEDS: amLODIPine 5 MG Tablet PO SCH (08:36)
[2018-03-03] MEDS: Pantoprazole Sodium 20 MG DR Tablet PO SCH (08:36)
--- NOTE | 2018-03-03 09:55 | CT ---
EXAM DATE: 03/03/2018 9:50 AM EST AGE/SEX: 62 years / Female INDICATIONS: Right facial droop, aphasia CLINICAL DATA: This is the patient's initial encounter. Patient reports that signs and symptoms have been present for 1 day and indicates a pain score of 0/10. MEDICAL/SURGICAL HISTORY: None. None. RADIATION DOSE: 66.35 CTDI (mGy) COMPARISON: [facility] [place], 03/01/2018. . TECHNIQUE: CT of the head without contrast. Using automated exposure control and adjustment of the mA and/or kV according to patient size, radiation dose was kept as low as reasonably achievable to ob tain optimal diagnostic quality images. DICOM format image data is available electronically for revi ew and comparison. FINDINGS: Cerebrum: The ventricles are normal for age. No evidence of midline shift, mass lesion, hemorrhage or acute infarction. No extraaxial fluid collections are seen. Posterior Fossa: The cerebellum and brainstem are intact. The 4th ventricle is midline. The cerebe llopontine angle is unremarkable. Extracranial: The visualized portion of the orbits is intact. There is evidence of opacification of the left maxillary sinus consistent with chronic sinus disease. Skull: The calvaria is intact. No evidence of skull fracture. The appearance of the calvarium is st able compared to the prior study. Specifically, no change in the 2 nonspecific sclerotic lesions in t he right frontal bone. No significant change compared to the prior study. CONCLUSION: 1. No focal or acute intracranial hemorrhage. 2. No significant change compared to the prior examination. Report was called by [ Dr. Roman to Dr. Quiroz at 9:52 AM] Electronically signed by: Sean Roman MD 03/03/2018 9:54 AM EST
--- NOTE | 2018-03-03 10:17 | CT ---
EXAM DATE: 03/03/2018 10:10 AM EST AGE/SEX: 62 years / Female INDICATIONS: Stroke alert, right facial droop, aphasia CLINICAL DATA: This is the patient's initial encounter. Patient reports that signs and symptoms have been present for 1 day and indicates a pain score of 0/10. MEDICAL/SURGICAL HISTORY: None. None. RADIATION DOSE: 10.14 CTDI (mGy) ; Combined studies [place] [facility] [place]2018. . TECHNIQUE: Volumetric scanning was performed using a multi-row detector CT scanner during bolus infu aldo of 75 ml Visipaque 320 (iodixanol) nonionic water-soluble contrast as a cumulative dose for [facility] [place] tiple exams. The data was post processed with a variety of visualization algorithms including full volume maximum intensity projection, multi-planar sliding thin slab reformation, curved planar reform ation, and surface rendering techniques. Using automated exposure control and adjustment of the mA a nd/or kV according to patient size, radiation dose was kept as low as reasonably achievable to obtain optimal diagnostic quality images. DICOM format image data is available electronically for review a nd comparison. FINDINGS: There is excellent visualization of the major intracranial arteries out to the second-order branch ve ssels. There is no evidence for aneurysm, vessel truncation or stenosis, and no evidence for vascula r malformation. There are bilateral patent posterior communicating arteries. CONCLUSION: 1. Unremarkable CTA of the brain. Report was called by [Dr. Roman to Dr. Quiroz at 10:11 AM. ] Electronically signed by: Sean Roman MD 03/03/2018 10:16 AM EST
[2018-03-03] MEDS ORDERED: Labetalol HCl Inj 100 MG/20 ML Vial ONE (10:21)
[2018-03-03] MEDS ORDERED: Aspirin 300 MG Supp RECTAL SCH (10:30)
[2018-03-03] MEDS ORDERED: Labetalol HCl Inj 100 MG/20 ML Vial IV.PUSH ONE ×2 (10:30→13:00)
[2018-03-03] MEDS: Enoxaparin Inj 40 MG/0.4 ML Syringe SQ SCH (10:50)
--- NOTE | 2018-03-03 10:55 | CT ---
EXAM DATE: 03/03/2018 10:33 AM EST AGE/SEX: 62 years / Female INDICATIONS: Stroke alert, right facial droop, aphasia CLINICAL DATA: This is the patient's initial encounter. Patient reports that signs and symptoms have been present for 1 day and indicates a pain score of 0/10. MEDICAL/SURGICAL HISTORY: None. None. RADIATION DOSE: 10.14 CTDI (mGy) ; Combined studies COMPARISON: C, CT CHEST W CONTRAST, 03/01/2018. [facility] [place], CTA HEAD W CONTRAST W 3D, 03/03/2018. . TECHNIQUE: Volumetric scanning was performed using a multirow detector CT scanner during bolus infus ion of 75 ml Visipaque 320 (iodixanol) nonionic water-soluble contrast as a cumulative dose for mult iple exams. The data was postprocessed with a variety of visualization algorithms including full-vo lume maximum intensity projection, multiplanar sliding thin-slab reformation, curved-planar reformati on, and surface-rendering techniques. Using automated exposure control and adjustment of the mA and/ or kV according to patient size, radiation dose was kept as low as reasonably achievable to obtain op timal diagnostic quality images. DICOM format image data is available electronically for review and comparison. Percent stenosis is calculated using the diameter of the stenotic region over the diameter of the nor mal distal internal carotid artery. FINDINGS: Aortic Arch: There is a three-vessel origin of the great vessels from the aorta. No evidence of ost ial narrowing Right Carotid: The common carotid artery demonstrates no acute abnormality or significant stenosis. The carotid bulb has a normal configuration without ulceration or narrowing. The internal carotid a rtery lumen is smooth without stenosis. The external carotid artery demonstrates no significant abno rmality. Left Carotid: The common carotid artery demonstrates no acute abnormality or significant stenosis. The carotid bulb has a normal configuration without ulceration or narrowing. The internal carotid ar christiano lumen is smooth without stenosis. The external carotid artery demonstrates no significant abnor mality. Vertebrals: The vertebral arteries have a symmetric diameter. No stenotic lesions are seen. Other: There is a large right pleural effusion with atelectasis and/or consolidation in the right upp er lobe. Left pleural effusion is also present. There is an enlarged lymph node or mass in the right paratracheal region measuring approximately 3.0 x 2.8 cm. There additionally is a right supraclavicul ar lymphadenopathy measuring 3.5 x 2.5 cm and left supraclavicular lymphadenopathy measuring up to 3. 2 x 2.0 cm. Thyroid gland is heterogeneous and enlarged on the right with areas of punctate calcifica tion. CONCLUSION: 1. No acute abnormality is identified within the neck arterial vasculature. 2. Lymphadenopathy in the mediastinum and supraclavicular regions bilaterally unchanged from the vanessa or chest CT from 2 days ago. However, the right pleural effusion has increased in volume and the left pleural effusion is new. Electronically signed by: Isrrael Hernández MD 03/03/2018 10:53 AM EST
--- NOTE | 2018-03-03 11:07 | XR ---
EXAM DATE: 03/03/2018 11:03 AM EST AGE/SEX: 62 years / Female INDICATIONS: Stroke alert. CLINICAL DATA: This is the patient's subsequent encounter. Patient reports that signs and symptoms h ave been present for 3 days and indicates a pain score of Nonresponsive. MEDICAL/SURGICAL HISTORY: . Carcinoma, bone. Carcinoma, lung. Hypertension. Liver cancer. . H ysterectomy. COMPARISON: [facility] [place], [place] CHEST W CONTRAST, 03/01/2018. [facility] [place], CHEST 1V SINGLE AP, 03/01/2018. [facility] [place], CTA NECK W CONTRAST W 3D, 03/03/2018. . FINDINGS: Portable AP view of the chest demonstrates cardiac silhouette size at the upper limits for normal. EK G lines overlie the patient. There is a moderate to large right pleural parenchymal opacity, increase d from the prior study. Perihilar interstitial changes are present on the left. No pneumothorax is id entified. Bones demonstrate no acute finding. CONCLUSION: 1. Increased opacity in the right hemithorax representing a large pleural effusion with associated c onsolidation and atelectasis. 2. There are also new interstitial changes in the left lung and today's CT demonstrated a new left p leural effusion. Electronically signed by: Isrrael Hernández MD 03/03/2018 11:06 AM EST
[2018-03-03 11:15] LABS: Activated Partial Thrombo Time 23.1 sec (23.4-31.7); INR 1.1 Ratio; Prothrombin Time 11.4 sec (9.8-11.6)
--- NOTE | 2018-03-03 11:19 | MB ---
cc: Negrito Quiroz MD, PhD DATE: 03/03/2018 REASON FOR CONSULTATION: Stroke alert. HISTORY OF PRESENT ILLNESS: The patient is a 62-year-old female who has metastatic carcinoid tumor widely metastasized who was admitted with mental status change and urinary tract infection. Last seen normal at 8:30 a.m., was then found at a later time to have left-sided weakness involving the left arm and left leg. Therefore, stroke alert was called. She has no prior history of stroke or TIA. 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 Recent alteration in mental status, hypercholesterolemia, hypertension, lung cancer, liver cancer. CURRENT MEDICATIONS: 1. Tylenol. 2. Norvasc 5 mg daily. 3. Lovenox 40 mg daily. 4. Zofran p.r.n. 5. Protonix 20 mg daily. 6. Klor-Con. NEUROLOGICAL EXAMINATION: VITAL SIGNS: Her blood pressure is 146/98, pulse is 114. She is in normal sinus rhythm, respirations 18, temperature 97.3 degrees and hypofunction. NEUROLOGIC: She is lethargic. Her mental status waxes and wanes. At times. She is able to follow commands. Other times she is not. She is very confused. When she does follow commands. She is able to lift both arms up equally. She does not move the legs, but it is difficult to know whether this is due to weakness or inability to follow commands. Cranial nerves are grossly intact, although again limited due to her encephalopathic state. Pupils equal and reactive. CT brain, noncontrast is negative. CT angiogram of the brain is negative for any large vessel occlusion. LABORATORY DATA: The white count is 8700, hemoglobin 11.2, hematocrit 34%, platelet count 374,000. Sodium is 143, potassium 0.2, chloride 112, CO2 22. The BUN is 6, creatinine 0.77. GFR is greater than 89, glucose is 161, calcium 8.7. Urinalysis from the first pH is 6, specific gravity is 1.08, protein is 30, 16 WBC's. IMPRESSION: Probable stroke versus transient ischemic attack, right hemisphere event. Her exam appears to be improving at the present time now with equal strength in both arms. It is difficult to assess her leg strength due to her difficulty with following commands, which is probably related to more of an encephalopathy. RECOMMENDATIONS: The patient is not a candidate for IV TPA given the widespread metastatic carcinoid tumor, which would pose an increased hemorrhagic risk as well as now showing demonstrable improvement in her neurologic examination. We did do a CT angiogram to assess for the possibility of large vessel occlusion that would be amenable to endovascular therapy and there is none. RECOMMENDATION: We will control the patient's blood pressure treating it if it is 210/100 with labetalol. I would like to get an MRI of the brain for further evaluation and also an EEG to be sure this was not some type of focal seizure. Followup on the CT of the neck. Also, start aspirin. We will get an echocardiogram as well. Negrito Quiroz MD, PhD JON/jean-paul , 10:24 AM , 10:31 AM
[2018-03-03 11:40] LABS: Baso # (Auto) 0.1 th/mm3 (0.0-0.2); Baso % (Auto) 0.5 % (0.0-2.0); Eos % (Auto) 0.1 % (0.0-4.0); Hematocrit 39.6 % (35.0-46.0); Hemoglobin 12.9 gm/dL (11.6-15.3); Lymph # (Auto) 0.4 th/mm3 (1.0-4.8); Lymph % (Auto) 3.7 % (9.0-44.0); Mean Corpuscular HGB Conc 32.5 % (32.0-36.0); Mean Corpuscular Hemoglobin 27.7 pg (27.0-34.0); Mean Corpuscular Volume 85.1 fL (80.0-100.0); Mean Platelet Volume 9.6 fL (7.0-11.0); Mono # (Auto) 0.5 th/mm3 (0.0-0.9); Mono % (Auto) 4.8 % (0.0-8.0); Neut # (Auto) 9.7 th/mm3 (1.8-7.7); Neut % (Auto) 90.9 % (16.0-70.0); Platelet Count 233 th/mm3 (150-450); Red Blood Count 4.65 mil/mm3 (4.00-5.30); Red Cell Distribution Width 18.6 % (11.6-17.2); White Blood Count 10.7 th/mm3 (4.0-11.0)
[2018-03-03 12:13] LABS: Platelet Estimate Normal (Normal); Platelet Morphology Clumped (Normal)
--- NOTE | 2018-03-03 12:40 | P.PNFP ---
Addendum entered and electronically signed by Gil Mensah MD, R1 06/16 12:52: Corrected documentation: She has been placed n.p.o. secondary to her stroke pending evaluation by speech therapy. IV fluids were started, normal saline with 20 mEq of KCl per liter at 100 cc/h. In addition, we have spoken with her daughter about her cancer history. She is being taken care of at [facility] in [place]. Original Note: Subjective Interval history: Received a high priority page at 0916 this morning stating that she had left- sided weakness, left-sided facial droop, and that a stroke alert had been called. We came to evaluate the patient immediately. At that time she had continued left-sided facial droop and was more confused than normal. She was following some commands, but had difficulty with others. She had some difficulty speaking, however she has had some at baseline. She stated that she felt tired, however she was unable to give any further history at this point. <Gil Mensah - 03/03/18 12:39> Results - Labs Result diagrams: 03/03/18 10:42 03/03/18 10:42 <Amilcar Baig - 03/03/18 15:29> Abnormal lab results 03/02/18 03/02/18 03/02/18 Range/Units 15:56 15:56 17:35 Hgb (11.6-15.3) gm/dL Hct (35.0-46.0) % RDW (11.6-17.2) % Neut % (Auto) (16.0-70.0) % Lymph % (Auto) (9.0-44.0) % Neut # (Auto) (1.8-7.7) th/mm3 Lymph # (Auto) (1.0-4.8) th/mm3 Platelet Morphology (Normal) APTT (23.4-31.7) sec Potassium 2.9 L* (3.5-5.1) meq/L Chloride 111 H (98-107) meq/L BUN (7-18) mg/dL Estimated GFR 82 L (>89) mL/min POC Glucose 128 H (68-110) mg/dl Random Glucose 150 H (74-106) mg/dL Calcium 8.2 L (8.5-10.1) mg/dL Magnesium 1.4 L (1.5-2.5) mg/dL Troponin I (0.02-0.05) ng/mL Ur Specific Lester (1.002-1.035) Urine Protein (Neg-Trace) mg/dL Urine RBC (0-3) /hpf Urine Mucus (Occasional) /lpf MTS Gel Crossmatch 03/03/18 03/03/18 03/03/18 Range/Units 04:30 04:30 09:04 Hgb 11.2 L (11.6-15.3) gm/dL Hct 34.0 L (35.0-46.0) % RDW 17.7 H (11.6-17.2) % Neut % (Auto) 78.5 H (16.0-70.0) % Lymph % (Auto) (9.0-44.0) % Neut # (Auto) (1.8-7.7) th/mm3 Lymph # (Auto) (1.0-4.8) th/mm3 Platelet Morphology (Normal) APTT (23.4-31.7) sec Potassium 3.2 L (3.5-5.1) meq/L Chloride 112 H (98-107) meq/L BUN 6 L (7-18) mg/dL Estimated GFR (>89) mL/min POC Glucose 161 H (68-110) mg/dl Random Glucose 134 H (74-106) mg/dL Calcium (8.5-10.1) mg/dL Magnesium (1.5-2.5) mg/dL Troponin I (0.02-0.05) ng/mL Ur Specific Lester (1.002-1.035) Urine Protein (Neg-Trace) mg/dL Urine RBC (0-3) /hpf Urine Mucus (Occasional) /lpf MTS Gel Crossmatch 03/03/18 03/03/18 03/03/18 Range/Units 10:25 10:42 10:42 Hgb (11.6-15.3) gm/dL Hct (35.0-46.0) % RDW 18.6 H (11.6-17.2) % Neut % (Auto) 90.9 H (16.0-70.0) % Lymph % (Auto) 3.7 L (9.0-44.0) % Neut # (Auto) 9.7 H (1.8-7.7) th/mm3 Lymph # (Auto) 0.4 L (1.0-4.8) th/mm3 Platelet Morphology Clumped H (Normal) APTT (23.4-31.7) sec Potassium (3.5-5.1) meq/L Chloride (98-107) meq/L BUN (7-18) mg/dL Estimated GFR (>89) mL/min POC Glucose (68-110) mg/dl Random Glucose (74-106) mg/dL Calcium (8.5-10.1) mg/dL Magnesium (1.5-2.5) mg/dL Troponin I 0.09 H (0.02-0.05) ng/mL Ur Specific Lester (1.002-1.035) Urine Protein (Neg-Trace) mg/dL Urine RBC (0-3) /hpf Urine Mucus (Occasional) /lpf MTS Gel Crossmatch See Detail 03/03/18 03/03/18 03/03/18 Range/Units 10:42 10:42 13:55 Hgb (11.6-15.3) gm/dL Hct (35.0-46.0) % RDW (11.6-17.2) % Neut % (Auto) (16.0-70.0) % Lymph % (Auto) (9.0-44.0) % Neut # (Auto) (1.8-7.7) th/mm3 Lymph # (Auto) (1.0-4.8) th/mm3 Platelet Morphology (Normal) APTT 23.1 L (23.4-31.7) sec Potassium 3.4 L (3.5-5.1) meq/L Chloride 113 H (98-107) meq/L BUN (7-18) mg/dL Estimated GFR 85 L (>89) mL/min POC Glucose (68-110) mg/dl Random Glucose 152 H (74-106) mg/dL Calcium (8.5-10.1) mg/dL Magnesium (1.5-2.5) mg/dL Troponin I (0.02-0.05) ng/mL Ur Specific Lester Greater than 1.060 H (1.002-1.035) Urine Protein 100 H (Neg-Trace) mg/dL Urine RBC 7 H (0-3) /hpf Urine Mucus Many H (Occasional) /lpf MTS Gel Crossmatch Short CBC 03/03/18 03/03/18 Range/Units 04:30 10:42 WBC 8.7 10.7 (4.0-11.0) th/mm3 Hgb 11.2 L 12.9 (11.6-15.3) gm/dL Hct 34.0 L 39.6 (35.0-46.0) % Plt Count 374 233 D (150-450) th/mm3 BMP 03/02/18 03/03/18 03/03/18 15:56 04:30 10:42 Sodium 142 143 144 Potassium 2.9 L* 3.2 L 3.4 L Chloride 111 H 112 H 113 H Carbon Dioxide 22.6 21.8 21.2 BUN 8 6 L 8 Creatinine 0.85 0.77 0.83 Calcium 8.2 L 8.7 9.2 Cardiac Enzymes 03/03/18 03/03/18 Range/Units 10:42 10:42 Total Creatine Kinase 61 (26-192) U/L Troponin I 0.09 H (0.02-0.05) ng/mL Urine 03/03/18 Range/Units 13:55 Urine Color Leticia (Yellw/Straw) Urine Clarity Clear (Clear) Urine pH 6.0 (5.0-8.5) Ur Specific Lester Greater than 1.060 H (1.002-1.035) Urine Protein 100 H (Neg-Trace) mg/dL Urine Glucose (UA) Negative (Negative) mg/dL <Amilcar Baig - 03/03/18 15:29> Abnormal lab results 03/02/18 03/02/18 03/02/18 Range/Units 15:56 15:56 17:35 Hgb (11.6-15.3) gm/dL Hct (35.0-46.0) % RDW (11.6-17.2) % Neut % (Auto) (16.0-70.0) % Lymph % (Auto) (9.0-44.0) % Neut # (Auto) (1.8-7.7) th/mm3 Lymph # (Auto) (1.0-4.8) th/mm3 APTT (23.4-31.7) sec Potassium 2.9 L* (3.5-5.1) meq/L Chloride 111 H (98-107) meq/L BUN (7-18) mg/dL Estimated GFR 82 L (>89) mL/min POC Glucose 128 H (68-110) mg/dl Random Glucose 150 H (74-106) mg/dL Calcium 8.2 L (8.5-10.1) mg/dL Magnesium 1.4 L (1.5-2.5) mg/dL Troponin I (0.02-0.05) ng/mL MTS Gel Crossmatch 03/03/18 03/03/18 03/03/18 Range/Units 04:30 04:30 09:04 Hgb 11.2 L (11.6-15.3) gm/dL Hct 34.0 L (35.0-46.0) % RDW 17.7 H (11.6-17.2) % Neut % (Auto) 78.5 H (16.0-70.0) % Lymph % (Auto) (9.0-44.0) % Neut # (Auto) (1.8-7.7) th/mm3 Lymph # (Auto) (1.0-4.8) th/mm3 APTT (23.4-31.7) sec Potassium 3.2 L (3.5-5.1) meq/L Chloride 112 H (98-107) meq/L BUN 6 L (7-18) mg/dL Estimated GFR (>89) mL/min POC Glucose 161 H (68-110) mg/dl Random Glucose 134 H (74-106) mg/dL Calcium (8.5-10.1) mg/dL Magnesium (1.5-2.5) mg/dL Troponin I (0.02-0.05) ng/mL MTS Gel Crossmatch 03/03/18 03/03/18 03/03/18 Range/Units 10:25 10:42 10:42 Hgb (11.6-15.3) gm/dL Hct (35.0-46.0) % RDW 18.6 H (11.6-17.2) % Neut % (Auto) 90.9 H (16.0-70.0) % Lymph % (Auto) 3.7 L (9.0-44.0) % Neut # (Auto) 9.7 H (1.8-7.7) th/mm3 Lymph # (Auto) 0.4 L (1.0-4.8) th/mm3 APTT (23.4-31.7) sec Potassium (3.5-5.1) meq/L Chloride (98-107) meq/L BUN (7-18) mg/dL Estimated GFR (>89) mL/min POC Glucose (68-110) mg/dl Random Glucose (74-106) mg/dL Calcium (8.5-10.1) mg/dL Magnesium (1.5-2.5) mg/dL Troponin I 0.09 H (0.02-0.05) ng/mL MTS Gel Crossmatch See Detail 03/03/18 Range/Units 10:42 Hgb (11.6-15.3) gm/dL Hct (35.0-46.0) % RDW (11.6-17.2) % Neut % (Auto) (16.0-70.0) % Lymph % (Auto) (9.0-44.0) % Neut # (Auto) (1.8-7.7) th/mm3 Lymph # (Auto) (1.0-4.8) th/mm3 APTT 23.1 L (23.4-31.7) sec Potassium (3.5-5.1) meq/L Chloride (98-107) meq/L BUN (7-18) mg/dL Estimated GFR (>89) mL/min POC Glucose (68-110) mg/dl Random Glucose (74-106) mg/dL Calcium (8.5-10.1) mg/dL Magnesium (1.5-2.5) mg/dL Troponin I (0.02-0.05) ng/mL MTS Gel Crossmatch Short CBC 03/03/18 03/03/18 Range/Units 04:30 10:42 WBC 8.7 10.7 (4.0-11.0) th/mm3 Hgb 11.2 L 12.9 (11.6-15.3) gm/dL Hct 34.0 L 39.6 (35.0-46.0) % Plt Count 374 233 D (150-450) th/mm3 BMP 03/02/18 03/03/18 15:56 04:30 Sodium 142 143 Potassium 2.9 L* 3.2 L Chloride 111 H 112 H Carbon Dioxide 22.6 21.8 BUN 8 6 L Creatinine 0.85 0.77 Calcium 8.2 L 8.7 Cardiac Enzymes 03/03/18 03/03/18 Range/Units 10:42 10:42 Total Creatine Kinase 61 (26-192) U/L Troponin I 0.09 H (0.02-0.05) ng/mL <Gil Mensah - 03/03/18 12:39> - Imaging Impressions Chest X-Ray 03/03/18 00:00 CONCLUSION: 1. Increased opacity in the right hemithorax representing a large pleural effusion with associated consolidation and atelectasis. 2. There are also new interstitial changes in the left lung and today's CT demonstrated a new left pleural effusion. Head CT 03/03/18 09:38 CONCLUSION: 1. No focal or acute intracranial hemorrhage. 2. No significant change compared to the prior examination. Report was called by [ Dr. Roman to Dr. Quiroz at 9:52 AM] Head CTA 03/03/18 09:38 CONCLUSION: 1. Unremarkable CTA of the brain. Report was called by [Dr. Roman to Dr. Quiroz at 10:11 AM. ] Neck CTA 03/03/18 09:38 CONCLUSION: 1. No acute abnormality is identified within the neck arterial vasculature. 2. Lymphadenopathy in the mediastinum and supraclavicular regions bilaterally unchanged from the prior chest CT from 2 days ago. However, the right pleural effusion has increased in volume and the left pleural effusion is new. <Amilcar Baig - 03/03/18 15:29> Impressions Chest X-Ray 03/03/18 00:00 CONCLUSION: 1. Increased opacity in the right hemithorax representing a large pleural effusion with associated consolidation and atelectasis. 2. There are also new interstitial changes in the left lung and today's CT demonstrated a new left pleural effusion. Head CT 03/03/18 09:38 CONCLUSION: 1. No focal or acute intracranial hemorrhage. 2. No significant change compared to the prior examination. Report was called by [ Dr. Roman to Dr. Quiroz at 9:52 AM] Head CTA 03/03/18 09:38 CONCLUSION: 1. Unremarkable CTA of the brain. Report was called by [Dr. Roman to Dr. Quiroz at 10:11 AM. ] Neck CTA 03/03/18 09:38 CONCLUSION: 1. No acute abnormality is identified within the neck arterial vasculature. 2. Lymphadenopathy in the mediastinum and supraclavicular regions bilaterally unchanged from the prior chest CT from 2 days ago. However, the right pleural effusion has increased in volume and the left pleural effusion is new. <Gil Mensah - 03/03/18 12:39> Physical Exam Vital signs: Vital Signs 03/02/18 16:00 03/02/18 19:11 03/02/18 20:00 Temperature 99.3 F 97.9 F Pulse Rate 125 H 107 H 108 H Respiratory Rate 20 18 Blood Pressure 148/92 H 119/81 Pulse Oximetry 96 96 03/03/18 00:00 03/03/18 04:00 03/03/18 08:00 Temperature 97.3 F L 97.7 F Pulse Rate 119 H 118 H 130 H Respiratory Rate 18 22 Blood Pressure 146/98 H 154/107 H Pulse Oximetry 97 87 L 03/03/18 10:07 03/03/18 10:11 03/03/18 10:17 Temperature Pulse Rate 133 H 137 H Respiratory Rate 30 H 29 H Blood Pressure 172/115 H Pulse Oximetry 94 L 93 L 98 03/03/18 10:36 03/03/18 11:00 03/03/18 11:30 Temperature Pulse Rate 110 H 120 H 122 H Respiratory Rate 33 H 34 H 37 H Blood Pressure 135/97 H 144/105 H 144/94 H Pulse Oximetry 93 L 91 L 94 L 03/03/18 12:00 Temperature 98.8 F Pulse Rate 124 H Respiratory Rate 34 H Blood Pressure 152/96 H Pulse Oximetry 94 L Intake & Output 03/02/18 03/03/18 03/03/18 18:59 06:59 18:59 Intake Total 1084 / 1084 680 / 680 30 / 30 Balance 1084 / 1084 680 / 680 30 / 30 Weight 67 kg Intake: IV 844 / 844 200 / 200 30 / 30 NS Inj 1,000 ML @ 100 mls/hr IV 844 / 844 .CONT .Q10H [facility] Rx#:[id number] KCl 20 mEq Premix Inj 20 meq In 200 / 200 30 / 30 100 ml @ 50 mls/hr IV.SIG ONCE ONE Rx#:[id number] Oral 240 / 240 480 / 480 Other: # Voids 2 2 # Bowel Movements 1 <Latesha Baigy - 03/03/18 15:29> Vital Signs 03/02/18 13:11 03/02/18 16:00 03/02/18 19:11 Temperature 99.3 F 97.9 F Pulse Rate 125 H 107 H Respiratory Rate 20 18 Blood Pressure 148/92 H 119/81 Pulse Oximetry 96 96 96 03/02/18 20:00 03/03/18 00:00 03/03/18 04:00 Temperature 97.3 F L Pulse Rate 108 H 119 H 118 H Respiratory Rate 18 Blood Pressure 146/98 H Pulse Oximetry 97 03/03/18 08:00 03/03/18 10:17 Temperature 97.7 F Pulse Rate 130 H Respiratory Rate 22 Blood Pressure 154/107 H Pulse Oximetry 87 L 98 Intake & Output 03/02/18 03/03/18 03/03/18 18:59 06:59 18:59 Intake Total 1084 / 1084 680 / 680 30 / 30 Balance 1084 / 1084 680 / 680 30 / 30 Weight 67 kg Intake: IV 844 / 844 200 / 200 30 / 30 NS Inj 1,000 ML @ 100 mls/hr IV 844 / 844 .CONT .Q10H [facility] Rx#:[id number] KCl 20 mEq Premix Inj 20 meq In 200 / 200 30 / 30 100 ml @ 50 mls/hr IV.SIG ONCE ONE Rx#:[id number] Oral 240 / 240 480 / 480 Other: # Voids 2 2 # Bowel Movements 1 <Gil Mensah - 03/03/18 12:39> Narrative: General: She is acutely more confused than baseline. She states that she feels fatigued. HEENT: Atraumatic, moist mucous membranes Cardiac: Tachycardic with regular rhythm and without murmur Pulmonary: Non-labored breathing. Abdomen: Normal bowel sounds, non-tender without rebound or guarding, there is a palpable mass in the right upper quadrant. Neurologic: Left-sided facial droop is present. Asymmetric smile is present. Some mild slurring of speech compared to earlier, however this is happened in the past when she is more confused. She is following some commands, however has difficulty with others. She has 5 out of 5 strength in plantar flexion bilaterally, however has not perform hip flexion when asked. She has 4 / 5 strength in the shoulders bilaterally, however this may be related to poor effort. She has 45/5 account manager education strength bilaterally. <MakennaJayceealyson Swartz - 03/03/18 12:39> Assessment and Plan - Assessment (1) Stroke Code(s): I63.9 - Cerebral infarction, unspecified Status: Acute (2) Acute UTI Code(s): N39.0 - Urinary tract infection, site not specified Status: Acute (3) Acute hypokalemia Code(s): E87.6 - Hypokalemia Status: Acute (4) Altered mental status Code(s): R41.82 - Altered mental status, unspecified Status: Acute (5) Metastatic carcinoid tumor Code(s): C7B.00 - Secondary carcinoid tumors, unspecified site Status: Acute (6) Hypertension Code(s): I10 - Essential (primary) hypertension Status: Acute <Amilcar Baig - 03/03/18 15:29> (1) Stroke Code(s): I63.9 - Cerebral infarction, unspecified Status: Acute (2) Acute UTI Code(s): N39.0 - Urinary tract infection, site not specified Status: Acute (3) Acute hypokalemia Code(s): E87.6 - Hypokalemia Status: Acute (4) Altered mental status Code(s): R41.82 - Altered mental status, unspecified Status: Acute (5) Metastatic carcinoid tumor Code(s): C7B.00 - Secondary carcinoid tumors, unspecified site Status: Acute (6) Hypertension Code(s): I10 - Essential (primary) hypertension Status: Acute <KathleenGil mascorro - 03/03/18 12:04> - Assessment and Plan Patient is a 62-year-old female with a history of malignancy and altered mental status, possibly secondary to urinary tract infection. This morning stroke alert was called due to left-sided weakness. Acute stroke: -Symptoms include increased confusion and left-sided weakness -Spoke with neurology, Dr. Quiroz, he did not think she was a TPA candidate due to her malignancy with multiple metastases -CT brain and CTA of head and neck showed no acute intracranial abnormalities or abnormalities of the vasculature -Has a bed flat for 12 hours -Blood pressure goals of SBP less than 200 and DBP less than 100 per neurology -Echocardiogram -Trend troponins and EKG -Every 2 hours neuro checks times 12 hours, then every 4 hours neuro checks -MRI of the brain ordered -Aspirin 300 mg daily PA -She has had diastolic hypertension and tachycardia, 5 mg of labetalol was given , heart rate remained in the 120s. -One-time dose of 10 mg IV push labetalol, continue to monitor BP Acute UTI and AMS -She denies any dysuria, however her urinalysis showed moderate leukocyte esterase, protein, and pyuria -This may be a cause of her previous altered mental status -Continue Rocephin 1 g every 12 hours. Urine cultures were not performed. -Blood cultures showed no growth in 2 day -Has needed IM and p.o. Haldol for agitation during hospitalization Metastatic carcinoid tumor -According to her daughter this is diagnosed in the 90s, but began spreading about 1 year ago -She has sclerotic lesions in her frontal bone, lungs, a mass in her left chest wall, lesions and in her liver -We will get more history from her daughter when we are able to speak with her, further history from the patient is unobtainable due to her mental status at this time Hypokalemia -Potassium this morning was 3.2, she was getting IV potassium at the time the stroke alert was called. She got about half of that bag -Repeat BMP is currently pending Hypertension -Blood pressures here have been overall stable, however we will continue her home medication amlodipine 5 mg daily -Due to acute stroke C blood pressure goals above Fluids: Adequate p.o. intake Electrolytes: monitor and replete as needed Nutrition: Regular diet GI prophylaxis: P.o. Protonix VTE prophylaxis: Subcutaneous Lovenox <Gil Mensah - 03/03/18 12:39> - Attending Attestation See the residents documentation for details. I saw and evaluated the patient regarding the massey portions of this evaluation and agree with the residents findings and plans as written. Parts of this note were created using [employer] voice recognition software program. While efforts were made to correct any mistakes made by this software, some mistakes, errors, and omissions may remain in the final note that were not caught when the note was originally created. Plan of care was discussed and agreed upon with the patient as specifically documented in the above note. An opportunity to ask questions with explanation was provided. Patient voiced understanding on all information reviewed and discussed. <Amilcar Baig - 03/03/18 15:29>
[2018-03-03 12:46] LABS: Calcium 9.2 mg/dL (8.5-10.1); Carbon Dioxide 21.2 meq/L (21.0-32.0); Potassium 3.4 meq/L (3.5-5.1)
--- NOTE | 2018-03-03 14:35 | P.CONPAL ---
Consult Service: Palliative Care Requesting Physician: Gil Mensah Reason for Consult: a. To assist with evaluation and management of symptoms including: pain b. To assist medical decision maker(s) with: better understanding of current medical conditions; weighing benefits/burdens of medical treatment options; making medical treatment decisions. 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 She presented to the emergency room with her daughter who was reporting the patient had been having insomnia, having bizarre flight of ideas, was hallucinating, and confused. Since that time she has remained mostly confused, with periods of lucidity. She was positive for UTI This morning, patient was found with left-sided weakness and left-sided facial droop, stroke was activated. At that time, she was having dysarthria, was following some commands. Brain CT was essentially negative. She was evaluated by neurology, recommended brain MRI, EEG, echo, and a neck CT for stroke versus TIA. Additional history: Daughter indicates patient was originally diagnosed in the with carcinoid tumor. 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 She apparently was found to have metastatic disease about a year ago.She has been treated at both [facility] and [facility] over the years. At time of my visit today, daughter sitting at bedside and tearful. Patient is lying flat in the bed, does not rouse for exam. She is nonverbal does not follow commands. Daughter reports several doctors have spoken with her about hospice but she is fearful. She reports patient has been living with her for the past few years and she has been the primary caregiver. She reports about a year ago she had to recruit her brother to assist in her care as patient was having more frequent periods of confusion and agitation. Explored fears of hospice, she reports she was told that hospice medicates people to . Discussed hospice philosophy is in goals. At the end of my conversation, daughter is more receptive to meeting with hospice services discussing home care. Discussed use of medications as needed for symptom management, and that daughter would be primary caregiver and managing medications. Function/Cognitive Trajectory: Patient had a long history of multiple comorbidities. Daughter reports she was originally diagnosed with liver cancer in the s that was already metastasized at that time. Patient was fairly independent though living with her daughter. Daughter reports in the past year, she has had to have her brother assist with care. They take shifts. Daughter drops patient off at the son's home while she works. She is required increasing care over the past several months she has had more frequent episodes of confusion and agitation. Review of Systems Constitutional: Denies anorexia, Denies weight gain, Denies weight loss Eyes: Denies change in vision Ears, Nose, Mouth, and Throat: Denies change in voice, Denies dry mouth Cardiovascular: Reports chest pain (hx of) Respiratory: Reports cough Gastrointestinal: Reports heartburn (hx of), Denies vomiting Musculoskeletal: Denies joint swelling, Denies muscle weakness Skin/Breast: Denies change in skin color, Denies lesions Neurologic: Reports abnormal speech, Reports behavioral changes, Reports confusion, Reports lack of coordination Psychiatric: Reports anxiety, Reports behavioral changes, Reports confusion, Reports depression, Reports irritability, Reports memory loss, Reports sensing things others do not sense Endocrine: Denies rapid, pounding, or irregular heartbeat Hematologic/Lymphatic: Denies easy bleeding, Denies easy bruising Allergic/Immunologic: Denies GI upset with certain foods PMFSH - History History Provided By: Family Member, Medical Record - Medical History Medical History: Medical History (Last Updated 03/03/18 @ 14:30 by EDUARDA Gaviria) Hx of malignant neoplasm of bone (Acute) History of high cholesterol (Acute) Hx of primary hypertension (Acute) Hx of hysterectomy (Acute) Anxiety CHF (congestive heart failure) Hx of peptic ulcer Liver cancer Lung cancer Pancreatic tumor - Surgical History Surgical History: Surgical History (Last Updated 03/03/18 @ 14:30 by EDUARDA Gaviria) History of total left knee replacement (Acute) H/O parathyroidectomy H/O resection of stomach Status post transsphenoidal pituitary resection - Family History Family History: Family History (Last Updated 03/03/18 @ 14:31 by EDUARDA Gaviria) Mother CVA (cerebral vascular accident) - Tobacco History Second Hand Smoke Exposure: No Smoking Status: Former smoker (Quit about 35 years ago) - Alcohol History How Often Do You Have a Drink Containing Alcohol: Never - Substance Use History Substance History: No History of Abuse - Travel History Recent Travel in the [place] Within the Last 8 Weeks: No Recent Travel Out of the Country Within the Last 8 Weeks: No - Immunization History Tetanus Immunization: >5 Years Hx Influenza Vaccine This Season: No Medications and Allergies Active Medications: Active Medications Acetaminophen (Tylenol) 650 mg PO Q4H PRN PRN Reason: Temp > 100.4 Amlodipine Besylate (Norvasc) 5 mg PO DAILY [facility] Last Admin: 03/03/18 08:36 Dose: 5 mg Aspirin (Aspirin Supp) 300 mg RECTAL DAILY [facility] Last Admin: 03/03/18 10:50 Dose: 300 mg Chlorhexidine Gluconate (Chlorhexidine 2% Cloth) 3 pack TOPICAL DAILY@0400 MALLY Stop: 03/09/18 03:59 Chlorhexidine Gluconate (Chlorhexidine 2% Cloth) 3 pack TOPICAL DAILY@0400 PRN PRN Reason: Extra cloth needed Stop: 03/09/18 03:59 Enoxaparin Sodium (Lovenox Inj) 40 mg SQ Q24H [facility] Last Admin: 03/03/18 10:50 Dose: 40 mg Potassium Chloride/Sodium Chloride (Ns + Kcl 20 Meq Inj) 1,000 mls @ 100 mls/ hr IV.CONT .Q10H [facility] Last Admin: 03/03/18 13:33 Dose: 100 mls/hr Labetalol HCl (Trandate Inj) 5 mg IV.PUSH Q4H PRN PRN Reason: BLOOD PRESSURE MANAGEMENT Ondansetron HCl (Zofran Inj) 4 mg IV.PUSH Q6H PRN PRN Reason: NAUSEA OR VOMITING Pantoprazole Sodium (Protonix) 20 mg PO DAILY [facility] Last Admin: 03/03/18 08:36 Dose: 20 mg Sodium Chloride (Ns Flush) 2 ml IV.FLUSH BID [facility] Last Admin: 03/03/18 08:36 Dose: 2 ml Sodium Chloride (Ns Flush) 2 ml IV.FLUSH PRN PRN PRN Reason: FLUSH AFTER USING IV ACCESS Allergies Allergy/AdvReac Type Severity Reaction Status Date / Time amitriptyline AdvReac Severe PT STATES Verified 02/22/18 18:42 "KEEPS ME FROM URINATING" aspirin AdvReac Severe RINGING Verified 02/22/18 18:42 EARS clonazepam AdvReac Severe RINGING IN Verified 02/22/18 18:42 EARS clorazepate dipotassium AdvReac Severe RINGING IN Verified 02/22/18 18:42 EARS cyclobenzaprine AdvReac Severe EARS Verified 02/22/18 18:42 RINGING diazepam AdvReac Severe RINGING IN Verified 02/22/18 18:42 EARS lorazepam AdvReac Severe RINGING IN Verified 02/22/18 18:42 EARS midazolam AdvReac Severe RINGING IN Verified 02/22/18 18:42 EARS oxazepam AdvReac Severe RINGING IN Verified 02/22/18 18:42 EARS temazepam AdvReac Severe RINGING IN Verified 02/22/18 18:42 EARS mucinex AdvReac Intermediate Hives Uncoded 02/22/18 18:42 Home Medications Medication Instructions Recorded Confirmed Type alprazolam [Xanax] 0.25 mg PO BID PRN 11/30/17 03/01/18 History oxycodone [OxyContin] 10 mg PO Q12H 11/30/17 03/01/18 History esomeprazole magnesium [Nexium] 40 mg PO DAILY 12/01/17 03/01/18 History Advance Directives Living Will: Unknown Physical Exam Vital Signs: Vital Signs - 24 hr 03/02/18 16:00 03/02/18 19:11 03/02/18 20:00 Temperature 99.3 F 97.9 F Pulse Rate 125 H 107 H 108 H Respiratory Rate 20 18 Blood Pressure 148/92 H 119/81 Pulse Oximetry 96 96 03/03/18 00:00 03/03/18 04:00 03/03/18 08:00 Temperature 97.3 F L 97.7 F Pulse Rate 119 H 118 H 130 H Respiratory Rate 18 22 Blood Pressure 146/98 H 154/107 H Pulse Oximetry 97 87 L 03/03/18 10:07 03/03/18 10:11 03/03/18 10:17 Temperature Pulse Rate 133 H 137 H Respiratory Rate 30 H 29 H Blood Pressure 172/115 H Pulse Oximetry 94 L 93 L 98 03/03/18 10:36 03/03/18 11:00 03/03/18 11:30 Temperature Pulse Rate 110 H 120 H 122 H Respiratory Rate 33 H 34 H 37 H Blood Pressure 135/97 H 144/105 H 144/94 H Pulse Oximetry 93 L 91 L 94 L 03/03/18 12:00 Temperature 98.8 F Pulse Rate 124 H Respiratory Rate 34 H Blood Pressure 152/96 H Pulse Oximetry 94 L I&O: Intake & Output 03/01/18 03/02/18 03/03/18 03/04/18 06:59 06:59 06:59 06:59 Intake Total 3356 / 3356 1764 / 1764 Balance 3356 / 3356 1764 / 1764 Weight 78 kg 67.4 kg 67 kg Physical Exam: CONSTITUTIONAL/GENERAL: This is an adequately nourished patient, in no apparent distress. TUBES/LINES/DRAINS: Nasal cannula, peripheral IV SKIN: No jaundice, rashes, or lesions. Ecchymoses on upper extremities. No wounds seen anteriorly. Skin temperature appropriate. Not diaphoretic. HEAD: Atraumatic. Normocephalic. EYES: Pupils equal and round and reactive. ENT: . Nose without bleeding or purulent drainage. Throat without visible erythema, exudates, masses, or lesions. NECK: Trachea midline. Supple, nontender. No palpable thyroid enlargement or nodularity. CARDIOVASCULAR: Regular rate and rhythm without murmurs, gallops, or rubs. No JVD. Peripheral pulses symmetric. RESPIRATORY/CHEST: Symmetric, unlabored respirations. Clear to auscultation. Breath sounds equal bilaterally. No wheezes, rales, or rhonchi. GASTROINTESTINAL: Abdomen soft, non-tender, nondistended. No hepato-splenomegaly , or palpable masses. No guarding. Bowel sounds present. GENITOURINARY: Without palpable bladder distension. Ochoa catheter in place. MUSCULOSKELETAL: Extremities without clubbing, cyanosis, or edema. No joint effusion noted. No calf tenderness. No mottling or clubbing. LYMPHATICS: No palpable cervical or supraclavicular adenopathy. NEUROLOGICAL: Does not rouse to tactile stimulation or voice. PSYCHIATRIC: No obvious anxiety/depression. no apparent hallucinations or other psychotic thought process. Diagnostic Tests Laboratory: Laboratory Results - last 72 hr 03/01/18 03/01/18 03/01/18 04:15 06:10 06:10 WBC 9.2 RBC 3.98 L Hgb 11.3 L Hct 33.2 L MCV 83.4 MCH 28.3 MCHC 34.0 RDW 17.5 H Plt Count 373 MPV 8.2 Prelim Diff (Auto) Neut % (Auto) 86.2 H Lymph % (Auto) 7.2 L [place] % (Auto) 5.9 Eos % (Auto) 0.3 Baso % (Auto) 0.4 Neut # (Auto) 7.9 H Lymph # (Auto) 0.7 L [place] # (Auto) 0.5 Eos # (Auto) 0.0 Baso # (Auto) 0.0 WBC Differential . Diff Scan Differential Comment Auto diff final Platelet Estimate Platelet Morphology Hematology Comments PT INR APTT Fibrinogen Sodium 137 Potassium 2.6 L* Chloride 103 Carbon Dioxide 23.7 Anion Gap 10 BUN 7 Creatinine 0.64 Estimated GFR Greater than 89 POC Glucose Random Glucose 150 H Lactic Acid Calcium 9.3 Magnesium 1.8 Total Bilirubin 0.9 AST 41 H ALT 45 Alkaline Phosphatase 355 H Total Creatine Kinase Troponin I Total Protein 7.4 Albumin 2.9 L Urine Color Yellow Urine Clarity Hazy H Urine pH 6.0 Ur Specific [place] 1.008 Urine Protein 30 H Urine Glucose (UA) Negative Urine Ketones Negative Urine Occult Blood Negative Urine Nitrate Negative Urine Bilirubin Negative Urine Urobilinogen Less than 2 Ur Leukocyte Esterase Moderate H Urine RBC 1 Urine WBC 16 H Ur Squamous Epith Cells 1 Amorphous Sediment Rare H Hyaline Casts 1 Urine Mucus Few H Ur Microscopic Review Not Reportable Nasal Screen MRSA (PCR) Blood Type MTS Gel Crossmatch 03/01/18 03/01/18 03/02/18 13:25 16:39 09:32 WBC 7.1 RBC 3.87 L Hgb 10.6 L Hct 33.0 L MCV 85.1 MCH 27.4 MCHC 32.2 RDW 18.0 H Plt Count 370 MPV 8.4 Prelim Diff (Auto) Neut % (Auto) 77.5 H Lymph % (Auto) 10.4 [place] % (Auto) 9.2 H Eos % (Auto) 1.5 Baso % (Auto) 1.4 Neut # (Auto) 5.5 Lymph # (Auto) 0.7 L [place] # (Auto) 0.7 Eos # (Auto) 0.1 Baso # (Auto) 0.1 WBC Differential . Diff Scan Differential Comment Auto diff final Platelet Estimate Platelet Morphology Hematology Comments PT INR APTT Fibrinogen Sodium 141 Potassium 3.6 D Chloride 110 H Carbon Dioxide 21.9 Anion Gap 9 BUN 7 Creatinine 0.65 Estimated GFR Greater than 89 POC Glucose Random Glucose 122 H Lactic Acid 0.8 Calcium 8.9 Magnesium Total Bilirubin AST ALT Alkaline Phosphatase Total Creatine Kinase Troponin I Total Protein Albumin Urine Color Urine Clarity Urine pH Ur Specific [place] Urine Protein Urine Glucose (UA) Urine Ketones Urine Occult Blood Urine Nitrate Urine Bilirubin Urine Urobilinogen Ur Leukocyte Esterase Urine RBC Urine WBC Ur Squamous Epith Cells Amorphous Sediment Hyaline Casts Urine Mucus Ur Microscopic Review Nasal Screen MRSA (PCR) Blood Type MTS Gel Crossmatch 03/02/18 03/02/18 03/02/18 09:32 11:33 15:56 WBC RBC Hgb Hct MCV MCH MCHC RDW Plt Count MPV Prelim Diff (Auto) Neut % (Auto) Lymph % (Auto) [place] % (Auto) Eos % (Auto) Baso % (Auto) Neut # (Auto) Lymph # (Auto) [place] # (Auto) Eos # (Auto) Baso # (Auto) WBC Differential Diff Scan Differential Comment Platelet Estimate Platelet Morphology Hematology Comments PT INR APTT Fibrinogen Sodium 143 142 Potassium 2.9 L* 2.9 L* Chloride 111 H 111 H Carbon Dioxide 23.3 22.6 Anion Gap 9 8 BUN 8 8 Creatinine 0.69 0.85 Estimated GFR Greater than 89 82 L POC Glucose 123 H Random Glucose 135 H 150 H Lactic Acid Calcium 8.7 8.2 L Magnesium Total Bilirubin AST ALT Alkaline Phosphatase Total Creatine Kinase Troponin I Total Protein Albumin Urine Color Urine Clarity Urine pH Ur Specific [place] Urine Protein Urine Glucose (UA) Urine Ketones Urine Occult Blood Urine Nitrate Urine Bilirubin Urine Urobilinogen Ur Leukocyte Esterase Urine RBC Urine WBC Ur Squamous Epith Cells Amorphous Sediment Hyaline Casts Urine Mucus Ur Microscopic Review Nasal Screen MRSA (PCR) Blood Type [facility] Gel Crossmatch 03/02/18 03/02/18 03/03/18 15:56 17:35 04:30 WBC 8.7 RBC 4.02 Hgb 11.2 L Hct 34.0 L MCV 84.4 MCH 28.0 MCHC 33.1 RDW 17.7 H Plt Count 374 MPV 8.8 Prelim Diff (Auto) Neut % (Auto) 78.5 H Lymph % (Auto) 11.1 [place] % (Auto) 7.5 Eos % (Auto) 1.5 Baso % (Auto) 1.4 Neut # (Auto) 6.8 Lymph # (Auto) 1.0 [place] # (Auto) 0.7 Eos # (Auto) 0.1 Baso # (Auto) 0.1 WBC Differential . Diff Scan Differential Comment Auto diff final Platelet Estimate Platelet Morphology Hematology Comments PT INR APTT Fibrinogen Sodium Potassium Chloride Carbon Dioxide Anion Gap BUN Creatinine Estimated GFR POC Glucose 128 H Random Glucose Lactic Acid Calcium Magnesium 1.4 L Total Bilirubin AST ALT Alkaline Phosphatase Total Creatine Kinase Troponin I Total Protein Albumin Urine Color Urine Clarity Urine pH Ur Specific [place] Urine Protein Urine Glucose (UA) Urine Ketones Urine Occult Blood Urine Nitrate Urine Bilirubin Urine Urobilinogen Ur Leukocyte Esterase Urine RBC Urine WBC Ur Squamous Epith Cells Amorphous Sediment Hyaline Casts Urine Mucus Ur Microscopic Review Nasal Screen MRSA (PCR) Blood Type MTS Gel Crossmatch 03/03/18 03/03/18 03/03/18 04:30 09:04 10:12 WBC RBC Hgb Hct MCV MCH MCHC RDW Plt Count MPV Prelim Diff (Auto) Neut % (Auto) Lymph % (Auto) [place] % (Auto) Eos % (Auto) Baso % (Auto) Neut # (Auto) Lymph # (Auto) [place] # (Auto) Eos # (Auto) Baso # (Auto) WBC Differential Diff Scan Differential Comment Platelet Estimate Platelet Morphology Hematology Comments PT INR APTT Fibrinogen Sodium 143 Potassium 3.2 L Chloride 112 H Carbon Dioxide 21.8 Anion Gap 9 BUN 6 L Creatinine 0.77 Estimated GFR Greater than 89 POC Glucose 161 H Random Glucose 134 H Lactic Acid Calcium 8.7 Magnesium Total Bilirubin AST ALT Alkaline Phosphatase Total Creatine Kinase Troponin I Total Protein Albumin Urine Color Urine Clarity Urine pH Ur Specific [place] Urine Protein Urine Glucose (UA) Urine Ketones Urine Occult Blood Urine Nitrate Urine Bilirubin Urine Urobilinogen Ur Leukocyte Esterase Urine RBC Urine WBC Ur Squamous Epith Cells Amorphous Sediment Hyaline Casts Urine Mucus Ur Microscopic Review Nasal Screen MRSA (PCR) Not detected Blood Type [email or web address] Gel Crossmatch 03/03/18 03/03/18 03/03/18 10:25 10:42 10:42 WBC 10.7 RBC 4.65 Hgb 12.9 Hct 39.6 MCV 85.1 MCH 27.7 MCHC 32.5 RDW 18.6 H Plt Count 233 D MPV 9.6 Prelim Diff (Auto) Slide review pending Neut % (Auto) 90.9 H Lymph % (Auto) 3.7 L [place] % (Auto) 4.8 Eos % (Auto) 0.1 Baso % (Auto) 0.5 Neut # (Auto) 9.7 H Lymph # (Auto) 0.4 L [place] # (Auto) 0.5 Eos # (Auto) 0.0 Baso # (Auto) 0.1 WBC Differential . Diff Scan Auto diff confirmed Differential Comment . Platelet Estimate Normal Platelet Morphology Clumped H Hematology Comments PT INR APTT Fibrinogen Sodium Potassium Chloride Carbon Dioxide Anion Gap BUN Creatinine Estimated GFR POC Glucose Random Glucose Lactic Acid Calcium Magnesium Total Bilirubin AST ALT Alkaline Phosphatase Total Creatine Kinase Troponin I 0.09 H Total Protein Albumin Urine Color Urine Clarity Urine pH Ur Specific [place] Urine Protein Urine Glucose (UA) Urine Ketones Urine Occult Blood Urine Nitrate Urine Bilirubin Urine Urobilinogen Ur Leukocyte Esterase Urine RBC Urine WBC Ur Squamous Epith Cells Amorphous Sediment Hyaline Casts Urine Mucus Ur Microscopic Review Nasal Screen MRSA (PCR) Blood Type O Positive MTS Gel Crossmatch See Detail 03/03/18 03/03/18 03/03/18 10:42 10:42 10:42 WBC RBC Hgb Hct MCV MCH MCHC RDW Plt Count MPV Prelim Diff (Auto) Neut % (Auto) Lymph % (Auto) [place] % (Auto) Eos % (Auto) Baso % (Auto) Neut # (Auto) Lymph # (Auto) [place] # (Auto) Eos # (Auto) Baso # (Auto) WBC Differential Diff Scan Differential Comment Platelet Estimate Platelet Morphology Hematology Comments PT 11.4 INR 1.1 APTT 23.1 L Fibrinogen 309 Sodium 144 Potassium 3.4 L Chloride 113 H Carbon Dioxide 21.2 Anion Gap 10 BUN 8 Creatinine 0.83 Estimated GFR 85 L POC Glucose Random Glucose 152 H Lactic Acid Calcium 9.2 Magnesium Total Bilirubin AST ALT Alkaline Phosphatase Total Creatine Kinase 61 Troponin I Total Protein Albumin Urine Color Urine Clarity Urine pH Ur Specific [place] Urine Protein Urine Glucose (UA) Urine Ketones Urine Occult Blood Urine Nitrate Urine Bilirubin Urine Urobilinogen Ur Leukocyte Esterase Urine RBC Urine WBC Ur Squamous Epith Cells Amorphous Sediment Hyaline Casts Urine Mucus Ur Microscopic Review Nasal Screen MRSA (PCR) Blood Type MTS Gel Crossmatch Result Diagrams: 03/03/18 10:42 03/03/18 10:42 Microbiology: Microbiology 03/01/18 13:34 Aerobic Blood Culture - Preliminary Blood - Peripheral No growth in 2 days Anaerobic Blood Culture - Preliminary No growth in 2 days 03/01/18 13:28 Aerobic Blood Culture - Preliminary Blood - Peripheral No growth in 2 days Anaerobic Blood Culture - Preliminary No growth in 2 days Imaging: Abnormal Lab Results 03/02/18 03/02/18 03/02/18 15:56 15:56 17:35 WBC RBC Hgb Hct MCV MCH MCHC RDW Plt Count MPV Prelim Diff (Auto) Neut % (Auto) Lymph % (Auto) [place] % (Auto) Eos % (Auto) Baso % (Auto) Neut # (Auto) Lymph # (Auto) [place] # (Auto) Eos # (Auto) Baso # (Auto) WBC Differential Diff Scan Differential Comment Platelet Estimate Platelet Morphology Hematology Comments PT INR APTT Fibrinogen Sodium 142 Potassium 2.9 L* Chloride 111 H Carbon Dioxide 22.6 Anion Gap 8 BUN 8 Creatinine 0.85 Estimated GFR 82 L POC Glucose 128 H Random Glucose 150 H Calcium 8.2 L Magnesium 1.4 L Total Creatine Kinase Troponin I Nasal Screen MRSA (PCR) Blood Type MTS Gel Crossmatch 03/03/18 03/03/18 03/03/18 04:30 04:30 09:04 WBC 8.7 RBC 4.02 Hgb 11.2 L Hct 34.0 L MCV 84.4 MCH 28.0 MCHC 33.1 RDW 17.7 H Plt Count 374 MPV 8.8 Prelim Diff (Auto) Neut % (Auto) 78.5 H Lymph % (Auto) 11.1 [place] % (Auto) 7.5 Eos % (Auto) 1.5 Baso % (Auto) 1.4 Neut # (Auto) 6.8 Lymph # (Auto) 1.0 [place] # (Auto) 0.7 Eos # (Auto) 0.1 Baso # (Auto) 0.1 WBC Differential . Diff Scan Differential Comment Auto diff final Platelet Estimate Platelet Morphology Hematology Comments PT INR APTT Fibrinogen Sodium 143 Potassium 3.2 L Chloride 112 H Carbon Dioxide 21.8 Anion Gap 9 BUN 6 L Creatinine 0.77 Estimated GFR Greater than 89 POC Glucose 161 H Random Glucose 134 H Calcium 8.7 Magnesium Total Creatine Kinase Troponin I Nasal Screen MRSA (PCR) Blood Type MTS Gel Crossmatch 03/03/18 03/03/18 03/03/18 10:12 10:25 10:42 WBC RBC Hgb Hct MCV MCH MCHC RDW Plt Count MPV Prelim Diff (Auto) Neut % (Auto) Lymph % (Auto) [place] % (Auto) Eos % (Auto) Baso % (Auto) Neut # (Auto) Lymph # (Auto) [place] # (Auto) Eos # (Auto) Baso # (Auto) WBC Differential Diff Scan Differential Comment Platelet Estimate Platelet Morphology Hematology Comments PT INR APTT Fibrinogen Sodium Potassium Chloride Carbon Dioxide Anion Gap BUN Creatinine Estimated GFR POC Glucose Random Glucose Calcium Magnesium Total Creatine Kinase Troponin I 0.09 H Nasal Screen MRSA (PCR) Not detected Blood Type O Positive MTS Gel Crossmatch See Detail 03/03/18 03/03/18 03/03/18 10:42 10:42 10:42 WBC 10.7 RBC 4.65 Hgb 12.9 Hct 39.6 MCV 85.1 MCH 27.7 MCHC 32.5 RDW 18.6 H Plt Count 233 D MPV 9.6 Prelim Diff (Auto) Slide review pending Neut % (Auto) 90.9 H Lymph % (Auto) 3.7 L [place] % (Auto) 4.8 Eos % (Auto) 0.1 Baso % (Auto) 0.5 Neut # (Auto) 9.7 H Lymph # (Auto) 0.4 L [place] # (Auto) 0.5 Eos # (Auto) 0.0 Baso # (Auto) 0.1 WBC Differential . Diff Scan Auto diff confirmed Differential Comment . Platelet Estimate Normal Platelet Morphology Clumped H Hematology Comments PT 11.4 INR 1.1 APTT 23.1 L Fibrinogen 309 Sodium Potassium Chloride Carbon Dioxide Anion Gap BUN Creatinine Estimated GFR POC Glucose Random Glucose Calcium Magnesium Total Creatine Kinase 61 Troponin I Nasal Screen MRSA (PCR) Blood Type MTS Gel Crossmatch 03/03/18 10:42 WBC RBC Hgb Hct MCV MCH MCHC RDW Plt Count MPV Prelim Diff (Auto) Neut % (Auto) Lymph % (Auto) [place] % (Auto) Eos % (Auto) Baso % (Auto) Neut # (Auto) Lymph # (Auto) [place] # (Auto) Eos # (Auto) Baso # (Auto) WBC Differential Diff Scan Differential Comment Platelet Estimate Platelet Morphology Hematology Comments PT INR APTT Fibrinogen Sodium 144 Potassium 3.4 L Chloride 113 H Carbon Dioxide 21.2 Anion Gap 10 BUN 8 Creatinine 0.83 Estimated GFR 85 L POC Glucose Random Glucose 152 H Calcium 9.2 Magnesium Total Creatine Kinase Troponin I Nasal Screen MRSA (PCR) Blood Type MTS Gel Crossmatch Patient/Family Conference Present at Family Conference: Andreia Liz Family Conference Location: Bedside Issues Discussed: * Palliative care role, purpose, approach * Additional medical, psychosocial, and spiritual history * Patients general health, functional status, and cognitive changes in the months leading up to the current hospitalization * Patient/family understanding of the current medical problems * Patient/family understanding of prognosis * Patients goals of care as best understood from advance directives and/or conversations and/or values * Current medical treatment options and benefits/burdens of those options * Likely scenarios comparing ongoing aggressive care with a transition to comfort measures only * Questions answered to the best of my ability * Palliative care contact information provided Assessment and Plan - Symptom Scale (1) Confused 0-10 Scale: Unable to quantify (2) Pain 0-10 Scale: Unable to quantify (3) Weakness 0-10 Scale: Unable to quantify Pertinent Non-Medical Issues: Psychosocial: Patient is originally from [place], [place]. She is retired and disabled nurse. Prior to this hospitalization, patient was living with her daughter who is her primary caregiver for the past several years. Daughter indicates over the past year she has had a recurrent her brother at night while she works. Daughter reports she drops patient off at night picks her up in the morning. Spiritual: [employer] available Legal: Patient is currently incapacitated to make her own decisions. It is unlikely she will gain capacity. She has 2 children and no known healthcare surrogate or legal proxy. Per [place] statutes, decision making would fall to both children by default. Ethical issues impacting care: None Important Contacts: Daughter Shalonda [phone] Son Dimitri Hicks: [phone] Prognosis: Patient has a long history of widespread metastatic cancer. She had been apparently doing pretty well until the past couple years. Daughter indicates that she has had more confusion and required more care over the past year. Given new diagnosis of brain metastases/frontal bone metastases, and strokelike symptoms, she likely has a limited life expectancy. She would be medically eligible for hospice services if family's goals are appropriate. Code Status: Full Code Plan: Legal decision maker: Patient is currently incapacitated to make her own decisions. It is unlikely she will gain capacity. She has 2 children and no known healthcare surrogate or legal proxy. Per [place] statutes, decision making would fall to both children by default. Goals: Daughter now receptive to transition to hospice care. She reports she was fearful at first, as multiple people have told her that hospice would "medicate people to ," she would like her mother to be comfortable but does not want hospice to "kill her."After lengthy discussion regarding hospice goals and philosophy, patient's daughter is receptive to meeting with hospice for information and will likely transition to hospice in the coming days. CODE STATUS: FULL CODE SYMPTOMS: --Pain: Patient appears comfortable, daughter denies any recent history of pain. Anticipatory pain secondary to immobility. Has Tylenol ordered. Daughter is fearful of too much pain medications. Will need ongoing support regarding comfort measures. --Confusion: Has had more frequent periods of confusion and agitation requiring continuous care/supervision from family members. Daughter reports effective management with low dose Haldol. Recommend scheduling low-dose Haldol. Palliative care will continue to follow during hospital course as condition evolves, to assist patient/decision-maker with understanding of medical conditions, weighing benefits/burdens of treatment options, for clarification of goals of treatment. Additionally will assist with any symptoms of palliative concern Appreciation Thank you for the opportunity to participate in the care of [facility]. Attestation Attestation: To help prompt me to consider important information that might be impacting today's encounter and assessment, information from prior notes written by myself or my colleagues may have been "brought forward" into today's note. My signature on this note, however, is an attestation that I personally performed the exam, history, and/or decision-making noted today, and, unless otherwise indicated, the interactions with patient, family, and staff as well as the review of records all occurred today. I also attest that the listed assessment and stated plan reflect my best clinical judgment today based on the combination of historical information, prior notes, and today's exam/ interactions. When time spent is documented, it refers only to time spent today by the signer, or if indicated, combined time spent today by collaborating physician/nurse practitioner.
[2018-03-03 15:13] LABS: Bilirubin,Urine Negative (Negative); Clarity,Urine Clear (Clear); Color,Urine Amber (Yellw/Straw); Glucose,Urine (UA) Negative (Negative); Leukocyte Esterase,Urine Negative (Negative); Mucus,Urine Many /lpf (Occasional); Nitrite,Urine Negative (Negative)
[2018-03-03] MEDS: Labetalol HCl Inj 100 MG/20 ML Vial IV.PUSH PRN ×2 (16:08→20:31)
--- NOTE | 2018-03-03 16:09 | ECHRPT ---
Indication: CVA/TIA CONCLUSIONS Moderately dilated left ventricle. Wall thickness is normal. The left ventricular systolic function is severely reduced with an estimated ejection fraction of 15 %. There is mild posterobasal hypokinesis; all other dean are severely hypokinetic. The left atrial size is mildly dilated. Moderate mitral valve regurgitation. Mild thickening of the aortic valve leaflets. Trace aortic valve regurgitation. There is mild tricuspid regurgitation. The estimated pulmonary arterial pressure is 46 mmHg. BP: / HR: Rhythm: MEASUREMENTS (Male / Female) Normal Values Technical Quality: 2D ECHO LV Diastolic Diameter PLAX 5.9 cm 4.2 - 5.9 / 3.9 - 5.3 cm LV Systolic Diameter PLAX 5.4 cm IVS Diastolic Thickness 1.0 cm 0.6 - 1.0 / 0.6 - 0.9 cm LVPW Diastolic Thickness 0.7 cm 0.6 - 1.0 / 0.6 - 0.9 cm LV Relative Wall Thickness 0.3 RV Internal Dim ED PLAX 2.9 cm LVOT Diameter 2.0 cm Aortic Root Diameter 2.9 cm LA Systolic Diameter LX 3.7 cm 3.0 - 4.0 / 2.7 - 3.8 cm LV Ejection Fraction MOD BP 18.0 % >= 55 % LV Ejection Fraction MOD 4C 17.3 % LV Ejection Fraction 4C AL 15.6 % LV Ejection Fraction MOD 2C 16.4 % LV Ejection Fraction 2C AL 21.3 % M-MODE Aortic Root Diameter MM 3.2 cm LA Systolic Diameter MM 4.7 cm LA Ao Ratio MM 1.5 AV Cusp Separation MM 1.9 cm DOPPLER AV Peak Velocity 93.4 cm/s AV Peak Gradient 3.5 mmHg AI Peak Velocity 220.0 cm/s AI Peak Gradient 19.4 mmHg AI Pressure Half Time 242.0 ms Mitral E Point Velocity 116.0 cm/s TR Peak Velocity 301.0 cm/s TR Peak Gradient 36.2 mmHg Right Atrial Pressure 10.0 mmHg Pulmonary Artery Systolic Pressu 46.2 mmHg Right Ventricular Systolic Press 46.2 mmHg PV Peak Velocity 102.0 cm/s PV Peak Gradient 4.2 mmHg FINDINGS LEFT VENTRICLE Moderately dilated left ventricle. Wall thickness is normal. The left ventricular systolic function is severely reduced with an estimated ejection fraction of 15 %. There is mild posterobasal hypokinesis; all other dean are severely hypokinetic. RIGHT VENTRICLE Normal right ventricular size and systolic function. LEFT ATRIUM The left atrial size is mildly dilated. RIGHT ATRIUM The right atrial size is normal. ATRIAL SEPTUM Normal atrial septal thickness without atrial level shunting by limited color doppler interrogation. AORTA The aortic root and proximal ascending aorta are normal in size on limited imaging. MITRAL VALVE Moderate mitral valve regurgitation. AORTIC VALVE Mild thickening of the aortic valve leaflets. Trace aortic valve regurgitation. TRICUSPID VALVE The estimated pulmonary arterial pressure is 46 mmHg. There is mild tricuspid regurgitation. PULMONARY VALVE No pulmonary valve regurgitation or stenosis. VESSELS The inferior vena cava is normal in size. PERICARDIUM No pericardial effusion. Donald Toledo MD (Electronically Signed) Final Date:03 March 2018 16:08
--- NOTE | 2018-03-03 16:54 | P.PNONC ---
Subjective Interval history: Late entry. I saw pt at around 0715. She is weak but denies CP or sob. She is oriented and requested not to restrain her. She denies abdominal pain. Objective Vital Signs/Intake & Output: Vital Signs 03/02/18 19:11 03/02/18 20:00 03/03/18 00:00 Temperature 97.9 F 97.3 F L Pulse Rate 107 H 108 H 119 H Respiratory Rate 18 18 Blood Pressure 119/81 146/98 H Pulse Oximetry 96 97 03/03/18 04:00 03/03/18 08:00 03/03/18 10:07 Temperature 97.7 F Pulse Rate 118 H 130 H 133 H Respiratory Rate 22 30 H Blood Pressure 154/107 H Pulse Oximetry 87 L 94 L 03/03/18 10:11 03/03/18 10:17 03/03/18 10:36 Temperature Pulse Rate 137 H 110 H Respiratory Rate 29 H 33 H Blood Pressure 172/115 H 135/97 H Pulse Oximetry 93 L 98 93 L 03/03/18 11:00 03/03/18 11:30 03/03/18 12:00 Temperature 98.8 F Pulse Rate 120 H 122 H 124 H Respiratory Rate 34 H 37 H 34 H Blood Pressure 144/105 H 144/94 H 152/96 H Pulse Oximetry 91 L 94 L 94 L 03/03/18 12:30 03/03/18 12:32 03/03/18 12:35 Temperature Pulse Rate 127 H 127 H 128 H Respiratory Rate 39 H 34 H 34 H Blood Pressure 159/117 H 159/116 H 150/108 H Pulse Oximetry 94 L 94 L 93 L 03/03/18 12:44 03/03/18 13:00 03/03/18 13:30 Temperature Pulse Rate 106 H 104 H 106 H Respiratory Rate 38 H 29 H 26 H Blood Pressure 130/92 H 133/88 128/91 H Pulse Oximetry 95 97 97 03/03/18 14:00 03/03/18 14:30 03/03/18 15:00 Temperature Pulse Rate 110 H 109 H 112 H Respiratory Rate 32 H 35 H 30 H Blood Pressure 134/96 H 143/88 H 140/102 H Pulse Oximetry 96 96 98 03/03/18 15:30 03/03/18 15:40 03/03/18 16:00 Temperature 98.1 F Pulse Rate 117 H 115 H 122 H Respiratory Rate 31 H 32 H 20 Blood Pressure 148/108 H 150/101 H 153/112 H Pulse Oximetry 96 97 97 Intake & Output 03/02/18 03/03/18 03/03/18 18:59 06:59 18:59 Intake Total 1084 / 1084 680 / 680 30 / 30 Balance 1084 / 1084 680 / 680 30 / 30 Weight 67 kg Intake: IV 844 / 844 200 / 200 30 / 30 NS Inj 1,000 ML @ 100 mls/hr IV 844 / 844 .CONT .Q10H MALLY Rx#:[id number] KCl 20 mEq Premix Inj 20 meq In 200 / 200 30 / 30 100 ml @ 50 mls/hr IV.SIG ONCE ONE Rx#:[id number] Oral 240 / 240 480 / 480 Other: # Voids 2 2 # Bowel Movements 1 Result Diagrams: 03/03/18 10:42 03/03/18 10:42 Laboratory Results: Laboratory Results - last 24 hr 03/02/18 03/02/18 03/02/18 15:56 15:56 17:35 WBC RBC Hgb Hct MCV MCH MCHC RDW Plt Count MPV Prelim Diff (Auto) Neut % (Auto) Lymph % (Auto) [place] % (Auto) Eos % (Auto) Baso % (Auto) Neut # (Auto) Lymph # (Auto) [place] # (Auto) Eos # (Auto) Baso # (Auto) WBC Differential Diff Scan Differential Comment Platelet Estimate Platelet Morphology Hematology Comments PT INR APTT Fibrinogen Sodium 142 Potassium 2.9 L* Chloride 111 H Carbon Dioxide 22.6 Anion Gap 8 BUN 8 Creatinine 0.85 Estimated GFR 82 L POC Glucose 128 H Random Glucose 150 H Calcium 8.2 L Magnesium 1.4 L Total Creatine Kinase Troponin I Urine Color Urine Clarity Urine pH Ur Specific [place] Urine Protein Urine Glucose (UA) Urine Ketones Urine Occult Blood Urine Nitrate Urine Bilirubin Urine Urobilinogen Ur Leukocyte Esterase Urine RBC Urine WBC Urine Mucus Micro UA Comment Ur Microscopic Review Urine Culture Comments Nasal Screen MRSA (PCR) Blood Type Antibody Screen Antibody Identification MTS Gel Crossmatch Bld Prod Order Comment 03/03/18 03/03/18 03/03/18 04:30 04:30 09:04 WBC 8.7 RBC 4.02 Hgb 11.2 L Hct 34.0 L MCV 84.4 MCH 28.0 MCHC 33.1 RDW 17.7 H Plt Count 374 MPV 8.8 Prelim Diff (Auto) Neut % (Auto) 78.5 H Lymph % (Auto) 11.1 [place] % (Auto) 7.5 Eos % (Auto) 1.5 Baso % (Auto) 1.4 Neut # (Auto) 6.8 Lymph # (Auto) 1.0 [place] # (Auto) 0.7 Eos # (Auto) 0.1 Baso # (Auto) 0.1 WBC Differential . Diff Scan Differential Comment Auto diff final Platelet Estimate Platelet Morphology Hematology Comments PT INR APTT Fibrinogen Sodium 143 Potassium 3.2 L Chloride 112 H Carbon Dioxide 21.8 Anion Gap 9 BUN 6 L Creatinine 0.77 Estimated GFR Greater than 89 POC Glucose 161 H Random Glucose 134 H Calcium 8.7 Magnesium Total Creatine Kinase Troponin I Urine Color Urine Clarity Urine pH Ur Specific [place] Urine Protein Urine Glucose (UA) Urine Ketones Urine Occult Blood Urine Nitrate Urine Bilirubin Urine Urobilinogen Ur Leukocyte Esterase Urine RBC Urine WBC Urine Mucus Micro UA Comment Ur Microscopic Review Urine Culture Comments Nasal Screen MRSA (PCR) Blood Type Antibody Screen Antibody Identification MTS Gel Crossmatch Bld Prod Order Comment 03/03/18 03/03/18 03/03/18 10:12 10:25 10:42 WBC RBC Hgb Hct MCV MCH MCHC RDW Plt Count MPV Prelim Diff (Auto) Neut % (Auto) Lymph % (Auto) [place] % (Auto) Eos % (Auto) Baso % (Auto) Neut # (Auto) Lymph # (Auto) [place] # (Auto) Eos # (Auto) Baso # (Auto) WBC Differential Diff Scan Differential Comment Platelet Estimate Platelet Morphology Hematology Comments PT INR APTT Fibrinogen Sodium Potassium Chloride Carbon Dioxide Anion Gap BUN Creatinine Estimated GFR POC Glucose Random Glucose Calcium Magnesium Total Creatine Kinase Troponin I 0.09 H Urine Color Urine Clarity Urine pH Ur Specific [place] Urine Protein Urine Glucose (UA) Urine Ketones Urine Occult Blood Urine Nitrate Urine Bilirubin Urine Urobilinogen Ur Leukocyte Esterase Urine RBC Urine WBC Urine Mucus Micro UA Comment Ur Microscopic Review Urine Culture Comments Nasal Screen MRSA (PCR) Not detected Blood Type O Positive Antibody Screen Positive H Antibody Identification MTS Gel Crossmatch See Detail Bld Prod Order Comment 03/03/18 03/03/18 03/03/18 10:42 10:42 10:42 WBC 10.7 RBC 4.65 Hgb 12.9 Hct 39.6 MCV 85.1 MCH 27.7 MCHC 32.5 RDW 18.6 H Plt Count 233 D MPV 9.6 Prelim Diff (Auto) Slide review pending Neut % (Auto) 90.9 H Lymph % (Auto) 3.7 L [place] % (Auto) 4.8 Eos % (Auto) 0.1 Baso % (Auto) 0.5 Neut # (Auto) 9.7 H Lymph # (Auto) 0.4 L [place] # (Auto) 0.5 Eos # (Auto) 0.0 Baso # (Auto) 0.1 WBC Differential . Diff Scan Auto diff confirmed Differential Comment . Platelet Estimate Normal Platelet Morphology Clumped H Hematology Comments PT 11.4 INR 1.1 APTT 23.1 L Fibrinogen 309 Sodium Potassium Chloride Carbon Dioxide Anion Gap BUN Creatinine Estimated GFR POC Glucose Random Glucose Calcium Magnesium Total Creatine Kinase 61 Troponin I Urine Color Urine Clarity Urine pH Ur Specific [place] Urine Protein Urine Glucose (UA) Urine Ketones Urine Occult Blood Urine Nitrate Urine Bilirubin Urine Urobilinogen Ur Leukocyte Esterase Urine RBC Urine WBC Urine Mucus Micro UA Comment Ur Microscopic Review Urine Culture Comments Nasal Screen MRSA (PCR) Blood Type Antibody Screen Antibody Identification MTS Gel Crossmatch Bld Prod Order Comment 03/03/18 03/03/18 03/03/18 10:42 13:55 14:17 WBC RBC Hgb Hct MCV MCH MCHC RDW Plt Count MPV Prelim Diff (Auto) Neut % (Auto) Lymph % (Auto) [place] % (Auto) Eos % (Auto) Baso % (Auto) Neut # (Auto) Lymph # (Auto) [place] # (Auto) Eos # (Auto) Baso # (Auto) WBC Differential Diff Scan Differential Comment Platelet Estimate Platelet Morphology Hematology Comments PT INR APTT Fibrinogen Sodium 144 Potassium 3.4 L Chloride 113 H Carbon Dioxide 21.2 Anion Gap 10 BUN 8 Creatinine 0.83 Estimated GFR 85 L POC Glucose Random Glucose 152 H Calcium 9.2 Magnesium Total Creatine Kinase Troponin I Urine Color [place] Urine Clarity Clear Urine pH 6.0 Ur Specific [place] Greater than 1.060 H Urine Protein 100 H Urine Glucose (UA) Negative Urine Ketones Negative Urine Occult Blood Negative Urine Nitrate Negative Urine Bilirubin Negative Urine Urobilinogen Less than 2 Ur Leukocyte Esterase Negative Urine RBC 7 H Urine WBC 1 Urine Mucus Many H Micro UA Comment Culture not ind Ur Microscopic Review Not Reportable Urine Culture Comments Culture not ind Nasal Screen MRSA (PCR) Blood Type Antibody Screen Antibody Identification Non-Specific Agglutinin MTS Gel Crossmatch Bld Prod Order Comment 03/03/18 16:35 WBC RBC Hgb Hct MCV MCH MCHC RDW Plt Count MPV Prelim Diff (Auto) Neut % (Auto) Lymph % (Auto) [place] % (Auto) Eos % (Auto) Baso % (Auto) Neut # (Auto) Lymph # (Auto) [place] # (Auto) Eos # (Auto) Baso # (Auto) WBC Differential Diff Scan Differential Comment Platelet Estimate Platelet Morphology Hematology Comments PT INR APTT Fibrinogen Sodium Potassium Chloride Carbon Dioxide Anion Gap BUN Creatinine Estimated GFR POC Glucose 129 H Random Glucose Calcium Magnesium Total Creatine Kinase Troponin I Urine Color Urine Clarity Urine pH Ur Specific [place] Urine Protein Urine Glucose (UA) Urine Ketones Urine Occult Blood Urine Nitrate Urine Bilirubin Urine Urobilinogen Ur Leukocyte Esterase Urine RBC Urine WBC Urine Mucus Micro UA Comment Ur Microscopic Review Urine Culture Comments Nasal Screen MRSA (PCR) Blood Type Antibody Screen Antibody Identification MTS Gel Crossmatch Bld Prod Order Comment Culture Results: Microbiology 03/01/18 13:34 Aerobic Blood Culture - Preliminary Blood - Peripheral No growth in 2 days Anaerobic Blood Culture - Preliminary No growth in 2 days 03/01/18 13:28 Aerobic Blood Culture - Preliminary Blood - Peripheral No growth in 2 days Anaerobic Blood Culture - Preliminary No growth in 2 days Imaging Studies: Impressions Chest X-Ray 03/03/18 00:00 CONCLUSION: 1. Increased opacity in the right hemithorax representing a large pleural effusion with associated consolidation and atelectasis. 2. There are also new interstitial changes in the left lung and today's CT demonstrated a new left pleural effusion. Head CT 03/03/18 09:38 CONCLUSION: 1. No focal or acute intracranial hemorrhage. 2. No significant change compared to the prior examination. Report was called by [ Dr. Roman to Dr. Quiroz at 9:52 AM] Head CTA 03/03/18 09:38 CONCLUSION: 1. Unremarkable CTA of the brain. Report was called by [Dr. Roman to Dr. Quiroz at 10:11 AM. ] Neck CTA 03/03/18 09:38 CONCLUSION: 1. No acute abnormality is identified within the neck arterial vasculature. 2. Lymphadenopathy in the mediastinum and supraclavicular regions bilaterally unchanged from the prior chest CT from 2 days ago. However, the right pleural effusion has increased in volume and the left pleural effusion is new. Medications: Active Medications Generic Name Dose Route Start Last Admin Trade Name [place] PRN Reason Stop Dose Admin Amlodipine Besylate 5 mg 03/03/18 09:00 03/03/18 08:36 Norvasc PO 5 mg DAILY MALLY Administration Aspirin 300 mg 03/03/18 10:30 03/03/18 10:50 Aspirin Supp RECTAL 300 mg DAILY MALLY Administration Enoxaparin Sodium 40 mg 03/01/18 11:00 03/03/18 10:50 Lovenox Inj SQ 40 mg Q24H MALLY Administration Potassium Chloride/Sodium Chloride 1,000 mls @ 100 mls/hr 03/03/18 13:00 06/16 13:33 Ns + Kcl 20 Meq Inj IV.CONT 100 mls/hr .Q10H MALLY Administration Labetalol HCl 5 mg 03/03/18 10:26 03/03/18 16:08 Trandate Inj IV.PUSH 5 mg Q4H PRN Administration BLOOD PRESSURE MANAGEMENT Pantoprazole Sodium 20 mg 03/03/18 09:00 03/03/18 08:36 Protonix PO 20 mg DAILY MALLY Administration Sodium Chloride 2 ml 03/01/18 21:00 03/03/18 08:36 Ns Flush IV.FLUSH 2 ml BID MALLY Administration Objective Remarks: GENERAL: Well-nourished, well-developed patient. Weak SKIN: Warm and dry. HEAD: Normocephalic. EYES: No scleral icterus. No injection or drainage. NECK: Supple, trachea midline. No JVD or lymphadenopathy. LYMPHATIC: No adenopathy. CARDIOVASCULAR: Regular rate and rhythm without murmurs. RESPIRATORY: Breath sounds equal bilaterally anteriorly. No accessory muscle use. GASTROINTESTINAL: Abdomen soft, non-tender, nondistended. EXTREMITIES: No cyanosis, or edema. MUSCULOSKELETAL: Adequate muscle tone. Large left chest wall mass slightly tender. NEUROLOGICAL: No obvious focal deficit. Oriented x 3. Assessment/Plan - Plan 62-year-old female admitted with altered mental status. CT scan showed multiple liver masses with mediastinal adenopathy. The patient reports she has had biopsies in the past of her cancer at both [facility] and [facility]. She had diagnosis of metastatic carcinoid cancer and has been getting treatment at [facility] with Sandostatin and chemoembolization to the liver. 1. Patient is supposed to f/u at [facility] next week for treatment. I am not repeating any test for the carcinoid tumor at this time. 2. AMS due to infection. Improving. Continue supportive care per attending.
--- NOTE | 2018-03-03 18:47 | MG ---
cc: Negrito Quiroz MD, PhD TECHNIQUE: A 17-channel EEG. DESCRIPTION: Background rhythm shows muscle artifact. There is a generalized alpha rhythm, frequency 8 Hz. There is quite a bit of slowing as well in the theta range. No lateralizing features are identified. There are no epileptiform features present. Photic results in a modest driving response. INTERPRETATION: Mildly abnormal study consistent with a mild encephalopathy. No epileptiform features identified. Negrito Quiroz MD, PhD JON/serenity , 06:28 PM , 06:31 PM
--- NOTE | 2018-03-03 19:06 | ECG ---
Date Performed: 03/03/2018 Time Performed: 17:25:15 PTAGE: 62 years EKG: SINUS TACHYCARDIA WITH SHORT KS INTERVAL WITH OCCASIONAL SUPRAVENTRICULAR PREMATURE COMPLEX ES MINIMAL VOLTAGE CRITERIA FOR LVH, CONSIDER NORMAL VARIANT ABNORMAL QRS-T ANGLE ABNORMAL ECG Compar ed to prior electrocardiogram, Rate has slowed and nonspecific T-wave changes are more prominent. PREVIOUS TRACING : 03/03/2018 10.14 DOCTOR: Babak Disla Interpretating Date/Time 03/03/2018 19:05:17
--- NOTE | 2018-03-03 22:06 | ECG ---
Date Performed: 03/03/2018 Time Performed: 10:14:53 PTAGE: 62 years EKG: SINUS TACHYCARDIA WITH SHORT AR INTERVAL ABNORMAL RHYTHM ECG PREVIOUS TRACING : 03/01/2018 08.35 Since the previous tracing, no significant change noted DOCTOR: Virginia Tipton Interpretating Date/Time 03/03/2018 22:04:29
[2018-03-04] MEDS: Labetalol HCl Inj 100 MG/20 ML Vial IV.PUSH PRN (01:07)
[2018-03-04] MEDS ORDERED: Chlorhexidine Gluconate 2% 1 Pack (2 Cloths) TOPICAL PRN (04:00)
[2018-03-04 07:24] LABS: Baso % (Auto) 0.3 % (0.0-2.0); Hematocrit 36.4 % (35.0-46.0); Lymph # (Auto) 0.6 th/mm3 (1.0-4.8); Lymph % (Auto) 5.3 % (9.0-44.0); Mean Corpuscular HGB Conc 32.9 % (32.0-36.0); Mean Corpuscular Hemoglobin 27.7 pg (27.0-34.0); Mean Corpuscular Volume 84.3 fL (80.0-100.0); Mean Platelet Volume 8.8 fL (7.0-11.0); Mono # (Auto) 0.8 th/mm3 (0.0-0.9); Mono % (Auto) 6.4 % (0.0-8.0); Neut # (Auto) 10.7 th/mm3 (1.8-7.7); Platelet Count 385 th/mm3 (150-450); Red Blood Count 4.31 mil/mm3 (4.00-5.30); White Blood Count 12.2 th/mm3 (4.0-11.0)
[2018-03-04 08:03] LABS: Alanine Aminotransferase 36 U/L (10-53); Albumin 2.5 g/dL (3.4-5.0); Anion Gap 10 meq/L (5-15); Aspartate Aminotransferase 30 U/L (15-37); Blood Urea Nitrogen 17 mg/dL (7-18); Calcium 9.1 mg/dL (8.5-10.1); Carbon Dioxide 20.3 meq/L (21.0-32.0); Chloride 117 meq/L (98-107); Glomerular Filtration Rate 76 mL/min (>89); Glucose,Random 144 mg/dL (74-106); Sodium 147 meq/L (136-145)
[2018-03-04 08:05] LABS: Alkaline Phosphatase 360 U/L (45-117); Total Protein 6.6 g/dL (6.4-8.2)
[2018-03-04] MEDS: Pantoprazole Sodium 20 MG DR Tablet PO SCH (08:14)
[2018-03-04] MEDS: amLODIPine 5 MG Tablet PO SCH (08:14)
[2018-03-04] MEDS ORDERED: ALPRAZolam 0.25 MG Tablet PO PRN (08:49)
[2018-03-04] MEDS: Aspirin 325 MG Tablet PO SCH (09:10)
[2018-03-04 09:29] LABS: Troponin I 0.12 ng/mL (0.02-0.05)
--- NOTE | 2018-03-04 11:09 | P.PNFP ---
Subjective Interval history: No acute events overnight. Her speech is jumbled this morning and she is having visual and auditory hallucinations. She keeps asking about filling out an application. She does not respond appropriately to questions, but she does deny current pain. I had an extensive discussion with her daughter this morning. She has been seen by palliative care and hospice. They are planning on transitioning her to hospice at home. She wises that we do not put her through an MRI. <Gil Mensah - 03/04/18 11:10> Results - Labs Result diagrams: 03/04/18 06:13 03/04/18 06:13 <Amilcar Baig - 03/05/18 12:00> Abnormal lab results 03/03/18 03/03/18 03/03/18 Range/Units 10:25 10:42 10:42 WBC (4.0-11.0) th/mm3 RDW 18.6 H (11.6-17.2) % Neut % (Auto) 90.9 H (16.0-70.0) % Lymph % (Auto) 3.7 L (9.0-44.0) % Neut # (Auto) 9.7 H (1.8-7.7) th/mm3 Lymph # (Auto) 0.4 L (1.0-4.8) th/mm3 Platelet Morphology Clumped H (Normal) APTT (23.4-31.7) sec Sodium (136-145) meq/L Potassium (3.5-5.1) meq/L Chloride (98-107) meq/L Carbon Dioxide (21.0-32.0) meq/L Estimated GFR (>89) mL/min POC Glucose (68-110) mg/dl Random Glucose (74-106) mg/dL Alkaline Phosphatase (45-117) U/L Troponin I 0.09 H (0.02-0.05) ng/mL Albumin (3.4-5.0) g/dL Ur Specific [place] (1.002-1.035) Urine Protein (Neg-Trace) mg/dL Urine RBC (0-3) /hpf Urine Mucus (Occasional) /lpf Antibody Screen Positive H MTS Gel Crossmatch See Detail 03/03/18 03/03/18 03/03/18 Range/Units 10:42 10:42 13:55 WBC (4.0-11.0) th/mm3 RDW (11.6-17.2) % Neut % (Auto) (16.0-70.0) % Lymph % (Auto) (9.0-44.0) % Neut # (Auto) (1.8-7.7) th/mm3 Lymph # (Auto) (1.0-4.8) th/mm3 Platelet Morphology (Normal) APTT 23.1 L (23.4-31.7) sec Sodium (136-145) meq/L Potassium 3.4 L (3.5-5.1) meq/L Chloride 113 H (98-107) meq/L Carbon Dioxide (21.0-32.0) meq/L Estimated GFR 85 L (>89) mL/min POC Glucose (68-110) mg/dl Random Glucose 152 H (74-106) mg/dL Alkaline Phosphatase (45-117) U/L Troponin I (0.02-0.05) ng/mL Albumin (3.4-5.0) g/dL Ur Specific [place] Greater than 1.060 H (1.002-1.035) Urine Protein 100 H (Neg-Trace) mg/dL Urine RBC 7 H (0-3) /hpf Urine Mucus Many H (Occasional) /lpf Antibody Screen MTS Gel Crossmatch 03/03/18 03/03/18 03/03/18 Range/Units 15:44 16:35 23:34 WBC (4.0-11.0) th/mm3 RDW (11.6-17.2) % Neut % (Auto) (16.0-70.0) % Lymph % (Auto) (9.0-44.0) % Neut # (Auto) (1.8-7.7) th/mm3 Lymph # (Auto) (1.0-4.8) th/mm3 Platelet Morphology (Normal) APTT (23.4-31.7) sec Sodium (136-145) meq/L Potassium (3.5-5.1) meq/L Chloride (98-107) meq/L Carbon Dioxide (21.0-32.0) meq/L Estimated GFR (>89) mL/min POC Glucose 129 H (68-110) mg/dl Random Glucose (74-106) mg/dL Alkaline Phosphatase (45-117) U/L Troponin I 0.18 H 0.15 H (0.02-0.05) ng/mL Albumin (3.4-5.0) g/dL Ur Specific [place] (1.002-1.035) Urine Protein (Neg-Trace) mg/dL Urine RBC (0-3) /hpf Urine Mucus (Occasional) /lpf Antibody Screen MTS Gel Crossmatch 03/04/18 03/04/18 03/04/18 Range/Units 06:13 06:13 08:50 WBC 12.2 H (4.0-11.0) th/mm3 RDW 19.0 H (11.6-17.2) % Neut % (Auto) 88.0 H (16.0-70.0) % Lymph % (Auto) 5.3 L (9.0-44.0) % Neut # (Auto) 10.7 H (1.8-7.7) th/mm3 Lymph # (Auto) 0.6 L (1.0-4.8) th/mm3 Platelet Morphology (Normal) APTT (23.4-31.7) sec Sodium 147 H (136-145) meq/L Potassium (3.5-5.1) meq/L Chloride 117 H (98-107) meq/L Carbon Dioxide 20.3 L (21.0-32.0) meq/L Estimated GFR 76 L (>89) mL/min POC Glucose (68-110) mg/dl Random Glucose 144 H (74-106) mg/dL Alkaline Phosphatase 360 H (45-117) U/L Troponin I 0.12 H (0.02-0.05) ng/mL Albumin 2.5 L (3.4-5.0) g/dL Ur Specific [place] (1.002-1.035) Urine Protein (Neg-Trace) mg/dL Urine RBC (0-3) /hpf Urine Mucus (Occasional) /lpf Antibody Screen MTS Gel Crossmatch Short CBC 03/03/18 03/04/18 Range/Units 10:42 06:13 WBC 10.7 12.2 H (4.0-11.0) th/mm3 Hgb 12.9 12.0 (11.6-15.3) gm/dL Hct 39.6 36.4 (35.0-46.0) % Plt Count 233 D 385 D (150-450) th/mm3 BMP 03/03/18 03/04/18 10:42 06:13 Sodium 144 147 H Potassium 3.4 L 4.0 Chloride 113 H 117 H Carbon Dioxide 21.2 20.3 L BUN 8 17 Creatinine 0.83 0.91 Calcium 9.2 9.1 Cardiac Enzymes 03/03/18 03/03/18 03/03/18 Range/Units 10:42 10:42 15:44 Total Creatine Kinase 61 (26-192) U/L Troponin I 0.09 H 0.18 H (0.02-0.05) ng/mL 03/03/18 03/04/18 Range/Units 23:34 08:50 Total Creatine Kinase 40 (26-192) U/L Troponin I 0.15 H 0.12 H (0.02-0.05) ng/mL Liver Function 03/04/18 Range/Units 06:13 Total Bilirubin 1.0 (0.2-1.0) mg/dL AST 30 (15-37) U/L ALT 36 (10-53) U/L Alkaline Phosphatase 360 H (45-117) U/L Albumin 2.5 L (3.4-5.0) g/dL Urine 03/03/18 Range/Units 13:55 Urine Color Leticia (Yellw/Straw) Urine Clarity Clear (Clear) Urine pH 6.0 (5.0-8.5) Ur Specific [place] Greater than 1.060 H (1.002-1.035) Urine Protein 100 H (Neg-Trace) mg/dL Urine Glucose (UA) Negative (Negative) mg/dL <Gil Mensah - 03/04/18 11:09> - Imaging Impressions Chest X-Ray 03/05/18 00:00 CONCLUSION: Interval improvement with less interstitial edema. Moderate failure remains Large right pleural effusion. <Amilcar Baig - 03/05/18 12:00> Impressions Chest X-Ray 03/03/18 00:00 CONCLUSION: 1. Increased opacity in the right hemithorax representing a large pleural effusion with associated consolidation and atelectasis. 2. There are also new interstitial changes in the left lung and today's CT demonstrated a new left pleural effusion. Neck CTA 03/03/18 09:38 CONCLUSION: 1. No acute abnormality is identified within the neck arterial vasculature. 2. Lymphadenopathy in the mediastinum and supraclavicular regions bilaterally unchanged from the prior chest CT from 2 days ago. However, the right pleural effusion has increased in volume and the left pleural effusion is new. <Gil Mensah - 03/04/18 11:09> Physical Exam Vital signs: Vital Signs 03/04/18 13:00 03/04/18 14:00 03/04/18 15:00 Temperature Pulse Rate 124 H 122 H 122 H Respiratory Rate 40 H 41 H 41 H Blood Pressure 116/83 115/88 118/88 Pulse Oximetry 94 L 92 L 93 L 03/04/18 16:00 03/04/18 17:00 03/04/18 18:00 Temperature 99.0 F Pulse Rate 116 H 117 H 109 H Respiratory Rate 39 H 41 H 33 H Blood Pressure 129/100 H 127/90 121/83 Pulse Oximetry 94 L 95 96 03/04/18 19:00 03/04/18 19:06 03/04/18 19:33 Temperature Pulse Rate 121 H 124 H Respiratory Rate 51 H 48 H Blood Pressure 127/89 Pulse Oximetry 96 96 96 03/04/18 20:00 03/04/18 21:00 03/04/18 22:00 Temperature 98.3 F Pulse Rate 105 H 109 H 112 H Respiratory Rate 36 H 30 H 31 H Blood Pressure 119/85 121/85 124/96 H Pulse Oximetry 94 L 93 L 93 L 03/04/18 23:00 03/05/18 00:00 03/05/18 00:01 Temperature 98 F Pulse Rate 118 H 123 H 124 H Respiratory Rate 45 H 43 H 48 H Blood Pressure 123/87 150/102 H Pulse Oximetry 95 96 99 03/05/18 00:37 03/05/18 00:38 03/05/18 01:00 Temperature Pulse Rate 112 H 110 H 101 H Respiratory Rate 39 H 40 H 29 H Blood Pressure 142/102 H 141/105 H 123/84 Pulse Oximetry 100 100 100 03/05/18 02:00 03/05/18 03:00 03/05/18 04:00 Temperature 98 F Pulse Rate 108 H 111 H 110 H Respiratory Rate 30 H 28 H 32 H Blood Pressure 128/94 H 138/98 H 127/94 H Pulse Oximetry 100 93 L 100 03/05/18 05:00 03/05/18 07:35 Temperature Pulse Rate 111 H Respiratory Rate 32 H Blood Pressure 138/88 Pulse Oximetry 100 100 Intake & Output 03/04/18 03/05/18 03/05/18 18:59 06:59 18:59 Intake Total 1166 / 1166 1100 / 1100 Output Total 100 / 100 700 / 700 Balance 1066 / 1066 400 / 400 Weight 67.9 kg Intake: IV 1166 / 1166 1000 / 1000 NS + KCl 20 mEq Inj 1,000 ML @ 1166 / 1166 100 mls/hr IV.CONT .Q10H [facility] Rx #:[id number] NS Inj 1,000 ML @ 100 mls/hr IV 1000 / 1000 .CONT .Q10H [facility]ALLY Rx#:[id number] Oral 100 / 100 Output: Urine 100 / 100 700 / 700 <Amilcar Baig - 03/05/18 12:00> Vital Signs 03/03/18 11:00 03/03/18 11:30 03/03/18 12:00 Temperature 98.8 F Pulse Rate 120 H 122 H 124 H Respiratory Rate 34 H 37 H 34 H Blood Pressure 144/105 H 144/94 H 152/96 H Pulse Oximetry 91 L 94 L 94 L 03/03/18 12:30 03/03/18 12:32 03/03/18 12:35 Temperature Pulse Rate 127 H 127 H 128 H Respiratory Rate 39 H 34 H 34 H Blood Pressure 159/117 H 159/116 H 150/108 H Pulse Oximetry 94 L 94 L 93 L 03/03/18 12:44 03/03/18 13:00 03/03/18 13:30 Temperature Pulse Rate 106 H 104 H 106 H Respiratory Rate 38 H 29 H 26 H Blood Pressure 130/92 H 133/88 128/91 H Pulse Oximetry 95 97 97 03/03/18 14:00 03/03/18 14:30 03/03/18 15:00 Temperature Pulse Rate 110 H 109 H 112 H Respiratory Rate 32 H 35 H 30 H Blood Pressure 134/96 H 143/88 H 140/102 H Pulse Oximetry 96 96 98 03/03/18 15:30 03/03/18 15:40 03/03/18 16:00 Temperature 98.1 F Pulse Rate 117 H 115 H 122 H Respiratory Rate 31 H 32 H 20 Blood Pressure 148/108 H 150/101 H 153/112 H Pulse Oximetry 96 97 97 03/03/18 16:33 03/03/18 17:00 03/03/18 17:30 Temperature Pulse Rate 110 H 107 H 109 H Respiratory Rate 41 H 35 H 36 H Blood Pressure 132/96 H 135/96 H 144/91 H Pulse Oximetry 98 97 97 03/03/18 18:00 03/03/18 18:30 03/03/18 19:00 Temperature Pulse Rate 111 H 117 H 114 H Respiratory Rate 39 H 38 H 32 H Blood Pressure 142/102 H 150/108 H 149/96 H Pulse Oximetry 98 98 97 03/03/18 19:30 03/03/18 19:31 03/03/18 20:00 Temperature 98.6 F Pulse Rate 112 H 118 H Respiratory Rate 32 H 41 H Blood Pressure 147/97 H 152/102 H Pulse Oximetry 99 100 96 03/03/18 20:18 03/03/18 20:30 03/03/18 21:00 Temperature Pulse Rate 117 H 116 H 104 H Respiratory Rate 35 H 35 H 37 H Blood Pressure 146/103 H 136/95 H 135/99 H Pulse Oximetry 96 96 96 03/03/18 22:00 03/03/18 22:06 03/03/18 23:00 Temperature Pulse Rate 115 H 115 H 113 H Respiratory Rate 43 H 43 H 46 H Blood Pressure 157/92 H 139/104 H Pulse Oximetry 97 97 95 03/04/18 00:00 03/04/18 01:00 03/04/18 02:00 Temperature 98.6 F Pulse Rate 113 H 117 H Respiratory Rate 38 H 33 H 49 H Blood Pressure 138/100 H 148/109 H 138/99 H Pulse Oximetry 96 96 95 03/04/18 03:00 03/04/18 04:00 03/04/18 05:00 Temperature 98.6 F Pulse Rate 111 H 117 H 121 H Respiratory Rate 35 H 43 H 44 H Blood Pressure 139/95 H 142/97 H 147/101 H Pulse Oximetry 96 97 96 03/04/18 06:00 03/04/18 07:00 03/04/18 07:01 Temperature Pulse Rate 109 H 130 H 129 H Respiratory Rate 36 H 28 H 28 H Blood Pressure 131/88 138/104 H Pulse Oximetry 97 91 L 94 L 03/04/18 08:00 Temperature 97.7 F Pulse Rate 115 H Respiratory Rate 28 H Blood Pressure 130/97 H Pulse Oximetry 96 Intake & Output 03/03/18 03/04/18 03/04/18 18:59 06:59 18:59 Intake Total 30 / 30 1120 / 1120 950 / 950 Output Total 200 / 200 Balance -170 / -170 1120 / 1120 950 / 950 Weight 67 kg Intake: IV 30 / 30 1000 / 1000 950 / 950 NS + KCl 20 mEq Inj 1,000 ML @ 1000 / 1000 950 / 950 100 mls/hr IV.CONT .Q10H [facility] Rx #:[id number] KCl 20 mEq Premix Inj 20 meq In 30 / 30 100 ml @ 50 mls/hr IV.SIG ONCE ONE Rx#:[id number] Oral 120 / 120 Output: Urine Amount (Catheter) 200 / 200 Straight 200 / 200 Other: # Voids 2 # Incontinent Voids 1 Date of Last Bowel Movement 03/03/18 # Bowel Movements 0 <Gil Mensah - 03/04/18 11:09> Narrative: General: Diaphoretic, confused HEENT: Atraumatic, moist mucous membranes Cardiac: Tachycardic with regular rhythm and without murmur Pulmonary: Tachypnea, without retractions, breath sounds clear bilaterally Abdomen: Normal bowel sounds, non-tender without rebound or guarding, there is a palpable mass in the right upper quadrant. Neurologic: Left-sided facial droop is present. Asymmetric smile is present. She continues to have difficulty following commands and some dysarthria. 4-5 strength in all 4 extremities. <Gil Mensah - 03/04/18 11:09> - Urinary Catheter Management Straight Cath placed during this visit: no <Amilcar Baig - 03/05/18 12:00> no <Gil Mensah - 03/04/18 11:10> Assessment and Plan - Assessment (1) Pneumonia Code(s): J18.9 - Pneumonia, unspecified organism Status: Acute (2) Stroke Code(s): I63.9 - Cerebral infarction, unspecified Status: Acute (3) HFrEF (heart failure with reduced ejection fraction) Code(s): I50.20 - Unspecified systolic (congestive) heart failure Status: Acute (4) Acute UTI Code(s): N39.0 - Urinary tract infection, site not specified Status: Acute (5) Acute hypokalemia Code(s): E87.6 - Hypokalemia Status: Acute (6) Altered mental status Code(s): R41.82 - Altered mental status, unspecified Status: Acute (7) Metastatic carcinoid tumor Code(s): 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.00 - Secondary carcinoid tumors, unspecified site Status: Acute (8) Hypertension Code(s): I10 - Essential (primary) hypertension Status: Acute <Amilcar Baig - 03/05/18 12:00> (1) Stroke Code(s): I63.9 - Cerebral infarction, unspecified Status: Acute (2) HFrEF (heart failure with reduced ejection fraction) Code(s): I50.20 - Unspecified systolic (congestive) heart failure Status: Acute (3) Acute UTI Code(s): N39.0 - Urinary tract infection, site not specified Status: Acute (4) Acute hypokalemia Code(s): E87.6 - Hypokalemia Status: Acute (5) Altered mental status Code(s): R41.82 - Altered mental status, unspecified Status: Acute (6) Metastatic carcinoid tumor Code(s): C7B.00 - Secondary carcinoid tumors, unspecified site Status: Acute (7) Hypertension Code(s): I10 - Essential (primary) hypertension Status: Acute <Gil Mensah - 03/04/18 11:09> - Assessment and Plan Patient is a 62-year-old female with a history of malignancy with multiple metastases and altered mental status, possibly secondary to urinary tract infection. While hospitalized she experienced acute increase in confusion and left-sided weakness. Stroke alert was called. Imaging of the brain has been negative thus far, however she has not had an MRI. She remains confused and is having both auditory and visual hallucinations. She does not have decision-making capacity and not designated a healthcare surrogate. Her daughter has been at bedside multiple times and through extensive discussion has opted for comfort care. Her son is not able to negative the hospital due to probation we have not been able to contact him on his cell phone yet, however he has been speaking with his sister about her care. Comfort care: -They have decided to change her CODE STATUS to DO NOT RESUSCITATE -Haldol 0.5 mg twice daily scheduled -MRI of the brain canceled due to comfort care and wishes of the family Acute stroke: -Blood pressure goals of SBP less than 200 and DBP less than 100 per neurology -Every 4 hours neuro checks -Aspirin 300 mg daily [place] Heart failure: Ejection fraction of 15% on echo yesterday and troponins have had mild elevation -Consult cardiology, however she is opted for comfort care at this time Acute UTI -Continue Rocephin 1 g every 12 hours while hospitalized -We will switch to p.o. 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 intake Electrolytes: monitor and replete as needed Nutrition: Mechanical soft diet GI prophylaxis: P.o. Protonix VTE prophylaxis: Subcutaneous Lovenox <Gil Mensah - 03/04/18 11:09> - Attending Attestation See the residents documentation for details. I saw and evaluated the patient regarding the massey portions of this evaluation and agree with the residents findings and plans as written. Parts of this note were created using [email or web address] voice recognition software program. While efforts were made to correct any mistakes made by this software, some mistakes, errors, and omissions may remain in the final note that were not caught when the note was originally created. Plan of care was discussed and agreed upon with the patient as specifically documented in the above note. An opportunity to ask questions with explanation was provided. Patient voiced understanding on all information reviewed and discussed. <Amilcar Baig - 03/05/18 12:00> <Amilcar Baig Filed: 03/05/18 12:00> (1) Pneumonia Qualifiers: Qualified Code(s): J18.1 - Lobar pneumonia, unspecified organism <Amilcar Baig Filed: 03/05/18 12:00> (1) Pneumonia Qualifiers: Qualified Code(s): J18.1 - Lobar pneumonia, unspecified organism
--- NOTE | 2018-03-04 11:24 | P.PNONC ---
Subjective Interval history: Pt was stroke alert yesterday after being found with left sided weakness and facial droop. Currently in ICU, neuro workup in progress. Pt's son and daughter at the bedside, awaiting hospice consult today. Pt lying in bed, awake, in no acute distress. Objective Vital Signs/Intake & Output: Vital Signs 03/03/18 11:30 03/03/18 12:00 03/03/18 12:30 Temperature 98.8 F Pulse Rate 122 H 124 H 127 H Respiratory Rate 37 H 34 H 39 H Blood Pressure 144/94 H 152/96 H 159/117 H Pulse Oximetry 94 L 94 L 94 L 03/03/18 12:32 03/03/18 12:35 03/03/18 12:44 Temperature Pulse Rate 127 H 128 H 106 H Respiratory Rate 34 H 34 H 38 H Blood Pressure 159/116 H 150/108 H 130/92 H Pulse Oximetry 94 L 93 L 95 03/03/18 13:00 03/03/18 13:30 03/03/18 14:00 Temperature Pulse Rate 104 H 106 H 110 H Respiratory Rate 29 H 26 H 32 H Blood Pressure 133/88 128/91 H 134/96 H Pulse Oximetry 97 97 96 03/03/18 14:30 03/03/18 15:00 03/03/18 15:30 Temperature Pulse Rate 109 H 112 H 117 H Respiratory Rate 35 H 30 H 31 H Blood Pressure 143/88 H 140/102 H 148/108 H Pulse Oximetry 96 98 96 03/03/18 15:40 03/03/18 16:00 03/03/18 16:33 Temperature 98.1 F Pulse Rate 115 H 122 H 110 H Respiratory Rate 32 H 20 41 H Blood Pressure 150/101 H 153/112 H 132/96 H Pulse Oximetry 97 97 98 03/03/18 17:00 03/03/18 17:30 03/03/18 18:00 Temperature Pulse Rate 107 H 109 H 111 H Respiratory Rate 35 H 36 H 39 H Blood Pressure 135/96 H 144/91 H 142/102 H Pulse Oximetry 97 97 98 03/03/18 18:30 03/03/18 19:00 03/03/18 19:30 Temperature Pulse Rate 117 H 114 H 112 H Respiratory Rate 38 H 32 H 32 H Blood Pressure 150/108 H 149/96 H 147/97 H Pulse Oximetry 98 97 99 03/03/18 19:31 03/03/18 20:00 03/03/18 20:18 Temperature 98.6 F Pulse Rate 118 H 117 H Respiratory Rate 41 H 35 H Blood Pressure 152/102 H 146/103 H Pulse Oximetry 100 96 96 03/03/18 20:30 03/03/18 21:00 03/03/18 22:00 Temperature Pulse Rate 116 H 104 H 115 H Respiratory Rate 35 H 37 H 43 H Blood Pressure 136/95 H 135/99 H Pulse Oximetry 96 96 97 03/03/18 22:06 03/03/18 23:00 03/04/18 00:00 Temperature 98.6 F Pulse Rate 115 H 113 H 113 H Respiratory Rate 43 H 46 H 38 H Blood Pressure 157/92 H 139/104 H 138/100 H Pulse Oximetry 97 95 96 03/04/18 01:00 03/04/18 02:00 03/04/18 03:00 Temperature Pulse Rate 117 H 111 H Respiratory Rate 33 H 49 H 35 H Blood Pressure 148/109 H 138/99 H 139/95 H Pulse Oximetry 96 95 96 03/04/18 04:00 03/04/18 05:00 03/04/18 06:00 Temperature 98.6 F Pulse Rate 117 H 121 H 109 H Respiratory Rate 43 H 44 H 36 H Blood Pressure 142/97 H 147/101 H 131/88 Pulse Oximetry 97 96 97 03/04/18 07:00 03/04/18 07:01 03/04/18 08:00 Temperature 97.7 F Pulse Rate 130 H 129 H 115 H Respiratory Rate 28 H 28 H 28 H Blood Pressure 138/104 H 130/97 H Pulse Oximetry 91 L 94 L 96 Intake & Output 03/03/18 03/04/18 03/04/18 18:59 06:59 18:59 Intake Total 30 / 30 1120 / 1120 950 / 950 Output Total 200 / 200 Balance -170 / -170 1120 / 1120 950 / 950 Weight 67 kg Intake: IV 30 / 30 1000 / 1000 950 / 950 NS + KCl 20 mEq Inj 1,000 ML @ 1000 / 1000 950 / 950 100 mls/hr IV.CONT .Q10H [facility] Rx #:[id number] KCl 20 mEq Premix Inj 20 meq In 30 / 30 100 ml @ 50 mls/hr IV.SIG ONCE ONE Rx#:[id number] Oral 120 / 120 Output: Urine Amount (Catheter) 200 / 200 Straight 200 / 200 Other: # Voids 2 # Incontinent Voids 1 Date of Last Bowel Movement 03/03/18 # Bowel Movements 0 Result Diagrams: 03/04/18 06:13 03/04/18 06:13 Laboratory Results: Laboratory Results - last 24 hr 03/03/18 03/03/18 03/03/18 10:12 10:25 10:42 WBC RBC Hgb Hct MCV MCH MCHC RDW Plt Count MPV Prelim Diff (Auto) Neut % (Auto) Lymph % (Auto) Mccracken % (Auto) Eos % (Auto) Baso % (Auto) Neut # (Auto) Lymph # (Auto) M[place]racken # (Auto) Eos # (Auto) Baso # (Auto) WBC Differential Diff Scan Differential Comment Platelet Estimate Platelet Morphology Hematology Comments Sodium Potassium Chloride Carbon Dioxide Anion Gap BUN Creatinine Estimated GFR POC Glucose Random Glucose Calcium Total Bilirubin AST ALT Alkaline Phosphatase Total Creatine Kinase Troponin I 0.09 H Total Protein Albumin Urine Color Urine Clarity Urine pH Ur Specific [place] Urine Protein Urine Glucose (UA) Urine Ketones Urine Occult Blood Urine Nitrate Urine Bilirubin Urine Urobilinogen Ur Leukocyte Esterase Urine RBC Urine WBC Urine Mucus Micro UA Comment Ur Microscopic Review Urine Culture Comments Nasal Screen MRSA (PCR) Not detected Blood Type O Positive Antibody Screen Positive H Antibody Identification MTS Gel Crossmatch See Detail Bld Prod Order Comment 03/03/18 03/03/18 03/03/18 10:42 10:42 10:42 WBC 10.7 RBC 4.65 Hgb 12.9 Hct 39.6 MCV 85.1 MCH 27.7 MCHC 32.5 RDW 18.6 H Plt Count 233 D MPV 9.6 Prelim Diff (Auto) Slide review pending Neut % (Auto) 90.9 H Lymph % (Auto) 3.7 L Mccracken % (Auto) 4.8 Eos % (Auto) 0.1 Baso % (Auto) 0.5 Neut # (Auto) 9.7 H Lymph # (Auto) 0.4 L M[place]racken # (Auto) 0.5 Eos # (Auto) 0.0 Baso # (Auto) 0.1 WBC Differential . Diff Scan Auto diff confirmed Differential Comment . Platelet Estimate Normal Platelet Morphology Clumped H Hematology Comments Sodium 144 Potassium 3.4 L Chloride 113 H Carbon Dioxide 21.2 Anion Gap 10 BUN 8 Creatinine 0.83 Estimated GFR 85 L POC Glucose Random Glucose 152 H Calcium 9.2 Total Bilirubin AST ALT Alkaline Phosphatase Total Creatine Kinase 61 Troponin I Total Protein Albumin Urine Color Urine Clarity Urine pH Ur Specific [place] Urine Protein Urine Glucose (UA) Urine Ketones Urine Occult Blood Urine Nitrate Urine Bilirubin Urine Urobilinogen Ur Leukocyte Esterase Urine RBC Urine WBC Urine Mucus Micro UA Comment Ur Microscopic Review Urine Culture Comments Nasal Screen MRSA (PCR) Blood Type Antibody Screen Antibody Identification MTS Gel Crossmatch Bld Prod Order Comment 03/03/18 03/03/18 03/03/18 13:55 14:17 15:44 WBC RBC Hgb Hct MCV MCH MCHC RDW Plt Count MPV Prelim Diff (Auto) Neut % (Auto) Lymph % (Auto) Mccracken % (Auto) Eos % (Auto) Baso % (Auto) Neut # (Auto) Lymph # (Auto) [place]rack[place] # (Auto) Eos # (Auto) Baso # (Auto) WBC Differential Diff Scan Differential Comment Platelet Estimate Platelet Morphology Hematology Comments Sodium Potassium Chloride Carbon Dioxide Anion Gap BUN Creatinine Estimated GFR POC Glucose Random Glucose Calcium Total Bilirubin AST ALT Alkaline Phosphatase Total Creatine Kinase Troponin I 0.18 H Total Protein Albumin Urine Color Leticia Urine Clarity Clear Urine pH 6.0 Ur Specific [place] Greater than 1.060 H Urine Protein 100 H Urine Glucose (UA) Negative Urine Ketones Negative Urine Occult Blood Negative Urine Nitrate Negative Urine Bilirubin Negative Urine Urobilinogen Less than 2 Ur Leukocyte Esterase Negative Urine RBC 7 H Urine WBC 1 Urine Mucus Many H Micro UA Comment Culture not ind Ur Microscopic Review Not Reportable Urine Culture Comments Culture not ind Nasal Screen MRSA (PCR) Blood Type Antibody Screen Antibody Identification Non-Specific Agglutinin MTS Gel Crossmatch Bld Prod Order Comment 03/03/18 03/03/18 03/04/18 16:35 23:34 06:13 WBC 12.2 H RBC 4.31 Hgb 12.0 Hct 36.4 MCV 84.3 MCH 27.7 MCHC 32.9 RDW 19.0 H Plt Count 385 D MPV 8.8 Prelim Diff (Auto) Neut % (Auto) 88.0 H Lymph % (Auto) 5.3 L Mccracken % (Auto) 6.4 Eos % (Auto) 0.0 Baso % (Auto) 0.3 Neut # (Auto) 10.7 H Lymph # (Auto) 0.6 L M[place] # (Auto) 0.8 Eos # (Auto) 0.0 Baso # (Auto) 0.0 WBC Differential . Diff Scan Differential Comment Auto diff final Platelet Estimate Platelet Morphology Hematology Comments Sodium Potassium Chloride Carbon Dioxide Anion Gap BUN Creatinine Estimated GFR POC Glucose 129 H Random Glucose Calcium Total Bilirubin AST ALT Alkaline Phosphatase Total Creatine Kinase Troponin I 0.15 H Total Protein Albumin Urine Color Urine Clarity Urine pH Ur Specific [place] Urine Protein Urine Glucose (UA) Urine Ketones Urine Occult Blood Urine Nitrate Urine Bilirubin Urine Urobilinogen Ur Leukocyte Esterase Urine RBC Urine WBC Urine Mucus Micro UA Comment Ur Microscopic Review Urine Culture Comments Nasal Screen MRSA (PCR) Blood Type Antibody Screen Antibody Identification MTS Gel Crossmatch Bld Prod Order Comment 03/04/18 03/04/18 06:13 08:50 WBC RBC Hgb Hct MCV MCH MCHC RDW Plt Count MPV Prelim Diff (Auto) Neut % (Auto) Lymph % (Auto) M[place]rack[place] % (Auto) Eos % (Auto) Baso % (Auto) Neut # (Auto) Lymph # (Auto) M[place] # (Auto) Eos # (Auto) Baso # (Auto) WBC Differential Diff Scan Differential Comment Platelet Estimate Platelet Morphology Hematology Comments Sodium 147 H Potassium 4.0 Chloride 117 H Carbon Dioxide 20.3 L Anion Gap 10 BUN 17 Creatinine 0.91 Estimated GFR 76 L POC Glucose Random Glucose 144 H Calcium 9.1 Total Bilirubin 1.0 AST 30 ALT 36 Alkaline Phosphatase 360 H Total Creatine Kinase 40 Troponin I 0.12 H Total Protein 6.6 D Albumin 2.5 L Urine Color Urine Clarity Urine pH Ur Specific [place] Urine Protein Urine Glucose (UA) Urine Ketones Urine Occult Blood Urine Nitrate Urine Bilirubin Urine Urobilinogen Ur Leukocyte Esterase Urine RBC Urine WBC Urine Mucus Micro UA Comment Ur Microscopic Review Urine Culture Comments Nasal Screen MRSA (PCR) Blood Type Antibody Screen Antibody Identification MTS Gel Crossmatch Bld Prod Order Comment Culture Results: Microbiology 03/01/18 13:34 Aerobic Blood Culture - Preliminary Blood - Peripheral No growth in 3 days Anaerobic Blood Culture - Preliminary No growth in 3 days 03/01/18 13:28 Aerobic Blood Culture - Preliminary Blood - Peripheral No growth in 3 days Anaerobic Blood Culture - Preliminary No growth in 3 days Medications: Active Medications Generic Name Dose Route Start Last Admin Trade Name Freq PRN Reason Stop Dose Admin Alprazolam 0.25 mg 03/04/18 08:49 03/04/18 09:10 Xanax PO 0.25 mg BID PRN Administration ANXIETY Amlodipine Besylate 5 mg 03/03/18 09:00 03/04/18 08:14 Norvasc PO 5 mg DAILY [facility] Administration Aspirin 325 mg 03/04/18 09:00 03/04/18 09:10 Aspirin PO 325 mg DAILY [facility] Administration Enoxaparin Sodium 40 mg 03/01/18 11:00 03/03/18 10:50 Lovenox Inj SQ 40 mg Q24H [facility] Administration Labetalol HCl 5 mg 03/03/18 10:26 03/04/18 01:07 Trandate Inj IV.PUSH 5 mg Q4H PRN Administration BLOOD PRESSURE MANAGEMENT Pantoprazole Sodium 20 mg 03/03/18 09:00 03/04/18 08:14 Protonix PO 20 mg DAILY M[facility] Administration Sodium Chloride 2 ml 03/01/18 21:00 03/04/18 08:14 Ns Flush IV.FLUSH 2 ml BID [facility] Administration Sodium Chloride 2 ml 03/01/18 10:46 03/04/18 08:14 Ns Flush IV.FLUSH 2 ml PRN PRN Administration FLUSH AFTER USING IV ACCESS Objective Remarks: GENERAL: Chronically ill-appearing thin elderly female, in no acute distress. SKIN: Warm and dry. HEAD: Normocephalic. EYES: No scleral icterus. No injection or drainage. NECK: Supple, trachea midline. CARDIOVASCULAR: Regular rate and rhythm without murmurs. RESPIRATORY: Breath sounds equal bilaterally. No accessory muscle use. GASTROINTESTINAL: Abdomen soft, non-tender, nondistended. EXTREMITIES: No cyanosis, or edema. MUSCULOSKELETAL: Decreased muscle tone. NEUROLOGICAL: Awake, mumbles incomprehensible words. Assessment/Plan - Plan 62-year-old female admitted with altered mental status. CT scan showed multiple liver masses with mediastinal adenopathy. The patient reports she has had biopsies in the past of her cancer at both [facility] and [facility]. She had diagnosis of metastatic carcinoid cancer and has been getting treatment at [facility] with Sandostatin and chemoembolization to the liver. 1. Carcinoid cancer, followed at [facility]. No repeat testing at this time. 2. AMS. Patient was stroke alert yesterday, neuro workup per neurology. 3. Palliative care team met with daughter yesterday. The family is awaiting meeting with hospice today. - Attending Statement Patient Lady Mary has decided to leave the hospital against medical advice. This patient has the capacity to refuse care and understands the risks of leaving, including permanent disability and/or , and has had an opportunity to ask questions about his/her condition. The patient has been informed that he/she may return for care at any time, and follow up has been arranged/advised. Events noted. Patient is confused and very weak. Discussed with nursing staff. Family has spoken to hospice. Her daughter has consented for hospice and is waiting for her brother's consent. No other recommendation from oncology at this point.
[2018-03-04] MEDS: Enoxaparin Inj 40 MG/0.4 ML Syringe SQ SCH (11:33)
--- NOTE | 2018-03-04 12:24 | P.PNWCN ---
Wound Care Nurse Consult Additional information: Patient not seen for sacral stage I pressure injury to eval and treat. Spoke with RN Eva Brennan [facility] per RN patient is skin is intact and with erythema , patient is possibly going to hospice today. RN is keeping patient turned every 2 hours. Wound care inpatient is signing off. Please reconsult if wound care inpatient if patient has open wound to sacral area and patient is staying inpatient in hospital.
--- NOTE | 2018-03-04 16:20 | MB ---
cc: Agusto Aguilar DO DATE: 03/04/2018 REASON FOR CONSULTATION: Congestive heart failure. HISTORY OF PRESENT ILLNESS: Lady Mary is an unfortunate 62-year-old female who presented to [facility] due to altered mental status with a UTI. Apparently, she has a history of a metastatic carcinoid tumor and is being treated at [facility]. She most recently had chemotherapy. She underwent an echocardiogram which showed an ejection fraction of 15% with some wall motion abnormalities. She previously underwent an echocardiogram in November 2017, which showed an ejection fraction of 20%. I was asked to see her due to the lowered ejection fraction. Of note, while here, she had mental status change and there was a concern for a CVA. In seeing her, she is in the ICU. Her speech is mostly jumbled and difficult to understand. She does not seem to respond appropriately to questions. In speaking to the nurse, family is considering placing her on hospice, but at this time, she is not on hospice as they are waiting for more family. PAST MEDICAL HISTORY: 1. Hyperlipidemia. 2. Hypertension. 3. Metastatic carcinoid tumor with multiple liver masses and mediastinal adenopathy. 4. Dementia. 5. Recurrent UTI. PAST SURGICAL HISTORY: 1. Hysterectomy. 2. Left total knee arthroplasty. 3. Parathyroidectomy. 4. Resection of stomach. 5. Transsphenoidal pituitary resection. ALLERGIES: 1. TEMAZEPAM. 2. CLORAZEPATE. 3. LORAZEPAM. 4. DIAZEPAM. 5. OXAZEPAM. 6. ASPIRIN. 7. CLONAZEPAM. 8. MIDAZOLAM. 9. AMITRIPTYLINE. 10. CYCLOBENZAPRINE. 11. MUCINEX. MEDICATIONS: 1. OxyContin 10 mg b.i.d. 2. Xanax 0.25 mg b.i.d. as needed. 3. Nexium 40 mg daily. 4. Toprol-XL 50 mg daily. 5. Torsemide 10 mg b.i.d. 6. Losartan 25 mg daily. FAMILY HISTORY: Denies sudden cardiac within the family. SOCIAL HISTORY: Denies tobacco or alcohol abuse. REVIEW OF SYSTEMS: Fourteen systems were reviewed including osteopathic. Pertinent positives and negatives above, otherwise negative. PHYSICAL EXAMINATION: VITAL SIGNS: Temperature 97.7, heart rate 117, blood pressure 123/85, respirations 38, pulse oximetry 97 on room air. GENERAL: The patient is chronically ill appearing and thin. No acute distress. HEENT: Extraocular muscles intact. Mucous membranes moist. NECK: Supple. No JVD at 45 degrees. No carotid bruits heard bilaterally. HEART: Tachycardic, but regular. No noticeable murmurs. LUNGS: Decreased breath sounds bilaterally, but no overt wheezes, rales or rhonchi. ABDOMEN: Soft, nontender, nondistended. No organomegaly noted. EXTREMITIES: Show no clubbing, cyanosis or edema. Femoral and distal pulses intact bilaterally. NEUROLOGIC: She is awake with no focal deficits, although difficult to understand her speech. There may be some slight right-sided facial droop, although difficult to determine. LABORATORY DATA: Hemoglobin 12.0, hematocrit 36.4, platelets 385. Potassium 4.0, BUN 17, creatinine 0.91, troponin 0.15. Electrocardiogram (03/03/2018 at 1725): Sinus tachycardia, occasional PACs, LVH, possible normal variant. IMPRESSION: 1. Chronic systolic heart failure with a previous ejection fraction of less than 20% by echocardiogram. 2. Questionable acute stroke. 3. Hypertension. 4. Metastatic carcinoid tumor. 5. Urinary tract infection. RECOMMENDATIONS: 1. Ms. Mary appears to have cardiomyopathy of unknown cause. At this time, she is not a candidate for further invasive workup due to her overall malignancy and plan for conservative care from a medical standpoint. 2. We will attempt to place her on beta macarena therapy to help with her overall heart rate. 3. The patient did have a minimal elevation spell, but this is most likely due to her congestive heart failure. Once again, she is not an invasive workup candidate. 4. At this time they are waiting on family and consideration of hospice, which I think would be a reasonable option. Palliative care will continue to follow from that standpoint to help out with decisions. Thank you for allowing me to see Lady Mary. If there are any questions, please do not hesitate to call. Agusto Aguilar DO VGP/ct , 03:27 PM , 03:40 PM
--- NOTE | 2018-03-04 18:16 | P.PNNEU ---
Subjective Subjective Comments: no new neurologic sx. Feels left side is strong Active Medications: Active Medications Acetaminophen (Tylenol) 650 mg PO Q4H PRN PRN Reason: Temp > 100.4 Alprazolam (Xanax) 0.25 mg PO BID PRN PRN Reason: ANXIETY Last Admin: 03/04/18 09:10 Dose: 0.25 mg Amlodipine Besylate (Norvasc) 5 mg PO DAILY [facility] Last Admin: 03/04/18 08:14 Dose: 5 mg Aspirin (Aspirin) 325 mg PO DAILY [facility] Last Admin: 03/04/18 09:10 Dose: 325 mg Chlorhexidine Gluconate (Chlorhexidine 2% Cloth) 3 pack TOPICAL DAILY@0400 [facility] Stop: 03/09/18 03:59 Chlorhexidine Gluconate (Chlorhexidine 2% Cloth) 3 pack TOPICAL DAILY@0400 PRN PRN Reason: Extra cloth needed Stop: 03/09/18 03:59 Enoxaparin Sodium (Lovenox Inj) 40 mg SQ Q24H [facility] Last Admin: 03/04/18 11:33 Dose: 40 mg Haloperidol (Haldol) 0.5 mg PO BID [facility] Labetalol HCl (Trandate Inj) 5 mg IV.PUSH Q4H PRN PRN Reason: BLOOD PRESSURE MANAGEMENT Last Admin: 03/04/18 01:07 Dose: 5 mg Metoprolol Succinate (Toprol Xl) 50 mg PO DAILY [facility] Last Admin: 03/04/18 14:16 Dose: 50 mg Ondansetron HCl (Zofran Inj) 4 mg IV.PUSH Q6H PRN PRN Reason: NAUSEA OR VOMITING Pantoprazole Sodium (Protonix) 20 mg PO DAILY [facility] Last Admin: 03/04/18 08:14 Dose: 20 mg Sodium Chloride (Ns Flush) 2 ml IV.FLUSH BID [facility] Last Admin: 03/04/18 08:14 Dose: 2 ml Sodium Chloride (Ns Flush) 2 ml IV.FLUSH PRN PRN PRN Reason: FLUSH AFTER USING IV ACCESS Last Admin: 03/04/18 08:14 Dose: 2 ml Allergies/Adverse Reactions: Allergies Allergy/AdvReac Type Severity Reaction Status Date / Time amitriptyline AdvReac Severe PT STATES Verified 02/22/18 18:42 "KEEPS ME FROM URINATING" aspirin AdvReac Severe RINGING Verified 02/22/18 18:42 EARS clonazepam AdvReac Severe RINGING IN Verified 02/22/18 18:42 EARS clorazepate dipotassium AdvReac Severe RINGING IN Verified 02/22/18 18:42 EARS cyclobenzaprine AdvReac Severe EARS Verified 02/22/18 18:42 RINGING diazepam AdvReac Severe RINGING IN Verified 02/22/18 18:42 EARS lorazepam AdvReac Severe RINGING IN Verified 02/22/18 18:42 EARS midazolam AdvReac Severe RINGING IN Verified 02/22/18 18:42 EARS oxazepam AdvReac Severe RINGING IN Verified 02/22/18 18:42 EARS temazepam AdvReac Severe RINGING IN Verified 02/22/18 18:42 EARS mucinex AdvReac Intermediate Hives Uncoded 02/22/18 18:42 Physical Exam Vital signs: Vital Signs 03/03/18 18:30 03/03/18 19:00 03/03/18 19:30 Temperature Pulse Rate 117 H 114 H 112 H Respiratory Rate 38 H 32 H 32 H Blood Pressure 150/108 H 149/96 H 147/97 H Pulse Oximetry 98 97 99 03/03/18 19:31 03/03/18 20:00 03/03/18 20:18 Temperature 98.6 F Pulse Rate 118 H 117 H Respiratory Rate 41 H 35 H Blood Pressure 152/102 H 146/103 H Pulse Oximetry 100 96 96 03/03/18 20:30 03/03/18 21:00 03/03/18 22:00 Temperature Pulse Rate 116 H 104 H 115 H Respiratory Rate 35 H 37 H 43 H Blood Pressure 136/95 H 135/99 H Pulse Oximetry 96 96 97 03/03/18 22:06 03/03/18 23:00 03/04/18 00:00 Temperature 98.6 F Pulse Rate 115 H 113 H 113 H Respiratory Rate 43 H 46 H 38 H Blood Pressure 157/92 H 139/104 H 138/100 H Pulse Oximetry 97 95 96 03/04/18 01:00 03/04/18 02:00 03/04/18 03:00 Temperature Pulse Rate 117 H 111 H Respiratory Rate 33 H 49 H 35 H Blood Pressure 148/109 H 138/99 H 139/95 H Pulse Oximetry 96 95 96 03/04/18 04:00 03/04/18 05:00 03/04/18 06:00 Temperature 98.6 F Pulse Rate 117 H 121 H 109 H Respiratory Rate 43 H 44 H 36 H Blood Pressure 142/97 H 147/101 H 131/88 Pulse Oximetry 97 96 97 03/04/18 07:00 03/04/18 07:01 03/04/18 08:00 Temperature 97.7 F Pulse Rate 130 H 129 H 115 H Respiratory Rate 28 H 28 H 28 H Blood Pressure 138/104 H 130/97 H Pulse Oximetry 91 L 94 L 96 03/04/18 09:00 03/04/18 10:00 03/04/18 11:00 Temperature Pulse Rate 118 H 121 H 117 H Respiratory Rate 40 H 38 H 38 H Blood Pressure 128/95 H 128/97 H 123/85 Pulse Oximetry 97 97 97 03/04/18 12:00 03/04/18 13:00 03/04/18 14:00 Temperature 99.3 F Pulse Rate 119 H 124 H 122 H Respiratory Rate 41 H 40 H 41 H Blood Pressure 126/88 116/83 115/88 Pulse Oximetry 93 L 94 L 92 L 03/04/18 15:00 03/04/18 16:00 Temperature 99.0 F Pulse Rate 122 H 116 H Respiratory Rate 41 H 39 H Blood Pressure 118/88 129/100 H Pulse Oximetry 93 L 94 L Intake & Output 03/03/18 03/04/18 03/04/18 18:59 06:59 18:59 Intake Total 30 / 30 1120 / 1120 1166 / 1166 Output Total 200 / 200 100 / 100 Balance -170 / -170 1120 / 1120 1066 / 1066 Weight 67 kg Intake: IV 30 / 30 1000 / 1000 1166 / 1166 NS + KCl 20 mEq Inj 1,000 ML @ 1000 / 1000 1166 / 1166 100 mls/hr IV.CONT .Q10H [facility] Rx #:[id number] KCl 20 mEq Premix Inj 20 meq In 30 / 30 100 ml @ 50 mls/hr IV.SIG ONCE ONE Rx#:[id number] Oral 120 / 120 Output: Urine 100 / 100 Urine Amount (Catheter) 200 / 200 Straight 200 / 200 Other: # Voids 2 # Incontinent Voids 1 Date of Last Bowel Movement 03/03/18 # Bowel Movements 0 - Routine Neurological Exam alert, follow commands CN intact MOTOR 5/5 BUE - Urinary Catheter Management Straight Cath placed during this visit: no Objective Radiology Results: CTA neck--no significant carotid stenosis EEG--mild slowing. No seizure activity Laboratory Results - last 24 hr 03/03/18 03/03/18 03/04/18 15:44 23:34 06:13 WBC 12.2 H RBC 4.31 Hgb 12.0 Hct 36.4 MCV 84.3 MCH 27.7 MCHC 32.9 RDW 19.0 H Plt Count 385 D MPV 8.8 Neut % (Auto) 88.0 H Lymph % (Auto) 5.3 L [place] % (Auto) 6.4 Eos % (Auto) 0.0 Baso % (Auto) 0.3 Neut # (Auto) 10.7 H Lymph # (Auto) 0.6 L [place] # (Auto) 0.8 Eos # (Auto) 0.0 Baso # (Auto) 0.0 WBC Differential . Differential Comment Auto diff final Sodium Potassium Chloride Carbon Dioxide Anion Gap BUN Creatinine Estimated GFR Random Glucose Calcium Total Bilirubin AST ALT Alkaline Phosphatase Total Creatine Kinase Troponin I 0.18 H 0.15 H Total Protein Albumin 03/04/18 03/04/18 06:13 08:50 WBC RBC Hgb Hct MCV MCH MCHC RDW Plt Count MPV Neut % (Auto) Lymph % (Auto) [place] % (Auto) Eos % (Auto) Baso % (Auto) Neut # (Auto) Lymph # (Auto) [place] # (Auto) Eos # (Auto) Baso # (Auto) WBC Differential Differential Comment Sodium 147 H Potassium 4.0 Chloride 117 H Carbon Dioxide 20.3 L Anion Gap 10 BUN 17 Creatinine 0.91 Estimated GFR 76 L Random Glucose 144 H Calcium 9.1 Total Bilirubin 1.0 AST 30 ALT 36 Alkaline Phosphatase 360 H Total Creatine Kinase 40 Troponin I 0.12 H Total Protein 6.6 D Albumin 2.5 L Microbiology 03/01/18 13:34 Aerobic Blood Culture - Preliminary Blood - Peripheral No growth in 3 days Anaerobic Blood Culture - Preliminary No growth in 3 days 03/01/18 13:28 Aerobic Blood Culture - Preliminary Blood - Peripheral No growth in 3 days Anaerobic Blood Culture - Preliminary No growth in 3 days Review/Management - Diagnosis (1) TIA (transient ischemic attack) Code(s): G45.9 - Transient cerebral ischemic attack, unspecified Status: Acute Current Visit: Yes - Review/Management Plan: continue asa MRI brain echocardiogram
[2018-03-04] MEDS: Sod Chloride 0.9% Inj 1,000 ML IV.CONT SCH (19:48)
[2018-03-05] MEDS: Chlorhexidine Gluconate 2% 1 Pack (2 Cloths) TOPICAL SCH ×2 (01:34→04:55)
[2018-03-05] MEDS: Sod Chloride 0.9% Inj 1,000 ML IV.CONT SCH ×2 (06:04→19:38)
[2018-03-05] MEDS ORDERED: Vancomycin Consult Pharmacy OTHER PRN (08:57)
[2018-03-05] MEDS ORDERED: Vancomycin Inj 1,000 MG in Sodium Chlor 0.9% Inj 250 ML IV.SIG ONE (08:57)
--- NOTE | 2018-03-05 09:09 | XR ---
EXAM DATE: 03/05/2018 9:04 AM EST AGE/SEX: 62 years / Female INDICATIONS: Shortness of breath, evaluate for pneumonia. CLINICAL DATA: This is the patient's subsequent encounter. Patient reports that signs and symptoms h ave been present for 4 - 6 days and indicates a pain score of 0/10. MEDICAL/SURGICAL HISTORY: Carcinoma, bone. Carcinoma, lung. Hypertension. Liver cancer. Non e. COMPARISON: [facility], CHEST 1V SINGLE AP, 03/03/2018. . FINDINGS: The heart is enlarged with moderate interstitial edema and large right pleural effusion. Trace effusi on on the left. The portion of the bony skeleton visualized is unremarkable. CONCLUSION: Interval improvement with less interstitial edema. Moderate failure remains Large right pleural effusion. Electronically signed by: Keagan Becerril MD 03/05/2018 9:08 AM EST
[2018-03-05] MEDS ORDERED: Azithromycin Inj 500 MG in Sodium Chlor 0.9% Inj 250 ML IV.SIG SCH (10:00)
[2018-03-05] MEDS: Aspirin 325 MG Tablet PO SCH (11:18)
[2018-03-05] MEDS: Enoxaparin Inj 40 MG/0.4 ML Syringe SQ SCH (11:19)
[2018-03-05] MEDS: amLODIPine 5 MG Tablet PO SCH (11:19)
[2018-03-05] MEDS: Piperacil/Tazo 4.5 GM Premix 4.5 GM/100 ML BAG IV.SIG SCH ×2 (11:19→19:38)
[2018-03-05] MEDS: Pantoprazole Sodium 20 MG DR Tablet PO SCH (11:19)
[2018-03-05] MEDS ORDERED: Vancomycin Inj 1,250 MG in Sodium Chlor 0.9% Inj 250 ML IV.SIG SCH (12:00)
--- NOTE | 2018-03-05 12:07 | P.PNFP ---
Subjective Interval history: No acute events overnight. Palliative care and hospice are consulted and with them we are having conversations about potentially moving towards comfort care. Her son was at the bedside today and we had extensive discussion about this. He plans on talking to his sister and any other family members he can get in contact with more about this. Ms. Mary remains confused and does not comprehend the care she is receiving and has little concept of future medical planning. She was oriented to person and place this morning, however not to time. His orientation is intermittent. Per her son she does not seem to be having any hallucinations this morning. <Gil Mensah - 03/05/18 12:00> Results - Labs Result diagrams: 03/04/18 06:13 03/04/18 06:13 <Amilcar Baig - 03/05/18 14:03> - Imaging Impressions Chest Ultrasound 03/05/18 00:00 CONCLUSION: 1. Ultrasound exam confirms moderate size right pleural effusion. Chest X-Ray 03/05/18 00:00 CONCLUSION: Interval improvement with less interstitial edema. Moderate failure remains Large right pleural effusion. <Amilcar Baig - 03/05/18 14:03> Impressions Chest X-Ray 03/05/18 00:00 CONCLUSION: Interval improvement with less interstitial edema. Moderate failure remains Large right pleural effusion. <Gil Mensah - 03/05/18 12:00> Physical Exam Vital signs: Vital Signs 03/04/18 15:00 03/04/18 16:00 03/04/18 17:00 Temperature 99.0 F Pulse Rate 122 H 116 H 117 H Respiratory Rate 41 H 39 H 41 H Blood Pressure 118/88 129/100 H 127/90 Pulse Oximetry 93 L 94 L 95 03/04/18 18:00 03/04/18 19:00 03/04/18 19:06 Temperature Pulse Rate 109 H 121 H 124 H Respiratory Rate 33 H 51 H 48 H Blood Pressure 121/83 127/89 Pulse Oximetry 96 96 96 03/04/18 19:33 03/04/18 20:00 03/04/18 21:00 Temperature 98.3 F Pulse Rate 105 H 109 H Respiratory Rate 36 H 30 H Blood Pressure 119/85 121/85 Pulse Oximetry 96 94 L 93 L 03/04/18 22:00 03/04/18 23:00 03/05/18 00:00 Temperature Pulse Rate 112 H 118 H 123 H Respiratory Rate 31 H 45 H 43 H Blood Pressure 124/96 H 123/87 Pulse Oximetry 93 L 95 96 03/05/18 00:01 03/05/18 00:37 03/05/18 00:38 Temperature 98 F Pulse Rate 124 H 112 H 110 H Respiratory Rate 48 H 39 H 40 H Blood Pressure 150/102 H 142/102 H 141/105 H Pulse Oximetry 99 100 100 03/05/18 01:00 03/05/18 02:00 03/05/18 03:00 Temperature Pulse Rate 101 H 108 H 111 H Respiratory Rate 29 H 30 H 28 H Blood Pressure 123/84 128/94 H 138/98 H Pulse Oximetry 100 100 93 L 03/05/18 04:00 03/05/18 05:00 03/05/18 07:35 Temperature 98 F Pulse Rate 110 H 111 H Respiratory Rate 32 H 32 H Blood Pressure 127/94 H 138/88 Pulse Oximetry 100 100 100 03/05/18 12:54 Temperature Pulse Rate Respiratory Rate Blood Pressure Pulse Oximetry 100 Intake & Output 03/04/18 03/05/18 03/05/18 18:59 06:59 18:59 Intake Total 1166 / 1166 1100 / 1100 Output Total 100 / 100 700 / 700 Balance 1066 / 1066 400 / 400 Weight 67.9 kg Intake: IV 1166 / 1166 1000 / 1000 NS + KCl 20 mEq Inj 1,000 ML @ 1166 / 1166 100 mls/hr IV.CONT .Q10H [facility] Rx #:[id number] NS Inj 1,000 ML @ 100 mls/hr IV 1000 / 1000 .CONT .Q10H [facility] Rx#:[id number] Oral 100 / 100 Output: Urine 100 / 100 700 / 700 <Amilcar Baig - 03/05/18 14:03> Vital Signs 03/04/18 12:00 03/04/18 13:00 03/04/18 14:00 Temperature 99.3 F Pulse Rate 119 H 124 H 122 H Respiratory Rate 41 H 40 H 41 H Blood Pressure 126/88 116/83 115/88 Pulse Oximetry 93 L 94 L 92 L 03/04/18 15:00 03/04/18 16:00 03/04/18 17:00 Temperature 99.0 F Pulse Rate 122 H 116 H 117 H Respiratory Rate 41 H 39 H 41 H Blood Pressure 118/88 129/100 H 127/90 Pulse Oximetry 93 L 94 L 95 03/04/18 18:00 03/04/18 19:00 03/04/18 19:06 Temperature Pulse Rate 109 H 121 H 124 H Respiratory Rate 33 H 51 H 48 H Blood Pressure 121/83 127/89 Pulse Oximetry 96 96 96 03/04/18 19:33 03/04/18 20:00 03/04/18 21:00 Temperature 98.3 F Pulse Rate 105 H 109 H Respiratory Rate 36 H 30 H Blood Pressure 119/85 121/85 Pulse Oximetry 96 94 L 93 L 03/04/18 22:00 03/04/18 23:00 03/05/18 00:00 Temperature Pulse Rate 112 H 118 H 123 H Respiratory Rate 31 H 45 H 43 H Blood Pressure 124/96 H 123/87 Pulse Oximetry 93 L 95 96 03/05/18 00:01 03/05/18 00:37 03/05/18 00:38 Temperature 98 F Pulse Rate 124 H 112 H 110 H Respiratory Rate 48 H 39 H 40 H Blood Pressure 150/102 H 142/102 H 141/105 H Pulse Oximetry 99 100 100 03/05/18 01:00 03/05/18 02:00 03/05/18 03:00 Temperature Pulse Rate 101 H 108 H 111 H Respiratory Rate 29 H 30 H 28 H Blood Pressure 123/84 128/94 H 138/98 H Pulse Oximetry 100 100 93 L 03/05/18 04:00 03/05/18 05:00 03/05/18 07:35 Temperature 98 F Pulse Rate 110 H 111 H Respiratory Rate 32 H 32 H Blood Pressure 127/94 H 138/88 Pulse Oximetry 100 100 100 Intake & Output 03/04/18 03/05/18 03/05/18 18:59 06:59 18:59 Intake Total 1166 / 1166 1100 / 1100 Output Total 100 / 100 700 / 700 Balance 1066 / 1066 400 / 400 Weight 67.9 kg Intake: IV 1166 / 1166 1000 / 1000 NS + KCl 20 mEq Inj 1,000 ML @ 1166 / 1166 100 mls/hr IV.CONT .Q10H [facility] Rx #:[id number] NS Inj 1,000 ML @ 100 mls/hr IV 1000 / 1000 .CONT .Q10H [facility] Rx#:[id number] Oral 100 / 100 Output: Urine 100 / 100 700 / 700 <Gil Mensah - 03/05/18 11:57> Narrative: General: Confused, oriented x2, appears in some mild distress, speaking in full , but incoherent sentences. HEENT: Atraumatic, moist mucous membranes Cardiac: Tachycardic with regular rhythm and without murmur Pulmonary: Tachypneic, without retractions, breath sounds diminished on the right Abdomen: Non-tender without rebound or guarding, there is a palpable mass in the right upper quadrant. Neurologic: She continues to have difficulty following commands and some dysarthria. 5/5 strength in all 4 extremities. <Gil Mensah - 03/05/18 12:00> - Urinary Catheter Management Straight Cath placed during this visit: no <Amilcar Baig - 03/05/18 14:03> no <Gil Mensah - 03/05/18 12:01> Assessment and Plan - Assessment (1) Pneumonia Code(s): J18.9 - Pneumonia, unspecified organism Status: Acute (2) Stroke Code(s): I63.9 - Cerebral infarction, unspecified Status: Acute (3) HFrEF (heart failure with reduced ejection fraction) Code(s): I50.20 - Unspecified systolic (congestive) heart failure Status: Acute (4) Acute UTI Code(s): N39.0 - Urinary tract infection, site not specified Status: Acute (5) Acute hypokalemia Code(s): E87.6 - Hypokalemia Status: Acute (6) Altered mental status Code(s): R41.82 - Altered mental status, unspecified Status: Acute (7) Metastatic carcinoid tumor Code(s): C7B.00 - Secondary carcinoid tumors, unspecified site Status: Acute (8) Hypertension Code(s): I10 - Essential (primary) hypertension Status: Acute <Amilcar Baig - 03/05/18 14:03> (1) Pneumonia Code(s): J18.9 - Pneumonia, unspecified organism Status: Acute (2) Stroke Code(s): I63.9 - Cerebral infarction, unspecified Status: Acute (3) HFrEF (heart failure with reduced ejection fraction) Code(s): I50.20 - Unspecified systolic (congestive) heart failure Status: Acute (4) Acute UTI Code(s): N39.0 - Urinary tract infection, site not specified Status: Acute (5) Acute hypokalemia Code(s): E87.6 - Hypokalemia Status: Acute (6) Altered mental status Code(s): R41.82 - Altered mental status, unspecified Status: Acute (7) Metastatic carcinoid tumor Code(s): 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 She had a stroke or TIA during admission, MRI is ordered. She had worsening infiltration and pleural effusion in her right lung and is now being treated for pneumonia. She remains confused and does not have decision-making capacity. Pneumonia: She has been afebrile, had mild WBC elevation yesterday, and has been tachypneic. 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, but began spreading about 1 year ago -She has sclerotic lesions in her frontal bone, and known lesions mild in the lungs, a mass in her left chest wall, lesions and in her liver Hypokalemia -Potassium yesterday was 4.0, BMP today ordered and not yet collected Hypertension -Blood pressures here have been overall stable, however we will continue her home medication amlodipine 5 mg daily -She has been tachycardic, currently on metoprolol succinate 50 Comfort care: -Per discussion with her family they have changed her CODE STATUS to DO NOT RESUSCITATE -Haldol 0.5 mg twice daily scheduled, Xanax 0.25 mg twice daily as needed (this is one of her home meds) -She does not have capacity because she cannot understand her current medical care. She does not have a designated healthcare surrogate. She has a son and daughter who are making medical decisions for her. They are speaking with palliative care as well as hospice and our team. No final decision has been made at this point. Fluids: Adequate p.o. intake Electrolytes: monitor and replete as needed Nutrition:. Diet and nectar thick liquids GI prophylaxis: P.o. Protonix VTE prophylaxis: Subcutaneous Lovenox <Gil Mensah - 03/05/18 12:00> - Attending Attestation See the residents documentation for details. I saw and evaluated the patient regarding the massey portions of this evaluation and agree with the residents findings and plans as written. Parts of this note were created using [employer] voice recognition software program. While efforts were made to correct any mistakes made by this software, some mistakes, errors, and omissions may remain in the final note that were not caught when the note was originally created. Plan of care was discussed and agreed upon with the patient as specifically documented in the above note. An opportunity to ask questions with explanation was provided. Patient voiced understanding on all information reviewed and discussed. <Amilcar Baig - 03/05/18 14:03> <Gil Mensah J - Last Filed: 03/05/18 12:01> (1) Pneumonia Qualifiers: Pneumonia type: due to unspecified organism Laterality: right Lung location : lower lobe of lung Qualified Code(s): J18.1 - Lobar pneumonia, unspecified organism <Amilcar Baig - Last Filed: 03/05/18 14:03> (1) Pneumonia Qualifiers: Pneumonia type: due to unspecified organism Laterality: right Lung location : lower lobe of lung Qualified Code(s): J18.1 - Lobar pneumonia, unspecified organism <Gil Mensah - Last Filed: 03/05/18 12:01> (1) Pneumonia Qualifiers: Pneumonia type: due to unspecified organism Laterality: right Lung location : lower lobe of lung Qualified Code(s): J18.1 - Lobar pneumonia, unspecified organism <Amilcar Baig - Last Filed: 03/05/18 14:03> (1) Pneumonia Qualifiers: Pneumonia type: due to unspecified organism Laterality: right Lung location : lower lobe of lung Qualified Code(s): J18.1 - Lobar pneumonia, unspecified organism
--- NOTE | 2018-03-05 13:56 | US ---
EXAM DATE: 03/05/2018 11:38 AM EST AGE/SEX: 62 years / Female INDICATIONS: Right pleural effusion. CLINICAL DATA: This is the patient's initial encounter. Patient reports that signs and symptoms have been present for 1 day and indicates a pain score of 0/10. MEDICAL/SURGICAL HISTORY: Congestive heart failure. Hypercholesterolemia. Hypertension. Anxi ety. Malignant neoplasm of bone. Peptic ulcer. Liver cancer. Lung cancer. Pancreatic tumor. Hysterec garfield. Parathyroidectomy. Resection of stomach. Left total knee replacement. Pituitary resection. COMPARISON: [facility] – [place], [place] CHEST W CONTRAST, 03/01/2018. . MEASUREMENTS: Skin To Parietal Pleura:__2.1 cm Skin To Max Safe Depth:__4.1 cm Estimated Fluid Volume:__668 cc Fluid Composition:__simple FINDINGS: Pleural effusion as above. CONCLUSION: 1. Ultrasound exam confirms moderate size right pleural effusion. Electronically signed by: Nasim Mobley MD 03/05/2018 1:55 PM EST
--- NOTE | 2018-03-05 14:35 | P.PNPAL ---
Reason for Visit Reason for visit: a. To assist with evaluation and management of symptoms including: pain b. To assist medical decision maker(s) with: better understanding of current medical conditions; weighing benefits/burdens of medical treatment options; making medical treatment decisions. 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 She presented to the emergency room with her daughter who was reporting the patient had been having insomnia, having bizarre flight of ideas, was hallucinating, and confused. Since that time she has remained mostly confused, with periods of lucidity. She was positive for UTI This morning, patient was found with left-sided weakness and left-sided facial droop, stroke was activated. At that time, she was having dysarthria, was following some commands. Brain CT was essentially negative. She was evaluated by neurology, recommended brain MRI, EEG, echo, and a neck CT for stroke versus TIA. Additional history: Daughter indicates patient was originally diagnosed in the with carcinoid tumor. 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 She apparently was found to have metastatic disease about a year ago.She has been treated at both [facility] and [facility] over the years. Dual visit Telma, hospice admission nurse. Patient is alert and awake moving all extremities, she is quite restless and easily agitated in the bed. Breathing normal on room air, vital signs stable per fiber machine tender. Had brief discussion with Dr. Wen yesterday morning regarding plans for discharge. Hospice nurse called daughter with plans to meet later today. We will likely transition to comfort, possibly discharged to care center for better management of her agitation before transitioning home. Objective Vital Signs: Vital Signs 03/04/18 15:00 03/04/18 16:00 03/04/18 17:00 Temperature 99.0 F Pulse Rate 122 H 116 H 117 H Respiratory Rate 41 H 39 H 41 H Blood Pressure 118/88 129/100 H 127/90 Pulse Oximetry 93 L 94 L 95 03/04/18 18:00 03/04/18 19:00 03/04/18 19:06 Temperature Pulse Rate 109 H 121 H 124 H Respiratory Rate 33 H 51 H 48 H Blood Pressure 121/83 127/89 Pulse Oximetry 96 96 96 03/04/18 19:33 03/04/18 20:00 03/04/18 21:00 Temperature 98.3 F Pulse Rate 105 H 109 H Respiratory Rate 36 H 30 H Blood Pressure 119/85 121/85 Pulse Oximetry 96 94 L 93 L 03/04/18 22:00 03/04/18 23:00 03/05/18 00:00 Temperature Pulse Rate 112 H 118 H 123 H Respiratory Rate 31 H 45 H 43 H Blood Pressure 124/96 H 123/87 Pulse Oximetry 93 L 95 96 03/05/18 00:01 03/05/18 00:37 03/05/18 00:38 Temperature 98 F Pulse Rate 124 H 112 H 110 H Respiratory Rate 48 H 39 H 40 H Blood Pressure 150/102 H 142/102 H 141/105 H Pulse Oximetry 99 100 100 03/05/18 01:00 03/05/18 02:00 03/05/18 03:00 Temperature Pulse Rate 101 H 108 H 111 H Respiratory Rate 29 H 30 H 28 H Blood Pressure 123/84 128/94 H 138/98 H Pulse Oximetry 100 100 93 L 03/05/18 04:00 03/05/18 05:00 03/05/18 07:35 Temperature 98 F Pulse Rate 110 H 111 H Respiratory Rate 32 H 32 H Blood Pressure 127/94 H 138/88 Pulse Oximetry 100 100 100 03/05/18 12:54 Temperature Pulse Rate Respiratory Rate Blood Pressure Pulse Oximetry 100 Intake & Output 03/04/18 03/05/18 03/05/18 18:59 06:59 18:59 Intake Total 1166 / 1166 1100 / 1100 Output Total 100 / 100 700 / 700 Balance 1066 / 1066 400 / 400 Weight 67.9 kg Intake: IV 1166 / 1166 1000 / 1000 NS + KCl 20 mEq Inj 1,000 ML @ 1166 / 1166 100 mls/hr IV.CONT .Q10H MALLY Rx #:[id number] NS Inj 1,000 ML @ 100 mls/hr IV 1000 / 1000 .CONT .Q10H MALLY Rx#:[id number] Oral 100 / 100 Output: Urine 100 / 100 700 / 700 Physical Exam: CONSTITUTIONAL/GENERAL: This is an adequately nourished patient, in no apparent distress. TUBES/LINES/DRAINS: peripheral IV SKIN: No jaundice, rashes, or lesions. Ecchymoses on upper extremities. No wounds seen anteriorly. Skin temperature appropriate. Not diaphoretic. HEAD: Atraumatic. Normocephalic. EYES: Pupils equal and round and reactive. NECK: Trachea midline. Supple, nontender. No palpable thyroid enlargement or nodularity. CARDIOVASCULAR: Regular rate and rhythm without murmurs, gallops, or rubs. No JVD. Peripheral pulses symmetric. RESPIRATORY/CHEST: Symmetric, unlabored respirations. Clear to auscultation. Breath sounds equal bilaterally. No wheezes, rales, or rhonchi. GASTROINTESTINAL: Abdomen soft, non-tender, nondistended. No hepato-splenomegaly , or palpable masses. No guarding. Bowel sounds present. GENITOURINARY: Without palpable bladder distension. Ochoa catheter in place. MUSCULOSKELETAL: Extremities without clubbing, cyanosis, or edema. No joint effusion noted. No calf tenderness. No mottling or clubbing. NEUROLOGICAL: Alert and awake, restless. Clear speech though nonsensical. Moves all extremities. Asking to be "plugged in" PSYCHIATRIC: Restless, anxious, easily agitated Diagnostic Tests Laboratory: Laboratory Results - last 72 hr 03/02/18 03/02/18 03/02/18 15:56 15:56 17:35 WBC RBC Hgb Hct MCV MCH MCHC RDW Plt Count MPV Prelim Diff (Auto) Neut % (Auto) Lymph % (Auto) Mccreary % (Auto) Eos % (Auto) Baso % (Auto) Neut # (Auto) Lymph # (Auto) Mccreary # (Auto) Eos # (Auto) Baso # (Auto) WBC Differential Diff Scan Differential Comment Platelet Estimate Platelet Morphology Hematology Comments PT INR APTT Fibrinogen Sodium 142 Potassium 2.9 L* Chloride 111 H Carbon Dioxide 22.6 Anion Gap 8 BUN 8 Creatinine 0.85 Estimated GFR 82 L POC Glucose 128 H Random Glucose 150 H Calcium 8.2 L Magnesium 1.4 L Total Bilirubin AST ALT Alkaline Phosphatase Total Creatine Kinase Troponin I Total Protein Albumin Urine Color Urine Clarity Urine pH Ur Specific [place] Urine Protein Urine Glucose (UA) Urine Ketones Urine Occult Blood Urine Nitrate Urine Bilirubin Urine Urobilinogen Ur Leukocyte Esterase Urine RBC Urine WBC Urine Mucus Micro UA Comment Ur Microscopic Review Urine Culture Comments Nasal Screen MRSA (PCR) Blood Type Antibody Screen Antibody Identification MTS Gel Crossmatch Bld Prod Order Comment 03/03/18 03/03/18 03/03/18 04:30 04:30 09:04 WBC 8.7 RBC 4.02 Hgb 11.2 L Hct 34.0 L MCV 84.4 MCH 28.0 MCHC 33.1 RDW 17.7 H Plt Count 374 MPV 8.8 Prelim Diff (Auto) Neut % (Auto) 78.5 H Lymph % (Auto) 11.1 Mccreary % (Auto) 7.5 Eos % (Auto) 1.5 Baso % (Auto) 1.4 Neut # (Auto) 6.8 Lymph # (Auto) 1.0 Mccreary # (Auto) 0.7 Eos # (Auto) 0.1 Baso # (Auto) 0.1 WBC Differential . Diff Scan Differential Comment Auto diff final Platelet Estimate Platelet Morphology Hematology Comments PT INR APTT Fibrinogen Sodium 143 Potassium 3.2 L Chloride 112 H Carbon Dioxide 21.8 Anion Gap 9 BUN 6 L Creatinine 0.77 Estimated GFR Greater than 89 POC Glucose 161 H Random Glucose 134 H Calcium 8.7 Magnesium Total Bilirubin AST ALT Alkaline Phosphatase Total Creatine Kinase Troponin I Total Protein Albumin Urine Color Urine Clarity Urine pH Ur Specific [place] Urine Protein Urine Glucose (UA) Urine Ketones Urine Occult Blood Urine Nitrate Urine Bilirubin Urine Urobilinogen Ur Leukocyte Esterase Urine RBC Urine WBC Urine Mucus Micro UA Comment Ur Microscopic Review Urine Culture Comments Nasal Screen MRSA (PCR) Blood Type Antibody Screen Antibody Identification MTS Gel Crossmatch Bld Prod Order Comment 03/03/18 03/03/18 03/03/18 10:12 10:25 10:42 WBC RBC Hgb Hct MCV MCH MCHC RDW Plt Count MPV Prelim Diff (Auto) Neut % (Auto) Lymph % (Auto) Mccreary % (Auto) Eos % (Auto) Baso % (Auto) Neut # (Auto) Lymph # (Auto) Mccreary # (Auto) Eos # (Auto) Baso # (Auto) WBC Differential Diff Scan Differential Comment Platelet Estimate Platelet Morphology Hematology Comments PT INR APTT Fibrinogen Sodium Potassium Chloride Carbon Dioxide Anion Gap BUN Creatinine Estimated GFR POC Glucose Random Glucose Calcium Magnesium Total Bilirubin AST ALT Alkaline Phosphatase Total Creatine Kinase Troponin I 0.09 H Total Protein Albumin Urine Color Urine Clarity Urine pH Ur Specific [place] Urine Protein Urine Glucose (UA) Urine Ketones Urine Occult Blood Urine Nitrate Urine Bilirubin Urine Urobilinogen Ur Leukocyte Esterase Urine RBC Urine WBC Urine Mucus Micro UA Comment Ur Microscopic Review Urine Culture Comments Nasal Screen MRSA (PCR) Not detected Blood Type O Positive Antibody Screen Positive H Antibody Identification MTS Gel Crossmatch See Detail Bld Prod Order Comment 03/03/18 03/03/18 03/03/18 10:42 10:42 10:42 WBC 10.7 RBC 4.65 Hgb 12.9 Hct 39.6 MCV 85.1 MCH 27.7 MCHC 32.5 RDW 18.6 H Plt Count 233 D MPV 9.6 Prelim Diff (Auto) Slide review pending Neut % (Auto) 90.9 H Lymph % (Auto) 3.7 L Mccreary % (Auto) 4.8 Eos % (Auto) 0.1 Baso % (Auto) 0.5 Neut # (Auto) 9.7 H Lymph # (Auto) 0.4 L Mccreary # (Auto) 0.5 Eos # (Auto) 0.0 Baso # (Auto) 0.1 WBC Differential . Diff Scan Auto diff confirmed Differential Comment . Platelet Estimate Normal Platelet Morphology Clumped H Hematology Comments PT 11.4 INR 1.1 APTT 23.1 L Fibrinogen 309 Sodium Potassium Chloride Carbon Dioxide Anion Gap BUN Creatinine Estimated GFR POC Glucose Random Glucose Calcium Magnesium Total Bilirubin AST ALT Alkaline Phosphatase Total Creatine Kinase 61 Troponin I Total Protein Albumin Urine Color Urine Clarity Urine pH Ur Specific [place] Urine Protein Urine Glucose (UA) Urine Ketones Urine Occult Blood Urine Nitrate Urine Bilirubin Urine Urobilinogen Ur Leukocyte Esterase Urine RBC Urine WBC Urine Mucus Micro UA Comment Ur Microscopic Review Urine Culture Comments Nasal Screen MRSA (PCR) Blood Type Antibody Screen Antibody Identification MTS Gel Crossmatch Bld Prod Order Comment 03/03/18 03/03/18 03/03/18 10:42 13:55 14:17 WBC RBC Hgb Hct MCV MCH MCHC RDW Plt Count MPV Prelim Diff (Auto) Neut % (Auto) Lymph % (Auto) Mccreary % (Auto) Eos % (Auto) Baso % (Auto) Neut # (Auto) Lymph # (Auto) Mccreary # (Auto) Eos # (Auto) Baso # (Auto) WBC Differential Diff Scan Differential Comment Platelet Estimate Platelet Morphology Hematology Comments PT INR APTT Fibrinogen Sodium 144 Potassium 3.4 L Chloride 113 H Carbon Dioxide 21.2 Anion Gap 10 BUN 8 Creatinine 0.83 Estimated GFR 85 L POC Glucose Random Glucose 152 H Calcium 9.2 Magnesium Total Bilirubin AST ALT Alkaline Phosphatase Total Creatine Kinase Troponin I Total Protein Albumin Urine Color Leticia Urine Clarity Clear Urine pH 6.0 Ur Specific M[place] Greater than 1.060 H Urine Protein 100 H Urine Glucose (UA) Negative Urine Ketones Negative Urine Occult Blood Negative Urine Nitrate Negative Urine Bilirubin Negative Urine Urobilinogen Less than 2 Ur Leukocyte Esterase Negative Urine RBC 7 H Urine WBC 1 Urine Mucus Many H Micro UA Comment Culture not ind Ur Microscopic Review Not Reportable Urine Culture Comments Culture not ind Nasal Screen MRSA (PCR) Blood Type Antibody Screen Antibody Identification Non-Specific Agglutinin MTS Gel Crossmatch Bld Prod Order Comment 03/03/18 03/03/18 03/03/18 15:44 16:35 23:34 WBC RBC Hgb Hct MCV MCH MCHC RDW Plt Count MPV Prelim Diff (Auto) Neut % (Auto) Lymph % (Auto) Mccreary % (Auto) Eos % (Auto) Baso % (Auto) Neut # (Auto) Lymph # (Auto) Mccreary # (Auto) Eos # (Auto) Baso # (Auto) WBC Differential Diff Scan Differential Comment Platelet Estimate Platelet Morphology Hematology Comments PT INR APTT Fibrinogen Sodium Potassium Chloride Carbon Dioxide Anion Gap BUN Creatinine Estimated GFR POC Glucose 129 H Random Glucose Calcium Magnesium Total Bilirubin AST ALT Alkaline Phosphatase Total Creatine Kinase Troponin I 0.18 H 0.15 H Total Protein Albumin Urine Color Urine Clarity Urine pH Ur Specific [place] Urine Protein Urine Glucose (UA) Urine Ketones Urine Occult Blood Urine Nitrate Urine Bilirubin Urine Urobilinogen Ur Leukocyte Esterase Urine RBC Urine WBC Urine Mucus Micro UA Comment Ur Microscopic Review Urine Culture Comments Nasal Screen MRSA (PCR) Blood Type Antibody Screen Antibody Identification MTS Gel Crossmatch Bld Prod Order Comment 03/04/18 03/04/18 03/04/18 06:13 06:13 08:50 WBC 12.2 H RBC 4.31 Hgb 12.0 Hct 36.4 MCV 84.3 MCH 27.7 MCHC 32.9 RDW 19.0 H Plt Count 385 D MPV 8.8 Prelim Diff (Auto) Neut % (Auto) 88.0 H Lymph % (Auto) 5.3 L Mccreary % (Auto) 6.4 Eos % (Auto) 0.0 Baso % (Auto) 0.3 Neut # (Auto) 10.7 H Lymph # (Auto) 0.6 L Mccreary # (Auto) 0.8 Eos # (Auto) 0.0 Baso # (Auto) 0.0 WBC Differential . Diff Scan Differential Comment Auto diff final Platelet Estimate Platelet Morphology Hematology Comments PT INR APTT Fibrinogen Sodium 147 H Potassium 4.0 Chloride 117 H Carbon Dioxide 20.3 L Anion Gap 10 BUN 17 Creatinine 0.91 Estimated GFR 76 L POC Glucose Random Glucose 144 H Calcium 9.1 Magnesium Total Bilirubin 1.0 AST 30 ALT 36 Alkaline Phosphatase 360 H Total Creatine Kinase 40 Troponin I 0.12 H Total Protein 6.6 D Albumin 2.5 L Urine Color Urine Clarity Urine pH Ur Specific [place] Urine Protein Urine Glucose (UA) Urine Ketones Urine Occult Blood Urine Nitrate Urine Bilirubin Urine Urobilinogen Ur Leukocyte Esterase Urine RBC Urine WBC Urine Mucus Micro UA Comment Ur Microscopic Review Urine Culture Comments Nasal Screen MRSA (PCR) Blood Type Antibody Screen Antibody Identification MTS Gel Crossmatch Bld Prod Order Comment Result Diagrams: 03/04/18 06:13 03/04/18 06:13 Microbiology: Microbiology 03/01/18 13:34 Aerobic Blood Culture - Preliminary Blood - Peripheral No growth in 4 days Anaerobic Blood Culture - Preliminary No growth in 4 days 03/01/18 13:28 Aerobic Blood Culture - Preliminary Blood - Peripheral No growth in 4 days Anaerobic Blood Culture - Preliminary No growth in 4 days Assessment and Plan - Symptom Scale (1) Confused 0-10 Scale: Unable to quantify (2) Pain 0-10 Scale: Unable to quantify (3) Weakness 0-10 Scale: Unable to quantify Pertinent Non-Medical Issues: Psychosocial: Patient is originally from [place], [place]. She is retired and disabled nurse. Prior to this hospitalization, patient was living with her daughter who is her primary caregiver for the past several years. Daughter indicates over the past year she has had a recurrent her brother at night while she works. Daughter reports she drops patient off at night picks her up in the morning. Spiritual: Associate Merchandise [employer]anner available Legal: Patient is currently incapacitated to make her own decisions. It is unlikely she will gain capacity. She has 2 children and no known healthcare surrogate or legal proxy. Per [place] statutes, decision making would fall to both children by default. Ethical issues impacting care: None Important Contacts: Daughter Shalonda [phone] Son Dimitri Hicks: [phone] Prognosis: Patient has a long history of widespread metastatic cancer. She had been apparently doing pretty well until the past couple years. Daughter indicates that she has had more confusion and required more care over the past year. Given new diagnosis of brain metastases/frontal bone metastases, and strokelike symptoms, she likely has a limited life expectancy. She would be medically eligible for hospice services if family's goals are appropriate. Code Status: Full Code Plan: Legal decision maker: Patient is currently incapacitated to make her own decisions. It is unlikely she will gain capacity. She has 2 children and no known healthcare surrogate or legal proxy. Per [place] statutes, decision making would fall to both children by default. Goals: Daughter now receptive to transition to hospice care. She reports she was fearful at first, as multiple people have told her that hospice would "medicate people to ," she would like her mother to be comfortable but does not want hospice to "kill her."After lengthy discussion regarding hospice goals and philosophy, patient's daughter is receptive to meeting with hospice for information and will likely transition to hospice in the coming days. Will need to convert to p.o. antibiotics prior to discharge. CODE STATUS: DNR SYMPTOMS: --Pain: Patient appears comfortable, daughter denies any recent history of pain. Anticipatory pain secondary to immobility. Has Tylenol ordered. Daughter is fearful of too much pain medications. Will need ongoing support regarding comfort measures. --Confusion: Has had more frequent periods of confusion and agitation requiring continuous care/supervision from family members. Daughter reports effective management with low dose Haldol. Patient's agitation/restlessness today may very well be likely due to scheduled Haldol being held, recommend NOT holding in the future. Palliative care will continue to follow during hospital course as condition evolves, to assist patient/decision-maker with understanding of medical conditions, weighing benefits/burdens of treatment options, for clarification of goals of treatment. Additionally will assist with any symptoms of palliative concern
--- NOTE | 2018-03-06 02:08 | P.DS ---
Date of admission: 03/01/18 08:53 Primary care physician: Juan Van III, MD Brief History from admission: She is a 62-year-old female with history of dementia and recurrent UTIs as well as carcinoid tumor presents today with altered mental status and UTI. She has no family currently in the room to aid in history giving and her history is limited secondary to her mental status. She states that we are trying to manipulate her and does not want to answer questions. She does know that she had some sort of tumor, but cannot tell us what type. She does state that it was removed, but does not know when. When asked about her medical and surgical history she is unable to tell us any more information. She is unable to confirm her medication she is taking. She has a mass in her left chest wall, she is unsure of how long it has been there. She does state that it causes her some pain. Through chart review we know that she has a carcinoid tumor. Her daughter stated that she was on chemotherapy for this during her ED visit on 02/10. At that time she had generalized weakness She denies headache, nausea, vomiting, chest pain, palpitations, shortness of breath, abdominal pain, change in bowel habits, increased frequency of urination or burning with urination. DS: Diagnosis - Discharge Diagnosis (1) Pneumonia Status: Acute (2) Stroke Status: Acute (3) HFrEF (heart failure with reduced ejection fraction) Status: Acute (4) Acute UTI Status: Acute (5) Acute hypokalemia Status: Acute (6) Altered mental status Status: Acute (7) Metastatic carcinoid tumor Status: Acute (8) Hypertension Status: Acute DS: Medications - Discharge Medications Prescriptions: haloperidol 0.5 mg PO TID #90 tab DS: Summary - Time Spent with Patient Total time spent providing and/or coordinating discharge services: - Quality: VTE Deep Vein Thrombosis/Pulmonary Embolism Present on Admission: No Exam Vital signs: Vital Signs 03/05/18 03:00 03/05/18 04:00 03/05/18 05:00 Temperature 98 F Pulse Rate 111 H 110 H 111 H Respiratory Rate 28 H 32 H 32 H Blood Pressure 138/98 H 127/94 H 138/88 Pulse Oximetry 93 L 100 100 03/05/18 07:35 03/05/18 12:54 03/05/18 19:42 Temperature Pulse Rate Respiratory Rate Blood Pressure Pulse Oximetry 100 100 99 Intake & Output 03/05/18 03/05/18 03/06/18 06:59 18:59 06:59 Intake Total 1100 / 1100 100 / 100 Output Total 700 / 700 Balance 400 / 400 100 / 100 Weight 67.9 kg Intake: IV 1000 / 1000 100 / 100 NS Inj 1,000 ML @ 100 mls/hr IV 1000 / 1000 .CONT .Q10H [facility]ALLY Rx#:[id number] Zosyn 4.5 GM Premix 4.5 gm In 100 / 100 100 ml @ 200 mls/hr IV.SIG Q6H [facility]ALLY Rx#:[id number] Oral 100 / 100 Output: Urine 700 / 700 Results Labs on day of discharge: Preliminary micro results at discharge 03/01/18 13:34 Aerobic Blood Culture - Preliminary Blood - Peripheral No growth in 4 days Anaerobic Blood Culture - Preliminary No growth in 4 days 03/01/18 13:28 Aerobic Blood Culture - Preliminary Blood - Peripheral No growth in 4 days Anaerobic Blood Culture - Preliminary No growth in 4 days - Impressions ITS Impressions Chest CT 03/01/18 07:34 CONCLUSION: 1. New extensive liver metastatic disease. 2. Increasing mediastinal adenopathy compared to the prior study. 3. Stable pleural-parenchymal changes are noted in both lung bases, right greater than left. 4. Single new 5 mm pulmonary nodule left midlung. Head CT 03/03/18 09:38 CONCLUSION: 1. No focal or acute intracranial hemorrhage. 2. No significant change compared to the prior examination. Report was called by [ Dr. Roman to Dr. Quiroz at 9:52 AM] Head CTA 03/03/18 09:38 CONCLUSION: 1. Unremarkable CTA of the brain. Report was called by [Dr. Roman to Dr. Quiroz at 10:11 AM. ] Neck CTA 03/03/18 09:38 CONCLUSION: 1. No acute abnormality is identified within the neck arterial vasculature. 2. Lymphadenopathy in the mediastinum and supraclavicular regions bilaterally unchanged from the prior chest CT from 2 days ago. However, the right pleural effusion has increased in volume and the left pleural effusion is new. Chest Ultrasound 03/05/18 00:00 CONCLUSION: 1. Ultrasound exam confirms moderate size right pleural effusion. Chest X-Ray 03/05/18 00:00 CONCLUSION: Interval improvement with less interstitial edema. Moderate failure remains Large right pleural effusion. Discharge Plan - Discharge Disposition Patient Disposition: [facility] Hospice/Med Facility - Discharge Condition Condition: Fair - Discharge Order Discharge Orders: Discharge Order (Routine); Ordered 03/05/18 Ordered By: Gil Mensah - Physicians Team Primary Care Provider: Juan Van III Attending Provider: Amilcar Baig Other Providers: Mat Betancourt MD ; Negrito Quiroz MD, PhD ; Agusto Aguilar DO
[2018-03-07] MEDS ORDERED: Pharmacy Ordered Lab Info OTHER ONE (11:45)
== END 2018-03-05 20:50 | disposition hospice, inpatient (51) ==
LOC: NEPC 03:39 → NEDA 08:53 → N04 10:35 → HIMC 03-03 10:00
PROVIDERS: ADMIT Family Medicine; ATTEND Family Medicine